=== PATIENT | male | born 1930 | race Caucasian/White ===

== ENCOUNTER 2017-06-03 23:28 | Inpatient (IN) | payer MEDICARE ==
[~2017-06-03] VITALS: Ht 177.8 cm; Wt 72.2 kg
[~2017-06-03 23:28] MED LIST: AMLO10TA3 PO; ASCO100089 PO; LOSA50TA37 PO; METO25TA6 PO; SIMV80TA4 PO; UBID100C25 PO; WARF2.5T82 PO
[2017-06-03 23:34] VITALS: BP 102/71; PULSE 169; RESP 26; O2SAT 97
--- NOTE | 2017-06-03 23:45 | ED.REPORT ---
HPI-General Illness Date of Service Jun 03, 2017 ED Provider: Dr. 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 He states he feels okay when he does not try to move or sit up, but becomes dizzy with minimal activity or upright posture. He reportedly felt dizzy, lightheaded and weak prior to the incident. His dizziness initially began at 1200 this afternoon but became worse prior to the syncopal episode. Associated symptoms include weakness and diaphoresis. Patient denies any similar previous episodes. He denies any SOB, chest pain, cough, nausea or vomiting. Nursing Notes Stated Complaint: WEAKNESS, DIZZY Chief Complaint: General Complaint Nursing Notes Reviewed: Yes Allergies: Coded Allergies: No Known Allergies (Verified , 04/20/04) Scheduled Amlodipine (Amlodipine) 10 Mg Tablet 5 MG PO PRN Ascorbic Acid (Vitamin C) 1,000 Mg Tab.chew 1,000 MG PO DAILY Losartan Potassium (Losartan Potassium) 50 Mg Tablet 50 MG PO HS Metoprolol Tartrate (Metoprolol Tartrate) 25 Mg Tablet 25 MG PO BID Simvastatin (Simvastatin) 80 Mg Tablet 40 MG PO HS Ubidecarenone (Co Q-10) 100 Mg Capsule 100 MG PO DAILY Warfarin Sodium (Warfarin Sodium) 2.5 Mg Tablet 2.5 MG PO MON,MON,MON Warfarin Sodium (Warfarin Sodium) 2.5 Mg Tablet 1.25 MG PO ,,MON,SUN General Time Seen by MD: 23:45 Chief Complaint Other (Syncope) Hx Obtained From: Patient Arrived By: Ambulance Sudden in Onset?: No Onset Occurred: 9 - 12 hours ago Symptom Duration: Since onset Associated with: Reports: Diaphoresis, Denies: Chest pain, Cough, Nausea, Shortness of breath, Vomiting Pertinent Negative: Pt denies other symptoms Recent Healthcare: No recent hospitalization, Recent doctor visit Past Medical History Past Medical History 1. Chronic cardiomyopathy 2. Chronic atrial fibrillation on anticoagulation therapy 3. 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 CA Past Surgical History Cardiac stent Smoking History Never Smoker Social History Other Social History: Local resident Ambulatory Status Independent Review of Systems Full Review of Systems Respiratory: Denies: Non-productive cough, Shortness of breath Cardiovascular: Denies: Chest pain GI: Denies: Nausea, Vomiting Skin: Reports Diaphoresis Neurologic: Reports: Dizziness, Lightheaded, Syncope, Weakness Complete sys rev & neg: except as marked. Physical Exam Vital Signs Vital Signs Date Time Temp Pulse Resp B/P Pulse Ox O2 Delivery O2 Flow Rate FiO2 06/03/17 23:34 169 26 102/71 97 Room Air Initial VS: Reviewed Skin: Warm, Dry, No cyanosis Neurologic: Alert, Oriented, Nonfocal Psychiatric: Mood/affect normal, Behavior normal, Normal thought content General/Constitutional: Awake, Alert Appearance / Presentation: Positive: Frail, Pale Head / Eyes: Atraumatic, Normocephalic, PERRL Neck: Atraumatic, Supple, No JVD Respiratory / Chest: Atraumatic, Breath sounds NL, Breath sounds = bilat, No respiratory distress Cardiovascular: No gallop, No murmurs, No rubs Heart Rate / Rhythm: Positive: Irreg irregular rhythm, Tachycardia Abdomen: Atraumatic, Soft, Non-tender Upper Extremities Upper Extremity / MS: Atraumatic, Neurologic intact, Vascular intact, No edema Lower Extremity / Pelvis / MS: Atraumatic, Neurologic intact, Vascular intact, No edema Interpretation & Diagnostics Lab Results Interpretation Result Diagram: 06/04/17 0345 06/03/17 2355 Test 06/03/17 23:55 Neutrophils (%) (Auto) 64.9% (40-74) Lymphocytes (%) (Auto) 21.0% (14-46) Monocytes (%) (Auto) 11.0% (4-12) Eosinophils (%) (Auto) 0.6% (0-5) Basophils (%) (Auto) 0.2% (0-3) Activated Partial Thromboplast Time 50.2sec (22.8-33.0) D-Dimer 12.98mg/L FEU (<0.50) Sodium Level 137mEq/L (134-144) Potassium Level 3.5mEq/L (3.5-5.2) Chloride Level 97mEq/L (97-108) Carbon Dioxide Level 18mmol/L (18-29) Blood Urea Nitrogen 14mg/dL (8-27) Creatinine 0.79mg/dL (0.76-1.27) Estimat Glomerular Filtration Rate 99mL/min (>59) Glucose Level 159mg/dL (60-99) Calcium Level 8.3mg/dL (8.5-10.1) Magnesium Level 1.9mg/dL (1.6-2.6) Total Bilirubin 0.6mg/dL (0.0-1.2) Aspartate Amino Transf (AST/SGOT) 92U/L (0-50) Alanine Aminotransferase (ALT/SGPT) 8U/L (0-44) Alkaline Phosphatase 2080U/L (25-160) Troponin T 0.031ug/L (0.0-0.011) Pro-B-Type Natriuretic Peptide 3148pg/mL (0-486) Total Protein 5.5g/dL (6.4-8.4) Albumin 2.7g/dL (3.4-5.0) ECG Interpretation ECG Interpretation: Atrial fibrillation Rate 169 bpm Time: 00:32 Interpreted by: ED physician X-Ray Chest Interpretation Chest Xray Interpretation: No acute abnormalities Interpretation / Wet Read by: Wet read ED physician Re-Eval/Medical Decision Med Decision/Clinical Course 87-year-old with prostate cancer metastatic to bone, presents in acute onset atrial fibrillation with rapid ventricular response, after two syncopal episodes. He has multiple other complicating issues. He is grossly anemic. Blood type and screen sent and may require transfusion if he declines any further. He is also thrombocytopenic, but his white cell line counts were normal. D-dimer was markedly elevated but a CT of his chest does not reveal pulmonary embolus. There are sizable pleural effusions bilaterally. 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 Additional primary cancer suspected with liver metastases. Admitted now for ongoing rate control, and evaluation of his multiple other issues. Likely to require transfused blood. Additional scanning to evaluate for source of primary cancer once stabilized. He is transported now on cardiac condition. Time of Eval: 00:54 Patient Status: Condition improved Re-Evaluation/Progress Note: Patient is re-evaluated. He is informed of his results and diagnosis. The patient understands and agrees with the intended treatment plan to admit to the hospital. Consultation : Referral / Consult Name: Gaurav Lanier MD Consulted With: Hospitalist Call Returned at: 00:49 Remote Advisor: Will see patient, Agrees with eval, Agrees with plan, Accepts admit Counseled Regarding: Diagnosis, Lab results, Need for admission Discharge & Departure Primary Impression: Atrial fibrillation with RVR Additional Impressions: Syncope Syncope type: unspecified Qualified Code: R55 - Syncope and collapse Anemia Anemia type: unspecified type Qualified Code: D64.9 - Anemia, unspecified Thrombocytopenia Liver metastases Prostate cancer Malignant neoplasm of unknown origin Disposition: ADMITTED TO HOSPITAL Discharge Condition All VS Reviewed: Yes Condition: Improved Referrals: NOPCP (PCP) [facility] Scribe Attestation Portions of this note were transcribed by Cuca Lambert. Dr. Oscar Gomez personally performed the history, physical exam and medical decision-making; I reviewed and confirmed the accuracy of the information in the transcribed note. Noel Moore MD Jun 03, 2017 23:45 CUCA LAMBERT Jun 03, 2017 23:53 Condition: Stable Referrals: NOPCP (PCP) [facility] Scribe Attestation Portions of this note were transcribed by Cuca Lambert. Dr. Oscar Gomez personally performed the history, physical exam and medical decision-making; I reviewed and confirmed the accuracy of the information in the transcribed note. Noel Moore MD Jun 03, 2017 23:45 CUCA LAMBERT Jun 03, 2017 23:53
[2017-06-03] MEDS ORDERED: 0.9% Sodium Chloride 1,000 ML IV ONE (23:51)
[2017-06-04] VITALS (13 sets, daily range): BP systolic 92–139; BP diastolic 47–84; PULSE 77–132; RESP 16–20; O2SAT 95–97
[2017-06-04 00:03] LABS: BASOPHILS % (AUTO) 0.2 % (0-3)
[2017-06-04 00:06] LABS: EOSINOPHILS % (AUTO) 0.6 % (0-5); Mean Corpuscular Hemoglobin 26.9 pg (27.0-35.0); Mean Corpuscular Volume 84.4 fL (81-100); NEUTROPHILS % (AUTO) 64.9 % (40-74)
[2017-06-04] MEDS: Diltiazem 5 mg/mL 5 mL Inj IVPUSH PRN ×2 (00:10→01:14)
[2017-06-04] MEDS: Diltiazem HCl 125 MG in 0.9% Sodium Chloride 100 ML, Pharmacy To Mix 1 EA IV SCH ×2 (00:19→01:10)
[2017-06-04 00:22] LABS: Platelet Count 136 bil/L (150-400)
[2017-06-04 00:27] LABS: INR 3.11 ratio
[2017-06-04 00:34] LABS: TROPONIN T 0.031 ug/L (0.0-0.011)
[2017-06-04 00:39] LABS: D-Dimer 12.98 mg/L FEU (<0.50)
[2017-06-04 00:48] LABS: Magnesium 1.9 mg/dL (1.6-2.6)
[2017-06-04] MEDS ORDERED: Alum-Mag Hydrox-Simeth 30 mL Suspension PO PRN (00:55)
[2017-06-04] MEDS ORDERED: Polyethylene Glycol (PEG) 17 Gm Powder PO PRN (00:55)
[2017-06-04] MEDS ORDERED: Ondansetron 2 mg/mL 2 mL Inj IVPUSH PRN (00:55)
--- NOTE | 2017-06-04 02:32 | PCM.HPMED ---
Subjective Date of Service Jun 04, 2017 Primary Provider: Admitting Physician: Primary Care Physician: Edgard Attending Physician: Admit Status: From the Emergency Department, Full Admit, [facility] Telemetry Chief Complaint: Dizziness History of Present Illness: Albaro Toledo is an 87 year old male with a history of chronic cardiomyopathy , chronic atrial fibrillation on anticoagulation therapy, and metastatic Prostate cancer, with bone metastases, and previous [place] s/p stent present to [facility] emergency department via EMS with dizziness that began at 1200 this afternoon. Associated symptoms include generalized weakness (significant change from baseline causing trouble walking and doing activities daily) and diaphoresis. He denies any chest pain or dyspnea or palpitations. His symptoms became worse as the day progressed and reported to have passed out briefly while walking at home. Patient denies any similar previous episodes. Symptoms seems to be related to the last chemotherapy regimen he had 6 weeks ago. He developed poor appetite and weakness and the chemotherapy (docetaxel) was stopped. He reported having a fever last week but denies any urinary symptoms or coughing. He denies any sick contact He is compliant with all his medications. Case discussed with Dr Moore, tachycardia with a fib with rapid ventricular response and placed on Cardizem drip. Plan to admit Review of Systems: Pertinent positives as noted in HPI. All other systems were reviewed and are negative Allergies Coded Allergies: No Known Allergies (Verified , 04/20/04) Home Medications From [facility], not yet confirmed Albaro Toledo [id number] 1930 05/30/2017 11:30 AM Page: 11/10 amlodipine 10 mg tablet take 0.5 tablet by oral route every day for one week and then 1 tablet daily atorvastatin 20 mg tablet take 1 tablet by oral route every day Coq10 Sg 100 100-100 Mg-Unit Capsul 1 tablet by mouth daily losartan 100 mg tablet take 1 tablet by oral route every night (replaces losartan 50mg twice daily) metoprolol tartrate 25 mg tablet take 1 tablet by oral route 2 times every day Vitamin C 1,000 mg tablet take 1 by oral route every day warfarin 2.5 mg tablet take 1 tablet by oral route every evening or take as directed by your Anticoagulation Clinic [facility] Paroxysmal Chronic Atrial fibrillation on anticoagulations Metastatic castrate resistant prostate cancer, with bone metastases. history of sinus bradycardia Coronary artery disease s/p PTCA Hypertension Pericardial effusion Hyperlipidemia . Surgical History Cardiac cath 2002 PTCA with LAD stent Family History Mother of unknown cancer 78 Brother has coronary artery disease Social History Hx Alcohol Use: Yes Hx Substance Use: No Hx Tobacco Use: Yes Smoking Status: Former Smoker Living Arrangement: with Family Exam Vital Signs Vital Sign - Last Date Time Temp Pulse Resp B/P Pulse Ox O2 Delivery O2 Flow Rate FiO2 06/03/17 23:34 169 26 102/71 97 Room Air Intake and Output 06/03/17 06/03/17 06/04/17 Cumulative From/Thru 15:00 23:00 07:00 06/03/17 23:34 - 06/04/17 00:02 Intake Total 1000 ml 1000 ml Balance 1000 ml 1000 ml Intake IV Total 1000 ml 1000 ml Exam General: Alert, Oriented X3, Cooperative, No acute Distress but looks weak Eyes: PERRLA, Scleral Anicteric Mouth: Mouth Normal, Mucous Membranes dry Neck: Supple, no Thyromegaly, trachea central. Chest & Lungs: Clear to auscultation & percussion, No adventitious breath sounds, no crackles, no wheeze Cardiovascular: Normal S1, Normal S2, No Murmurs/Rubs/Gallops, Regular Rate/ Rhythm, irregularly irregular rhythm (No JVD, no peripheral edema) Pulses: Radial (present and equal), Dorsalis Pedi (present and equal) Abdomen: Soft, Non-tender, Non-distended, Normoactive bowel tones. Musculoskeletal: Unremarkable. Normal range of motion, no swollen or erythematous joints Extremities: No edema, no cyanosis, no clubbing. Skin: No rashes. Warm and dry, no erythematous areas Neurological: Grossly neurologically intact, has generalized weakness, Normal Speech, Sensation Intact Lymphatic: Lymph nodes Cervical and Axillary not palpable. Lab and Diagnostics Labs Laboratory Tests Test 06/03/17 23:55 White Blood Count 8.3th/mm3 (3.8-10.1) Red Blood Count 3.01mil/mm3 (4.40-5.80) Hemoglobin 8.1g/dL (13.8-17.2) Hematocrit 25.4% (41.0-50.0) Mean Corpuscular Volume 84.4fL (81-100) Mean Corpuscular Hemoglobin 26.9pg (27.0-35.0) Mean Corpuscular Hemoglobin Concent 31.9% (32.0-37.0) Red Cell Distribution Width 22.1% (12.3-15.4) Platelet Count 136bil/L (150-400) Neutrophils (%) (Auto) 64.9% (40-74) Lymphocytes (%) (Auto) 21.0% (14-46) Monocytes (%) (Auto) 11.0% (4-12) Eosinophils (%) (Auto) 0.6% (0-5) Basophils (%) (Auto) 0.2% (0-3) Prothrombin Time 34.1sec (8.1-12.5) Prothromb Time International Ratio 3.11ratio Activated Partial Thromboplast Time 50.2sec (22.8-33.0) D-Dimer 12.98mg/L FEU (<0.50) Sodium Level 137mEq/L (134-144) Potassium Level 3.5mEq/L (3.5-5.2) Chloride Level 97mEq/L (97-108) Carbon Dioxide Level 18mmol/L (18-29) Blood Urea Nitrogen 14mg/dL (8-27) Creatinine 0.79mg/dL (0.76-1.27) Estimat Glomerular Filtration Rate 99mL/min (>59) Glucose Level 159mg/dL (60-99) Lactic Acid Level 3.1mmol/L (0.4-2.0) Calcium Level 8.3mg/dL (8.5-10.1) Magnesium Level 1.9mg/dL (1.6-2.6) Total Bilirubin 0.6mg/dL (0.0-1.2) Aspartate Amino Transf (AST/SGOT) 92U/L (0-50) Alanine Aminotransferase (ALT/SGPT) 8U/L (0-44) Alkaline Phosphatase 2080U/L (25-160) Troponin T 0.031ug/L (0.0-0.011) Pro-B-Type Natriuretic Peptide 3148pg/mL (0-486) Total Protein 5.5g/dL (6.4-8.4) Albumin 2.7g/dL (3.4-5.0) Result Diagram: 06/03/17 4390 06/03/17 7074 Assessment & Plan Albaro Toledo is an 87 year old male with a history of chronic cardiomyopathy , chronic atrial fibrillation on anticoagulation therapy, and metastatic Prostate cancer, with bone metastases, and previous [place] s/p stent present to [facility] emergency department via EMS with dizziness 1. Atrial Fibrillation with rapid ventricular response. Present on admission Patient reporting compliance with Metoprolol. Potential etiology includes underlying ischemia or side effect from chemotherapy. No evidence of any infection at this time - monitor on telemetry - continue rate control with Cardizem drip, transition to PO Metoprolol with rate controlled - CT scan to rule out Pulmonary embolism - trending troponin - consider an official consult with Cardiology if tachycardia persists 2 Elevated troponin with Coronary artery disease s/p PTCA. Present on admission Likely demand ischemia from tachycardia. Non ST elevation Myocardial infarction less likely. No signs of fluid overload but rather on the dry side - trending troponin overnight - complete echo tomorrow 3 Lactic acidosis. Present on admission Due to tissue ischemia - trending levels till normal - Fluids with NS @ 100 cc/hr 4 Chronic anticoagulation with Coumadin No evidence of bleeding with INR 3.11 - Pharmacy to dose Coumadin 5 Hypertension - resuming Amlodipine 5 mg daily and Losartan 100 mg daily 6 Hyperlipidemia - presumed stable - continue Atorvastatin 20 mg daily 7 Metastatic castrate resistant prostate cancer, with bone metastases. Patient developed major toxicity from docetaxel. Review of Dr Longo plan for enzalutamide - follow up at the Cancer [facility] - Acetaminophen as needed for mild pain/fever/headache - Bowel regimen as needed - Antiemetic as needed Patient admitted under inpatient status with expected length of stay > 2 midnights for severity of present symptoms, complexities of treatment plan and risk for adverse event . VTE Prophylaxis: Other (already on Coumadin) Resuscitation Status: CPR: Attempt Resuscitation Gaurav Lanier MD Jun 04, 2017 01:00
[2017-06-04] MEDS: 0.9% Sodium Chloride 1,000 ML IV SCH ×3 (03:17→22:51)
[2017-06-04 04:12] LABS: Mean Corpuscular Hemoglobin 26.8 pg (27.0-35.0)
[2017-06-04 04:23] LABS: INR 2.82 ratio
--- NOTE | 2017-06-04 06:26 | NUR ---
NEW ADMIT To the floor around 0200 from ED. Pt on Dilt gtt @ 10ml/hr. Pt is still A-fib in the 90-110's. Pt denies any pain, N/V or dizziness at this time. Admit complete, no other issues noted @ this time.
--- NOTE | 2017-06-04 07:32 | DRSVH ---
PROCEDURE: CT ANGIO CHEST PULMONARY EMBOLISM ([id number]) INDICATIONS: 87-year-old male with prostate carcinoma, atrial fibrillation and elevated d-dimer level s. TECHNIQUE: After the administration of intravenous contrast, 2 mm thick sections acquired from the pulmonary api raymond to the posterior costophrenic angles. 3-dimensional maximum intensity projection (MIP) coronal a nd sagittal reformats were then acquired through the thorax. For radiation dose reduction, the follo wing was used: automated exposure control, adjustment of mA and/or kV according to patient size. COMPARISON: [facility], CT, CT CHEST ABD PELVIS W CON, 12/29/2016, 11:16. [facility], CT, CT CHEST ABD PELVIS W CON, 10/18/2016, 9:38. [facility], CT, CT CHEST ABD PELVIS W CON, 02/22/2016, 10:28. [facility], CT, CT CHEST ABD PELVIS W CON, 06/23/2015, 11 :16. FINDINGS: Preliminary interpretation rendered by [facility]. Image quality: Excellent. Pulmonary arteries: Pulmonary arteries are normal in size, and demonstrate no intraluminal filling d efects to suggest central pulmonary embolism. Lungs and pleura: Moderate bilateral dependent pleural effusions are now present, with bibasilar comp ressive atelectasis. Aerated lungs appear clear. Central and peripheral airways are patent. Mediastinum: Heart size is normal, with moderate pericardial effusion unchanged. No mediastinal or hilar adenopathy by CT size criteria. Several calcified mediastinal lymph nodes are again noted. Tho racic aorta is normal in caliber and enhancement. Esophagus is normal in caliber, without hiatal her juanita. Bones and chest wall: Widespread sclerotic bony metastases are again noted. No pathologic vertebral b anila compression fractures. T8-T10 incomplete congenital vertebral body coalition is present. Thyroid gland is normal in overall size. No axillary or supraclavicular adenopathy. Moderate bilateral gyne comastia is again noted. Abdomen: Hepatic and splenic simple cysts are again noted. There is interval increased degree of bila teral diffuse adrenal gland thickening, without discrete nodules. IMPRESSION: 1. No evidence for central pulmonary embolism. 2. Moderate bilateral dependent mobile pleural effusions are new since December 2016, of uncertain et iology. 3. Moderate chronic circumferential pericardial effusion persists. 4. Multiple hepatic and splenic simple cysts as before. 5. Interval increased degree of bilateral adrenal gland thickening, consistent with hyperplasia. 6. Moderate bilateral gynecomastia as before may be secondary to medication side effects. 7. Widespread sclerotic bony metastases from prostate carcinoma. No significant discrepancy with preliminary [facility] report. Dictated by: Bull Mendes M.D. on 06/04/2017 at 7:20 Approved by: Bull Mendes M.D. on 06/04/2017 at 7:30
--- NOTE | 2017-06-04 07:41 | DRSVH ---
PROCEDURE: X-RAY CHEST ONE VIEW, PORTABLE ([id number]) INDICATIONS: 87-year-old male with prostate carcinoma and weakness. TECHNIQUE: One view of the chest was acquired. COMPARISON: [facility], CR, XR CHEST 2VW, 03/01/2017, 11:23. FINDINGS: Surgical changes and devices: None. Lungs and pleura: There is new retrocardiac airspace opacity. Lungs are otherwise clear. A skinfold p rojects over the lateral right hemithorax, mimicking pneumothorax. No visible pleural effusions. Mediastinum: Mediastinal contours appear normal. Heart size is normal. There is aortic atheroscler osis. Bones and chest wall: Widespread sclerotic bony metastases are again noted. Left shoulder dependent i nterarticular bodies are again noted. Overlying soft tissues appear unremarkable. IMPRESSION: 1. New localized retrocardiac atelectasis, aspiration, or early pneumonia. 2. Widespread sclerotic bony metastases from prostate carcinoma. Dictated by: Bull Mendes M.D. on 06/04/2017 at 7:36 Approved by: Bull Mendes M.D. on 06/04/2017 at 7:38
[2017-06-04] MEDS: Potassium Chloride 20 mEq SR Tablet PO SCH ×2 (09:00→20:02)
--- NOTE | 2017-06-04 13:21 | PCM.PNMED ---
Subjective Date of Service Jun 04, 2017 Subjective Albaro Toledo is an 87 year old male with a history of chronic cardiomyopathy , chronic atrial fibrillation on anticoagulation therapy, and metastatic Prostate cancer, with bone metastases, and previous ND s/p stent present to [facility] emergency department via EMS with dizziness that began at 1200 this afternoon. Associated symptoms include generalized weakness (significant change from baseline causing trouble walking and doing activities daily) and diaphoresis. He denies any chest pain or dyspnea or palpitations. His symptoms became worse as the day progressed and reported to have passed out briefly while walking at home. Patient denies any similar previous episodes. Symptoms seems to be related to the last chemotherapy regimen he had 6 weeks ago. He developed poor appetite and weakness and the chemotherapy (docetaxel) was stopped. He reported having a fever last week but denies any urinary symptoms or coughing. He denies any sick contact No significant overnight events: Patient reports feeling well today. He and his report a decrease in appetite and subsequent decrease in fluid and PO nutritional intake for at least the past 3 months. He denies dizziness, chest pain, MATTA, nausea, vomiting, change in vision , abdominal pain, diarrhea. Exam Vital Signs Vital Sign - Last Date Time Temp Pulse Resp B/P Pulse Ox O2 Delivery O2 Flow Rate FiO2 06/04/17 12:08 104 114/70 96 06/04/17 11:37 36.7 16 06/04/17 02:57 Room Air Intake and Output 06/03/17 06/03/17 06/04/17 Cumulative From/Thru 15:00 23:00 07:00 06/03/17 23:34 - 06/04/17 06:39 Intake Total 1340 ml 1340 ml Output Total 720 ml 720 ml Balance 620 ml 620 ml Intake Oral 0 ml 0 ml IV Total 1340 ml 1340 ml Output Urine Total 720 ml 720 ml Exam General: Alert, Oriented X3, Cooperative, No acute Distress but looks weak Eyes: PERRLA, Scleral Anicteric Mouth: Mouth Normal, Mucous Membranes dry Neck: Supple, no Thyromegaly, trachea central. Chest & Lungs: Clear to auscultation & percussion, No adventitious breath sounds, no crackles, no wheeze Cardiovascular: Normal S1, Normal S2, No Murmurs/Rubs/Gallops, Regular Rate/ Rhythm, irregularly irregular rhythm (No JVD, no peripheral edema) Pulses: Radial (present and equal), Dorsalis Pedi (present and equal) Abdomen: Soft, Non-tender, Non-distended, Normoactive bowel tones. Musculoskeletal: Unremarkable. Normal range of motion, no swollen or erythematous joints Extremities: No edema, no cyanosis, no clubbing. Skin: No rashes. Warm and dry, no erythematous areas Neurological: Grossly neurologically intact, has generalized weakness, Normal Speech, Sensation Intact Lymphatic: Lymph nodes Cervical and Axillary not palpable. IVs and Medications Medications Reviewed: Medications were reviewed in detail Lab and Diagnostics Result Diagram: 06/04/17 9206 06/03/17 7080 Assessment & Plan Albaro Toledo is an 87 year old male with a history of chronic cardiomyopathy , chronic atrial fibrillation on anticoagulation therapy, and metastatic Prostate cancer, with bone metastases, and previous ND s/p stent present to [facility] emergency department via EMS with dizziness Atrial Fibrillation with rapid ventricular response. Present on admission Patient reporting compliance with Metoprolol. Potential etiology includes underlying ischemia or side effect from chemotherapy. No evidence of any infection at this time - monitor on telemetry - Cardizem drip transitioned to PO diltiazem, - Will address transition to PO Metoprolol with rate controlled - CT scan to rule out Pulmonary embolism - consider an official consult with Cardiology if tachycardia persists Elevated troponin with Coronary artery disease s/p PTCA. Present on admission. Resolved. Likely demand ischemia from tachycardia. Non ST elevation Myocardial infarction less likely. No signs of fluid overload but rather on the dry side - Troponin trended down. - complete echo tomorrow Lactic acidosis. Present on admission. Resolved. Due to tissue ischemia - Fluids with NS @ 100 cc/hr Chronic anticoagulation with Coumadin No evidence of bleeding with INR 3.11 - Pharmacy to dose Coumadin Hypertension - resuming Amlodipine 5 mg daily and Losartan 100 mg daily Hyperlipidemia - presumed stable - continue Atorvastatin 20 mg daily Metastatic castrate resistant prostate cancer, with bone metastases. Patient developed major toxicity from docetaxel. Review of Dr Longo plan for enzalutamide - follow up at the Cancer Clinic - Acetaminophen as needed for mild pain/fever/headache - Bowel regimen as needed - Antiemetic as needed Patient admitted under inpatient status with expected length of stay > 2 midnights for severity of present symptoms, complexities of treatment plan and risk for adverse event . Pain Evaluation: Adequate Pain Control VTE Prophylaxis: Other (already on Coumadin) Resuscitation Status: CPR: Attempt Resuscitation Time spent 35 minutes Attending Statement I interviewed and examined the patient on rounds today. Symptomatically improving today but needs continued rate control. I agree with the assessment and plan as stated above. SHANNAN KENDALL DO Jun 04, 2017 13:21 Rasta Stacy MD Jun 04, 2017 17:42
--- NOTE | 2017-06-04 15:31 | NUR ---
Social Work: Note D&A: SECURITY SYSTEM INSTALLER reviewed EMR, which states pt is at [facility] with ANAHY, syncope, and hypotension. pt primary insurance is Medicare with an AARP supplement. Per MD in AM rounds, pt is likely to d/c home with his via POV, with no needs. SECURITY SYSTEM INSTALLER met with pt at bedside and explained SECURITY SYSTEM INSTALLER role. Pt states that he is feeling poorly and declines to participate in initial assessment at this time. P: SECURITY SYSTEM INSTALLER will follow to complete initial assessment when pt is amenable. JEFFERSON Melvin
--- NOTE | 2017-06-04 18:59 | NUR ---
Cardizem/Pain Pt's cardizem drip was discontinued and he was started on 30mg PO cardizem at 1420. By about 1500 his heart rate began trending upwards. By 1745 rate was in the 130's. Blood pressure was stable. was notified. Order for 60mg cardizem x1 now was given. Will continue to monitor. Pt reporting back pain through much of the shift, finding it difficult to get into a comfortable position. Tylenol given with little effectiveness. Repositioning and heat pad seemed to provide the best relief for the patient. Continue to monitor.
[2017-06-04 22:44] LABS: APPEARANCE,URINE CLEAR (CLEAR,HAZY); COLOR,URINE YELLOW (YELLOW); OCCULT BLOOD,URINE NEGATIVE (NEGATIVE); UROBILINOGEN,URINE NORMAL (NORMAL)
[2017-06-05] VITALS (11 sets, daily range): BP systolic 96–140; BP diastolic 50–105; PULSE 56–75; RESP 14–21; O2SAT 92–97
[2017-06-05 03:48] LABS: INR 3.24 ratio
--- NOTE | 2017-06-05 06:05 | NUR ---
TELE/PAIN Pt converted to SR @ 0022. Pt currently SR 60's, Pt complained of back discomfort and declined 'pain' medication. Pt stated he hurts all over and is in a lot of discomfort, but not pain. Pt requested essential oils be rubbed on his back and legs to help him relax. approved the essential oils and it seemed to alleviate some discomfort. Pt reevaluated the term 'pain' medication and decided to take it for his discomfort. Pt took 2 Tylenol with good results.
[2017-06-05] MEDS: Potassium Chloride 20 mEq SR Tablet PO SCH ×2 (10:12→22:25)
--- NOTE | 2017-06-05 10:49 | NUR ---
Palliative Care Palliative Care received verbal order from Dr Magana 06/05/17 to assist with goals of care/symptom management. Patient admitted 06/04/17. Vika Paris () [phone], Rosy Blanca (daughter) [phone], Palliative Care to follow. Rossi Gomez
--- NOTE | 2017-06-05 13:22 | PCM.CONPAL ---
Date of Service Jun 05, 2017 Date of Hospital Admission: Jun 04, 2017 at 01:26 Date of Palliative Consult: Jun 05, 2017 Requesting Provider: SHANNAN KENDALL DO Comment: describes as "discomfort"--not as pain. Reports tolerable. Reason Palliative Care Consult: Pain, Advance Care Planning, Goals of Care Discussion Reason for Consultation Palliative Care received verbal order from Dr Kendall 06/05/17 to assist with goals of care/symptom management. Patient admitted 06/04/17. Vika Toledo () [phone], Rosy Rios (daughter) [phone], Hospital Unit @time of consult: Progressive Care (room 3) Palliative Care Recommendation Summary of palliative recommendations: -Symptom management (Pain/other): Patient complained of very bad pain yesterday for which he was given a medication which he can't remember, review of chart shows that it was Tylenol and tramadol. Today he does not complain of any pain , only states he is uncomfortable from being in bed, affecting his lower back. He is not requesting any pain medication. Keep Tylenol available when necessary for pain. -DPOA/Advanced Directives/POLST: Patient remains full code. CODE STATUS was not formally addressed at today's encounter will revisit at tomorrow's visit. -Family/emotional support: Lives with , has 3 living children in the area including biological and stepchildren. One of his daughters, Rosy Rios, is a respiratory therapist here at [facility]. We have been given permission to discuss his health with the daughter. conveys that they have a lot of support from family and friends in the area. -Spiritual support: Spiritual needs were not evaluated at today's encounter. - Plan to meet tomorrow, 06/06/2017 with patient, , and daughter, at 1 PM in his hospital room. Patient Goals to be discussed tomorrow with family present. Additional Medical Diagnoses with primary management by Hospitalist team include : Problems: End of Life Preferences Was conveyed at multidisciplinary Rounds that " is allergic to the word hospice." End-of-life preferences to be further evaluated at tomorrow's visit. Resuscitation Status Resuscitation Status: CPR: Attempt Resuscitation POLST Updates/Changes Previous POLST?: No . Pain: Mild Pt History History of Present Illness From admission note: Albaro Toledo is an 87 year old male with a history of chronic cardiomyopathy , chronic atrial fibrillation on anticoagulation therapy, and metastatic Prostate cancer, with bone metastases, and previous [place] s/p stent present to [facility] emergency department via EMS with dizziness that began at 1200 this afternoon. Associated symptoms include generalized weakness (significant change from baseline causing trouble walking and doing activities daily) and diaphoresis. He denies any chest pain or dyspnea or palpitations. His symptoms became worse as the day progressed and reported to have passed out briefly while walking at home. Patient denies any similar previous episodes. Symptoms seems to be related to the last chemotherapy regimen he had 6 weeks ago. He developed poor appetite and weakness and the chemotherapy (docetaxel) was stopped. He reported having a fever last week but denies any urinary symptoms or coughing. He denies any sick contact He is compliant with all his medications. Past Medical History Significant PMH Noted: Paroxysmal chronic atrial fibrillation on anticoagulation Metastatic castrate resistant prostate cancer, with bone metastases History of sinus bradycardia Coronary artery disease status post PTCA Hypertension Pericardial effusion Hyperlipidemia Social History Social Support: Lives with and children are present in the region. states plenty of social support at home. Living Situation: Lives with in [facility] Performance Scale PPS Patient Status: Current (at baseline patient is able to take care of himself, he typically walks from one room to another to sit down for long periods of time. They have admission patient was unable to hold himself up by standing or using his walker.) PPS Ambulation: Reduced PPS Self-Care: Occasional assistance necessary PPS Intake: Normal or reduced PPS Conscious Level: Full ADLs ADL Ambulation: Reduced Medications Current Medications: Current Medications Diltiazem HCl 5 mg 5 mg Q15M PRN IVPUSH Last administered on 06/04/17 01:14; Admin Dose 5 MG; Start 06/03/17 at 23:55 Diltiazem HCl/ Sodium Chloride/ Miscellaneous 125 ml @ 5 mls/hr Q24H IV Last administered on 06/04/17 01:10; Admin Dose 10 MLS/HR; Start 06/03/17 at 23:55; Stop 06/04/17 at 13:21; Status DC Al Hydrox/Mg Hydrox/Simethicone 30 ml Q6H PRN PO; Start 06/04/17 at 00:55 Ondansetron HCl 4 to 8 mg Q4H PRN IVPUSH; Start 06/04/17 at 00:55 Senna 17.2 mg BID PRN PO Last administered on 06/05/17 11:14; Admin Dose 17.2 MG; Start 06/04/17 at 00:55 Polyethylene Glycol 17 gm DAILY PRN PO; Start 06/04/17 at 00:55 Acetaminophen 650 mg Q4H PRN PO Last administered on 06/04/17 21:57; Admin Dose 650 MG; Start 06/04/17 at 00:55 Pharmacy Consult 1 ea 1 ea DAILY@17 XX; Start 06/04/17 at 17:00 Sodium Chloride 1,000 ml @ 100 mls/hr Q10H IV Last administered on 06/04/17 22 :51; Admin Dose 100 MLS/HR; Start 06/04/17 at 02:50; Stop 06/05/17 at 07:36; Status DC Potassium Chloride 20 meq BID PO Last administered on 06/05/17 10:12; Admin Dose 20 MEQ; Start 06/04/17 at 08:30 Diltiazem HCl 30 mg BID PO Last administered on 06/04/17 13:52; Admin Dose 30 MG; Start 06/04/17 at 13:20; Stop 06/04/17 at 14:07; Status DC Diltiazem HCl 30 mg Q6 PO; Start 06/04/17 at 20:30; Stop 06/04/17 at 20:30; Status DC Diltiazem HCl 90 mg Q6H PO; Start 06/04/17 at 23:00; Stop 06/04/17 at 23:00; Status DC Diltiazem HCl 90 mg Q6H PO Last administered on 06/05/17 06:25; Admin Dose 90 MG; Start 06/05/17 at 00:01; Stop 06/05/17 at 07:36; Status DC Diltiazem HCl 60 mg Q6H PO Last administered on 06/05/17 12:29; Admin Dose 60 MG; Start 06/05/17 at 12:01 Metoprolol Tartrate 25 mg BID PO Last administered on 06/05/17 10:12; Admin Dose 25 MG; Start 06/05/17 at 08:30 Scheduled Amlodipine (Amlodipine) 10 Mg Tablet 5 MG PO PRN Ascorbic Acid (Vitamin C) 1,000 Mg Tab.chew 1,000 MG PO DAILY Losartan Potassium (Losartan Potassium) 50 Mg Tablet 50 MG PO HS Metoprolol Tartrate (Metoprolol Tartrate) 25 Mg Tablet 25 MG PO BID Simvastatin (Simvastatin) 80 Mg Tablet 40 MG PO HS Ubidecarenone (Co Q-10) 100 Mg Capsule 100 MG PO DAILY Warfarin Sodium (Warfarin Sodium) 2.5 Mg Tablet 2.5 MG PO MON,WED,MON Warfarin Sodium (Warfarin Sodium) 2.5 Mg Tablet 1.25 MG PO ,,SAT,SUN Objective Findings Exam Vital Sign - Last Date Time Temp Pulse Resp B/P Pulse Ox O2 Delivery O2 Flow Rate FiO2 06/05/17 12:06 36.7 70 16 113/59 95 Room Air Intake and Output 06/04/17 06/04/17 06/05/17 Cumulative From/Thru 15:00 23:00 07:00 06/03/17 23:34 - 06/05/17 06:51 Intake Total 1490 ml 1326 ml 4156 ml Output Total 750 ml 300 ml 1770 ml Balance 740 ml 1026 ml 2386 ml Intake Oral 440 ml 150 ml 590 ml IV Total 1050 ml 1176 ml 3566 ml Output Urine Total 750 ml 300 ml 1770 ml Objective General: Laying in bed, no apparent distress. HEENT: Normocephalic, atraumatic, EOMI grossly, edentulous, very hard of hearing Cardiovascular: Distal extremities warm, sinus rhythm by telemetry with occasional PVCs. Pulmonary: Chest excursion equal bilaterally, cough is absent. Extremities: No edema appreciated. Neuro: Neurologically grossly intact, strength is equal bilaterally upper and lower extremities. MSK: Able to move upper extremities on his own volition. Psych: AOx3, affect is appropriate and congruent. Lab/Diagnostics Lab and Imaging results reviewed in detail in EMR. Time spent Total time 30 minutes; >50% face to face with patient and/or family, providing counselling regarding plans and recommendations, and in care coordination with his/her medical teams. Attending Statement Dr. Pollock present and physically available for pt/family interaction, and discussed plan with resident physician. She agrees with documentation outlined above by Dr. Ritchie. Bc Ritchie DO Jun 05, 2017 13:22 Liliane Pollock MD Jun 05, 2017 15:43
--- NOTE | 2017-06-05 13:35 | NUR ---
NUTRITION CONSULT Assess: 87 YO M admitted with afib, syncope, and hypotension. Consult received as pt has poor appetite. Pt has prostate cancer and recently decided to stop chemotherapy. Pt did not want to speak but directed all questions to his . Spoke with pt's regarding poor appetite and weight loss. She states he has lost 30 lbs in 3.5-4 months due to chemotherapy. She reports he has no appetite today but was able to eat some cuban toast, mashed potatoes, and green beans yesterday. states he will like a food but then won't want it for at least a week. Pt does not like supplements such as Ensure or Boost but is open to clear liquid supplements. Palliative consult planned. PMHX: Afib, prostate cancer with bone mets, sinus bradycardia, CAD, HTN, pericardial effusion, HLD. DIET: Heart Healthy. PO intake 0%. LABS: (06/03): Glu 159, Ca 8.3, AST 92, Alk Phos 2080, Alb 2.7 MEDICATIONS: Reviewed. Coumadin, Senna. GI: No BM noted. SKIN: No issues noted. ANTHROPOMETRICS: WT: 73.1 kg, BMI 23.1 kg/m2, Admit wt: 69.0 kg. Reported wt loss 30 lbs X 3 months. Per EMR, previous wt of 86.4 kg (11/18/16) = significant wt loss of 13.3 kg (15% of BW X 6 months). ESTIMATED NEEDS: CANCER Calories: 7110-7815 kcal/day (25-30 kcal/kg BW) Protein: 73-110 g/day (1.0-1.5 g/kg BW) NUTRITION DIAGNOSIS: 1) Inadequate oral intake related to decreased ability to consume sufficient energy as evidenced by poor PO, reported wt loss of 30 lbs X 4 months (confirmed by EMR). INTERVENTION: 1) Will add Ensure clear to pt's meals to encourage adequate nutrition. Pt does not like regular Ensure or other thick supplements. 2) Provided high calorie/protein nutrition therapy. Provided handout and high calorie/protein recipe booklet. 3) Recommend considering an appetite stimulant. 4) Recommend liberalization of diet from heart healthy to general. Heart healthy diet likely will have no benefit on pt with advanced age + cancer. 5) Discussed adding snacks to pt's diet, didn't think he would want anything we had. Encouraged pt's to contact RD if she thinks of a snack he may like. 6) Encouraged pt's to bring foods from home pt would like. MONITOR/EVALUATE: PO intake, diet tolerance, labs, weight, POC, GI/nutrition status. Follow per high nutrition risk guidelines.
--- NOTE | 2017-06-05 14:00 | NUR ---
Scheduled hospital follow up appointment for 06/13/17 at [facility] Res[facility] check in at 945AM for 10AM appointment with Updated SENIOR BIOSTATISTICIAN/GROUP LEADER
--- NOTE | 2017-06-05 14:14 | PCM.PNMED ---
Subjective Date of Service Jun 05, 2017 Subjective Albaro Toledo is an 87 year old male with a history of chronic cardiomyopathy , chronic atrial fibrillation on anticoagulation therapy, and metastatic Prostate cancer, with bone metastases, and previous [place] s/p stent present to [facility] emergency department via EMS with dizziness that began at 1200 this afternoon. Associated symptoms include generalized weakness (significant change from baseline causing trouble walking and doing activities daily) and diaphoresis. He denies any chest pain or dyspnea or palpitations. His symptoms became worse as the day progressed and reported to have passed out briefly while walking at home. Patient denies any similar previous episodes. Symptoms seems to be related to the last chemotherapy regimen he had 6 weeks ago. He developed poor appetite and weakness and the chemotherapy (docetaxel) was stopped. He reported having a fever last week but denies any urinary symptoms or coughing. He denies any sick contact Overnight events: Patient continues to report lower back discomfort and difficult sleeping overnight. Patient reports feeling okay today. He would like to go home. He had a "rough" night due to general frustration with weakness, uncomfortable hospital bed and continued lower back discomfort. He denies dizziness, chest pain, MATTA, nausea, vomiting, change in vision , abdominal pain, diarrhea. Exam Vital Signs Vital Sign - Last Date Time Temp Pulse Resp B/P Pulse Ox O2 Delivery O2 Flow Rate FiO2 06/05/17 12:06 36.7 70 16 113/59 95 Room Air Intake and Output 06/04/17 06/04/17 06/05/17 Cumulative From/Thru 15:00 23:00 07:00 06/03/17 23:34 - 06/05/17 06:51 Intake Total 1490 ml 1326 ml 4156 ml Output Total 750 ml 300 ml 1770 ml Balance 740 ml 1026 ml 2386 ml Intake Oral 440 ml 150 ml 590 ml IV Total 1050 ml 1176 ml 3566 ml Output Urine Total 750 ml 300 ml 1770 ml Exam General: Alert, Oriented X3, Cooperative, No acute Distress but looks weak Eyes: PERRLA, Scleral Anicteric Mouth: Mouth Normal, Mucous Membranes dry Neck: Supple, no Thyromegaly, trachea central. Chest & Lungs: Clear to auscultation & percussion, No adventitious breath sounds, no crackles, no wheeze Cardiovascular: Normal S1, Normal S2, No Murmurs/Rubs/Gallops, Regular Rate/ Rhythm, irregularly irregular rhythm (No JVD, no peripheral edema) Pulses: Radial (present and equal), Dorsalis Pedi (present and equal) Abdomen: Soft, Non-tender, Non-distended, Normoactive bowel tones. Musculoskeletal: Unremarkable. Normal range of motion, no swollen or erythematous joints Extremities: No edema, no cyanosis, no clubbing. Skin: No rashes. Warm and dry, no erythematous areas Neurological: Grossly neurologically intact, has generalized weakness, Normal Speech, Sensation Intact Lymphatic: Lymph nodes Cervical and Axillary not palpable. Lab and Diagnostics Result Diagram: 06/04/17 5285 06/03/17 2883 Assessment & Plan Albaro Toledo is an 87 year old male with a history of chronic cardiomyopathy , chronic atrial fibrillation on anticoagulation therapy, and metastatic Prostate cancer, with bone metastases, and previous [place] s/p stent present to [facility] emergency department via EMS with dizziness. Metastatic castrate resistant prostate cancer, with bone metastases. Patient developed major toxicity from docetaxel. Review of Dr Longo plan for enzalutamide - Scheduled follow up at the Cancer Clinic on Monday06/10/17. - Palliative care consult for goals of care. does not want hospice. Protein calorie malnutrition. Present on admission. Active. - Nutrition consult. Debility, present on admission. Active. - 2nd to progression of metastatic process and chemo-therapy. - Physical therapy to see and offer suggestions. Atrial Fibrillation with rapid ventricular response. Present on admission, Controlled. Potential etiology includes underlying ischemia or side effect from chemotherapy. No evidence of any infection at this time - monitor on telemetry - PO Diltiazem 60 Q6H, Metoprolol 25 Tartrate BID. Elevated troponin with Coronary artery disease s/p PTCA. Present on admission. Resolved. Likely demand ischemia from tachycardia. Non ST elevation Myocardial infarction less likely. No signs of fluid overload but rather on the dry side - Troponin trended down. - Echo as above. Lactic acidosis. Present on admission. Resolved. Due to tissue ischemia Chronic anticoagulation with Coumadin No evidence of bleeding with INR 3.11 - Pharmacy to dose Coumadin Hypertension - resuming Amlodipine 5 mg daily and Losartan 100 mg daily Hyperlipidemia - presumed stable - continue Atorvastatin 20 mg daily - Acetaminophen as needed for mild pain/fever/headache - Bowel regimen as needed - Antiemetic as needed Social: Patient will likely require home health. [facility] residency clinic for primary care. Patient admitted under inpatient status with expected length of stay > 2 midnights for severity of present symptoms, complexities of treatment plan and risk for adverse event . Pain Evaluation: Adequate Pain Control VTE Prophylaxis: Other (already on Coumadin) Resuscitation Status: CPR: Attempt Resuscitation Time spent 35 minutes in patient assessment in care coordination Attending Statement I interviewed and examined the patient on rounds today. The patient is showing signs of advanced debility due to his prostate cancer and intolerance of recent chemotherapy. I believe that palliative consultation is appropriate this time. I agree with the assessment and plan as stated above. copies to: Patricia Dotson MD, COREY P DO Jun 05, 2017 14:14 Rasta Stacy MD Jun 05, 2017 19:12
--- NOTE | 2017-06-05 14:28 | NUR ---
spiritual care: palliative care Visited with pt and his family this afternoon. Pt will consider whether he would like to have Eucharistic visitation from the [employer]. Offered a blessing before leaving the room. Spiritual care is available if needed.
--- NOTE | 2017-06-05 14:50 | NUR ---
Evaluation completed. Please go to "Notes" then click on "Assessments and Notes" (bottom left corner of screen). Then select appropriate discipline tab on top of screen.
--- NOTE | 2017-06-05 18:46 | NUR ---
Tele/Emesis No reports of chest pain/pressure/discomfort. Tele SR 60s-70s with rare PVCs this AM. At approx 1500 patient switched to junctional rhythm with PACs, rate remained 60s-70s. Evening doses of PO metoprolol and cardizem withheld per MD orders. No reports of SOB, SPO2 on RA low to mid 90s. Denies cough. Reports mild nausea this AM, no abdominal pain. Very poor PO intake. Last BM three days ago, PO senna and miralax given, became increasingly nauseated, vomited brown emesis (senna given approx 1.5 hours prior to emesis).
[2017-06-06] VITALS (12 sets, daily range): BP systolic 107–136; BP diastolic 52–82; PULSE 63–84; RESP 14–16; O2SAT 80–97
[2017-06-06 04:10] LABS: INR 3.51 ratio
--- NOTE | 2017-06-06 05:40 | NUR ---
Hypotension / Cardizem / Tele / BM / Bedrest HS dose of Cardizem 30mg withheld r/t Hypotension and given later at around 0316. Nighttime does of Cardizem 90mgs withheld r/t hypotension. No c/o chest pain, Tele SB-SR with frequent PACs per Rope Cleaner, HR upper 50s to 70s. Pt requesting to use BSC vs Bedpan for BM tonight, and Pt did have a small soft BM. Pt is a 2 person max assist to BSC with FFW, Pt very weak and lightheaded and will remain on bedrest for the rest of the night. No N&V noted tonight.
[2017-06-06] MEDS: Diltiazem CD 240 mg ER24 Capsule PO SCH (10:05)
[2017-06-06] MEDS: Potassium Chloride 20 mEq SR Tablet PO SCH ×2 (10:05→19:37)
--- NOTE | 2017-06-06 15:19 | NUR ---
P: Syncope I: Pt states he is a little dizzy when up to C. HR this am 68 with BP 107/53. po Nabeel held and talked with and Nabeel changed. Noon VS HR 83 and BP 121/74. Voiding qs. Taking small meals and fluids ok. Afebrile. Room air sats stable 94%. Peripheral IV patent without redness or swelling at the site. Palliative meeting held. NSR. at bedside and updated on pt's condition and plan of care. E: Stable S: Uses call light appropriately. Frequent rounding.
--- NOTE | 2017-06-06 15:46 | PCM.PNPALL ---
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 He received 4 courses of chemotherapy under the care of Dr. Dotson. In the emergency department he was found to have atrial fibrillation with rapid ventricular rate, he was started on diltiazem drip which decreased his heart rate, and has been converted to oral antiarrhythmic medications and currently remains stable. -Symptom management (Pain/other): Pain described as controlled. Keep Tylenol available when necessary for pain. -DPOA/Advanced Directives/POLST: FULL CODE -Family/emotional support: Lives with , has 3 living children in the area including biological and stepchildren. One of his daughters, Rosy Rios, is a respiratory therapist here at [facility]. We have been given permission to discuss his health with the daughter. conveys that they have a lot of support from family and friends in the area. -Spiritual support: Spiritual needs were not evaluated at today's encounter. -Discussed with social work to evaluate if patient qualifies for home health, recommend nursing care 3 times a week for vital signs, medication help, nutritional needs, physical therapy 3 times a week, home health aide every other day for bathing and other self-care, social work evaluation at home to evaluate patient's qualifications and needs. -Patient requested a second opinion regarding his bone disease. We believe it would benefit the patient to have a discussion with Dr. Dotson regarding the extent of lauren involvement from his cancer. -Should follow-up as an outpatient with [id number] in [place], reevaluate hearing aid prescription and possible ear canal cleaning. -Avoid narcotic pain medications inpatient secondary to his wishes and possible deleterious effect of dizziness weakness and drowsiness. Acetaminophen has been working well, tramadol was given in the past with good results. Problems: End of Life Preferences Patient and conveyed that they wish to remain full code, "let them break the bones, so what" when discussing CPR. Patient did state that if after resuscitation he was unable to be completely revived him being alive on machines "just pulled a plug." Goals of Care At this point patient would like to try rehabilitation to get to a level of healthy was previous to this last 2 weeks of decline. If after discharge and a trial of home health he is unable to fully rehabilitate her's condition continues to get worse they will discuss palliative care and potentially hospice at that time. He does not want to be put on any pain medication "do not want painkiller that will come to hot me." Currently his pain is controlled with Tylenol when it is present. He requests a second opinion regarding his evaluations and test results in regards to the metastatic prostate cancer "bone weakness." Resuscitation Status Resuscitation Status: CPR: Attempt Resuscitation POLST Updates/Changes Previous POLST?: No Palliative Subjective Brief History From admission note 06/04/2017 "Albaro Toledo is an 87 year old male with a history of chronic cardiomyopathy, chronic atrial fibrillation on anticoagulation therapy, and metastatic Prostate cancer, with bone metastases, and previous MD s/p stent present to [facility] emergency department via EMS with dizziness that began at 1200 this afternoon. Associated symptoms include generalized weakness (significant change from baseline causing trouble walking and doing activities daily) and diaphoresis. He denies any chest pain or dyspnea or palpitations. His symptoms became worse as the day progressed and reported to have passed out briefly while walking at home. Patient denies any similar previous episodes. Symptoms seems to be related to the last chemotherapy regimen he had 6 weeks ago. He developed poor appetite and weakness and the chemotherapy (docetaxel) was stopped. He reported having a fever last week but denies any urinary symptoms or coughing. He denies any sick contact He is compliant with all his medications. " Since being in the hospital his pain is become under control, atrial fibrillation has been brought under control as no longer on calcium channel alexander drip and is able to take medications by mouth. Patient/Family Concerns Patient and the family are concerned for his weakness and dizziness, his ability to rehabilitate safely at home. Subjective Patient states he is doing a lot better today than he was yesterday, he is only receiving Tylenol for pain. He endorses some dizziness particularly when sitting up. Palliative Performance Scale PPS Patient Status: Current (at baseline patient is able to take care of himself, he typically walks from one room to another to sit down for long periods of time. They have admission patient was unable to hold himself up by standing or using his walker.) PPS Ambulation: Reduced PPS Self-Care: Occasional assistance necessary PPS Intake: Normal or reduced PPS Conscious Level: Full ADLs ADL Ambulation: Reduced ADL Dressing: Occasional assistance necessary ADL Feeding: Full ADL Hygene/bathing: Considerable assistance required ADL Transfers: Considerable assistance required Responsive Patient Symptoms Pain (current): Mild Pain (minimum): None Tiredness/Fatigue: Moderate Nausea: None Depression: None Anxiety: None Drowsiness/Sleepiness: Moderate Anorexia: Mild Shortness of Breath: None Objective Findings Exam Vital Sign - Last Date Time Temp Pulse Resp B/P Pulse Ox O2 Delivery O2 Flow Rate FiO2 06/06/17 06:00 75 16 122/62 96 Room Air 06/06/17 03:16 36.9 Intake and Output 06/05/17 06/05/17 06/06/17 Cumulative From/Thru 15:00 23:00 07:00 06/03/17 23:34 - 06/06/17 06:46 Intake Total 1221 ml 5377 ml Output Total 200 ml 1970 ml Balance 1021 ml 3407 ml Intake Oral 300 ml 890 ml IV Total 921 ml 4487 ml Output Urine Total 200 ml 1970 ml # Voids 1 1 # Bowel Movements 1 1 Objective General: Laying in bed, no apparent distress. Alert. HEENT: Normocephalic, atraumatic, EOMI grossly, No JVD, Mucous membranes moist. Decreased hearing bilaterally. Cardiovascular: Regular rate and rhythm, no clicks murmurs rubs, peripheral pulses 2/4 equal bilaterally Pulmonary: Clear to auscultation bilaterally, no W/R/R. Abdominal: Soft to palpation, bowel sounds present 4, no hepatosplenomegaly. Negative rebound. Extremities: No edema appreciated. No tenderness, asymmetry. MSK: Able to move extremities on their own volition, strength 5 out of 5 equal bilaterally to upper extremities. 3/5 LE hip and knee flexion. Psych: AOx3, Affect appropriate and congruent. Lab/Diagnostics Lab and Imaging results reviewed in detail in EMR. Patient/Family Conference Members Present Family Members Present Daughter and Discussion/Goals of Care Discussion FAMILY UNDERSTANDING OF DISEASE: The patient is able to demonstrate they know the anticipated course of the metastatic prostate cancer but he states that his bigger concern is the damage that has been done by the chemotherapy; he is adamant that he does not intend to have any more therapies. He and family are aware of the increased risks from recent cardiac events including pre-existing a -fib atrial fibrillation as well as the recommended therapies and there are no risks and side effects. DISEASE PROGRESSION/EVIDENCE OF DECLINE: Hospital admission was for uncontrolled atrial fibrillation which over the previous two weeks caused his progressive decline in vitality and increased weakness. In past 24 hours believe to be seeing improvement, as demonstrated by being able to fully flex hips and knees while supine. SYMPTOM BURDEN: Weakness was most debilitating but also states that loss of appetite and ability to taste has caused him some distress. Additionally distressed by dizziness with movement. GOALS: Want to be comfortable and re-habilitate "be built back up" to where he was before the weakness started 2 wks ago. HOPES/WORRIES: Hopes to be independent and go about daily routine including self care. Worries he will not regain his strength. FAMILY WISHES/VALUES: The patient is willing to be told truth about his illness, even if unpleasant? Yes. Does family want to know prognosis when it can be predicted, to better guide treatment decisions? Yes. What is quality of life for the patient: to be able to interact with their loved ones and friends, to travel, not to be bedbound, to be independent in taking care of themselves. Would patient choose quality of life over quantity of life? Quality of life. Would comfort care be more important than being awake and alert? Undetermined at this time. If patient is no longer alert and aware because of their illness, would you choose comfort for them? Yes. Patient stated if he was non-responsive to "just pull the plug." Palliative Care counselled: and daughter were present at discussion with patient, patient states he is not in any pain today, he is doing much better than yesterday, he did have 15 second episode of both of his ears burning and is unable to tell us exactly what he believes caused it, he was having symptoms of this prior to his hospitalization. When asked ultimately what his goals are he says he wants to go home and hope that his dizziness goes away. He is not ready to be placed on comfort care at this time and would like to address symptoms as they become present. He acknowledges that if anything drastic were to happen he would like to come to the hospital and be given full treatment. Discussing treatment of his metastatic prostate cancer he demonstrates frustration with chemotherapy stating he had zero symptoms before undergoing chemotherapy. The only problem he had was elevated PSA. He cites walking without a cane and being able to go about his daily life with his prior to undergoing the rounds of chemotherapy. In addition with his frustration he states he would like to have a second doctor take a fresh look at his images and reports. He stated "I am not going back there" in regards to the cancer center, "I've regretted [chemotherapy] ever since." His and him state that there are needs that he is unable to have fulfilled at home, stating, if he were to fall, which he denies doing so far, his would not be able to help him up. It would be nice to have help with exercises , therapy, and bathing as this is most difficult for the patient. His questions his and her ability to do so safely. When discussing discharge plan, if therapy was part of that plan they would need to have a professional come to their home and do this, again citing patients weakness and 's inability to help if he were to fall. If after several weeks to a month that is found he is not getting any better being "built back up" they would then like to discuss palliative and hospice care at that time. In discussing patient's comfort, patient says he does not want to be put on any painkillers as he believes that melissay would come to "haunt me" and he believes his hearing has gotten worse and his prescription for hearing aids is no longer adequate. Palliative care team with family and patient discussed the differences between palliative care, hospice, and home health. had misconceptions regarding what hospice care was and did and was open to hearing more about it, and had many questions and ultimately seemed open to discussing hospice care. Brochures and information packets were provided to patient and his regarding palliative care. Time spent Total time 30 minutes; >50% face to face with patient and/or family, providing counselling regarding plans and recommendations, and in care coordination with his/her medical teams. I also spent an additional 30 minutes counseling for advanced care planning with the patient/the patients family/the surrogate decision maker. Attending Statement The patient was seen and examined together with Dr. Ritchie on 06/06/17 and I have added additional/supplemental information to the note above. copies to: Patricia Dotson MD, Sharmon M. [facility] Jun 06, 2017 10:02 Bc Ritchie DO Jun 06, 2017 14:43
--- NOTE | 2017-06-06 15:51 | NUR ---
Social Work Note: Initial Assessment Data& Assessment: EMR reviewed. Pt discussed in multidisciplinary rounds today, per MD pt is not medically ready for discharge at this time. Albaro Toledo is a 87 year old male admitted on 06/04/2017 for RQAF, cyncope and hypotension. Pt has Medicare and AARP supplemental insurance coverage. Pt does not have a PCP listed at this time, order has been placed for pt to be set up at the [facility]. Per MD orders, SW met with pt at bedside to discuss home health preferences. Pt explained his had just left and he would prefer SW speak with her about home health. SW did provide pt with home health list and discharge planning checklist to review. SW spoke with pt via t/c to discharge discharge planning, SW role explained. Pt lives in [place] with his spouse in a one level home and is independent with ADL's at baseline. Pt uses a FWW and cane at baseline. Pt does not have SNF or HH hx. Pt does not have LTC insurance or VA benefits. Pt does not have DPOA/AD paperwork completed, SW to provide pt with a copy to bring home with him. Per palliative school childcare attendant, they met with pt and pt today at bedside to discuss goals of care. Per palliative care, pt would would like to stop chemo and go home with home health services in order to try and regain his strength and quality of life. Per MD order, VERENICE discussed home health preferences with pt , she does not have a preference and agreed to refer to whoever can see pt the soonest. SW left voicemail for [facility] with request to call back with schedules for the week. SW to refer to whichever agency can see pt in his home the soonest and notify pt of which company will be opening with them. Pt denies any other needs. No other discharge needs identified at this time. SW to continue to follow. Plan: Anticipated discharge home with home health RN, PT, [employer]EVELER and SW services when medically ready. SW to refer to whichever agency can see pt in his home the soonest and notify pt of which company will be opening with them. Pt denies any other needs. No other discharge needs identified at this time. SW to continue to follow. JEFFERSON Shelton Addendum: 06/06/17 at 1620 by BERNABE DEL ANGEL Amended: Links added.
--- NOTE | 2017-06-06 16:20 | NUR ---
Home Health Referral : Called and left message for Balbina Churchill at [facility] and asked what their open dates currently look like and asked for call back to [facility] cell phone. Updated EMPLOYEE DEVELOPMENT SPECIALIST
--- NOTE | 2017-06-06 17:32 | PCM.PNMED ---
Subjective Date of Service Jun 06, 2017 Subjective Albaro Toledo is an 87 year old male with a history of chronic cardiomyopathy , chronic atrial fibrillation on anticoagulation therapy, and metastatic Prostate cancer, with bone metastases, and previous OK s/p stent present to [facility] emergency department via EMS with dizziness that began at 1200 this afternoon. Overnight events: Patient slept well overnight with no issues. Patient reports feeling much better today than yesterday. He would like to go home. Palliative care discussed with family the need for home health services and if he requires a higher level of care then at that time will revisit hospice options. Patient expresses hope. He denies dizziness, chest pain, MATTA, nausea, vomiting, change in vision , abdominal pain, diarrhea. Exam Vital Signs Vital Sign - Last Date Time Temp Pulse Resp B/P Pulse Ox O2 Delivery O2 Flow Rate FiO2 06/06/17 06:00 75 16 122/62 96 Room Air 06/06/17 03:16 36.9 Intake and Output 06/05/17 06/05/17 06/06/17 Cumulative From/Thru 15:00 23:00 07:00 06/03/17 23:34 - 06/06/17 06:46 Intake Total 1221 ml 5377 ml Output Total 200 ml 1970 ml Balance 1021 ml 3407 ml Intake Oral 300 ml 890 ml IV Total 921 ml 4487 ml Output Urine Total 200 ml 1970 ml # Voids 1 1 # Bowel Movements 1 1 Exam General: Alert, Oriented X3, Cooperative, No acute Distress but looks weak Eyes: PERRLA, Scleral Anicteric Mouth: Mouth Normal, Mucous Membranes dry Neck: Supple, no Thyromegaly, trachea central. Chest & Lungs: Clear to auscultation & percussion, No adventitious breath sounds, no crackles, no wheeze Cardiovascular: Normal S1, Normal S2, No Murmurs/Rubs/Gallops, Regular Rate/ Rhythm, irregularly irregular rhythm (No JVD, no peripheral edema) Pulses: Radial (present and equal), Dorsalis Pedi (present and equal) Abdomen: Soft, Non-tender, Non-distended, Normoactive bowel tones. Musculoskeletal: Unremarkable. Normal range of motion, no swollen or erythematous joints Extremities: No edema, no cyanosis, no clubbing. Skin: No rashes. Warm and dry, no erythematous areas Neurological: Grossly neurologically intact, has generalized weakness, Normal Speech, Sensation Intact Lymphatic: Lymph nodes Cervical and Axillary not palpable. IVs and Medications Medications Reviewed: Medications were reviewed in detail Lab and Diagnostics Result Diagram: 06/04/17 3185 06/03/17 4006 Assessment & Plan Albaro Toledo is an 87 year old male with a history of chronic cardiomyopathy , chronic atrial fibrillation on anticoagulation therapy, and metastatic Prostate cancer, with bone metastases, and previous [place] s/p stent present to [facility] emergency department via EMS with dizziness. Metastatic castrate resistant prostate cancer, with bone metastases. Patient developed major toxicity from docetaxel. Review of Dr Longo plan for enzalutamide - [facility] on Monday[facility]/10/17. - Palliative care consult - Discussed home health and next step hospice if he requires a higher level of home care. Atrial Fibrillation with rapid ventricular response. Present on admission, Controlled. Potential etiology includes underlying ischemia or side effect from chemotherapy. No evidence of any infection at this time - monitor on telemetry - PO Diltiazem CD 240 today, will switch to 120 mg daily tomorrow. Following orthostatic BP's overnight to make final decision. Holding Metoprolol 25 Tartrate BID due to over blockade of node and junctional rhythms plus hypotension. Protein calorie malnutrition. Present on admission. Active. - Nutrition consult. Debility, present on admission. improving and active. - 2nd to progression of metastatic process and chemo-therapy. - Physical therapy to see and offer suggestions. Resolving issues. Elevated troponin with Coronary artery disease s/p PTCA. Present on admission. Resolved. Likely demand ischemia from tachycardia. Non ST elevation Myocardial infarction less likely. No signs of fluid overload but rather on the dry side - Troponin trended down. - Echo as above. Lactic acidosis. Present on admission. Resolved. Due to tissue ischemia Chronic anticoagulation with Coumadin No evidence of bleeding with INR 3.11 - Pharmacy to dose Coumadin Hypertension - resuming Amlodipine 5 mg daily and Losartan 100 mg daily Hyperlipidemia - presumed stable - continue Atorvastatin 20 mg daily - Acetaminophen as needed for mild pain/fever/headache - Bowel regimen as needed - Antiemetic as needed End of Life Preferences Patient and conveyed that they wish to remain full code, "let them break the bones, so what" when discussing CPR. Patient did state that if after resuscitation he was unable to be completely revived him being alive on machines "just pulled a plug." Goals of Care At this point patient would like to try rehabilitation to get to a level of healthy was previous to this last 2 weeks of decline. If after discharge and a trial of home health he is unable to fully rehabilitate her's condition continues to get worse they will discuss palliative care and potentially hospice at that time. He does not want to be put on any pain medication "do not want painkiller that will come to hot me." Currently his pain is controlled with Tylenol when it is present. He requests a second opinion regarding his evaluations and test results in regards to the metastatic prostate cancer "bone weakness." Social: Patient will likely require home health tomorrow 06/07/17. [facility] for primary care. Patient admitted under inpatient status with expected length of stay > 2 midnights for severity of present symptoms, complexities of treatment plan and risk for adverse event. . Pain Evaluation: Adequate Pain Control VTE Prophylaxis: Other (already on Coumadin) Resuscitation Status: CPR: Attempt Resuscitation Time spent 45 minutes spent in patient assessment in care coordination including reviewed dated with consultants. Attending Statement I interviewed and examined the patient on rounds today. Seems stronger today and likely for discharge on 06/07/17. I agree with the assessment and plan as stated above. SHANNAN KENDALL DO Jun 06, 2017 08:08 Rasta Stacy MD Jun 07, 2017 07:10
[2017-06-07] VITALS (7 sets, daily range): BP systolic 105–139; BP diastolic 61–82; PULSE 59–91; RESP 16–18; O2SAT 95–98
--- NOTE | 2017-06-07 06:08 | NUR ---
Comfort/Pain/Dizziness Patient reporting difficulty getting comfortable in bed overnight. Frequent assistance with position changes. PRN tylenol given at HS for back and neck pain with good result. Patient reporting neck stiffness with some position changes later in the night; heating pad and additional tylenol offered but patient stated he did not need them. Up to commode with two person assist once overnight; patient experienced some dizziness when sitting up and required heavy assistance to stand.
[2017-06-07] MEDS: Diltiazem CD 240 mg ER24 Capsule PO SCH (09:09)
[2017-06-07] MEDS: Potassium Chloride 20 mEq SR Tablet PO SCH (09:09)
[2017-06-07 10:41] LABS: INR 3.19 ratio
[2017-06-07] MEDS ORDERED: 0.9% Sodium Chloride 250 ML IV PRN (10:45)
--- NOTE | 2017-06-07 12:42 | NUR ---
Social Work-readiness for discharge: Data:EMR Reviewed. Pt is on day 3 of hospitalization for ANAHY per H&P. Pt is likely medically stable later today or tomorrow. SW spoke with both HH companies and they are both able to see pt on Monday. SW followed up with pt and at bedside, SW role explained. Pt and agreeable to HH, SW informed them both companies can start pt on Monday. Pt and have no agency preference. SW referred to the rotating calendar and made referral to [facility] for RN and HHA. [facility] to complete F2F. SW will continue to follow. Assessment:Pt who would benefit from HH. Plan:Pt to discharge home when medically stable via POV. Referral made to [facility] RN and HHA. [facility] to complete F2F. SW will continue to follow. JEFFERSON Zelaya
--- NOTE | 2017-06-07 12:51 | PCM.PALLBR ---
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 He has been converted to oral antiarrhythmic medications and currently is requesting discharge. -Symptom management (Pain/other): Pain described as controlled. Keep Tylenol available when necessary for pain. --Discussed with patient and family the results of his bone scans which showed worsening and extensive bony mets, this being reiterated in a more recent chest CT. Explained that what he has been calling "arthritic" right hip pain is most likely, metastatic bone pain. We discussed his continued adamant decision to forego further treatment for his prostate cancer. -DPOA/Advanced Directives/POLST: FULL CODE -Family/emotional support: Lives with , has 3 living children in the area including biological and stepchildren. One of his daughters, Rosy Rios, is a respiratory therapist here at [facility]. We have been given permission to discuss his health with the daughter. conveys that they have a lot of support from family and friends in the area. -Spiritual support: Spiritual needs were not evaluated at today's encounter. -Discussed with social work to evaluate if patient qualifies for home health, recommend nursing care 3 times a week for vital signs, medication help, nutritional needs, home health aide every other day for bathing and other self- care, social work evaluation at home to evaluate patient's qualifications and needs. -Patient now understands his bone disease. HE and family understand this will mean increasing support needed and that patient will likely be bedbound. -Avoid narcotic pain medications inpatient secondary to his wishes and possible deleterious effect of dizziness weakness and drowsiness. Acetaminophen has been working well, tramadol was given in the past with good results. --recent GI bleed makes NSAIDS a poor choice Problems: End of Life Preferences Patient and conveyed that they continue wish to remain full code for now, but the patient sees the increased futility. He wants to wait to discuss with his family before changing his mind about this. Patient did state that if after resuscitation he was unable to be completely revived him being alive on machines "just pull the plug. Goals of Care At this point patient would like to try rehabilitation to get to a level of healthy was previous to this last 2 weeks of decline. If after discharge and a trial of home health he is unable to fully rehabilitate her's condition continues to get worse they will discuss palliative care and potentially hospice at that time. He does not want to be put on any pain medication "do not want painkiller that will come to hot me." Currently his pain is controlled with Tylenol when it is present. He requests a second opinion regarding his evaluations and test results in regards to the metastatic prostate cancer "bone weakness. Resuscitation Status Resuscitation Status: CPR: Attempt Resuscitation POLST Updates/Changes Previous POLST?: No Antibiotics: Use ABX if can Prolong Life . Advanced Care Planning Address: Code status change Pain: Moderate (worse at times to moderate level in right hip) Symptom management: Pain Total time 40 minutes; >50% face to face with patient and/or family, providing counselling regarding plans and recommendations, and in care coordination with his/her medical teams. I also spent an additional 30 minutes counseling for advanced care planning with the patient/the patients family/the surrogate decision maker. copies to: Patricia Dotson MD Palliative Brief Note Date of Service Jun 07, 2017 . D/w Dr. Dotson this morning. Shared information about treatment plan, that patient had improvement both with rate control and with stopping his statin, which may well have been causing muscle pain and weakness. He understands that the patient feels he has had an unacceptable degree of toxicity with chemotherapy/ Taxotere. They have an appt this coming Monday to discuss enzalutamide. hospitalization is Patient continues to feel weak with minimal appetite. His son-in-law is with him through breakfast, then his and daughter joined us to discuss his increased risk of fractures with physical therapy. Family now agrees to home with home nursing and FRACTIONATION SUPERVISOR but no PT. Marlen Contreras Jun 07, 2017 12:51
--- NOTE | 2017-06-07 13:27 | NUR ---
Blood Tx One unit PRB infusing - started at 1315. The pt is A&Ox3 with VSS
[2017-06-07] MEDS ORDERED: DILT240C85 PO (16:15)
--- NOTE | 2017-06-07 16:17 | PCM.DIMED ---
Discharge Instructions Date of Service Jun 07, 2017 Dates of Hospitalization Jun 04, 2017 at 01:26 Discharge Diagnosis Discharge Diagnosis Metastatic castrate resistant prostate cancer, with bone metastases. Atrial Fibrillation with rapid ventricular response. Present on admission, Controlled. Protein calorie malnutrition. Present on admission. Active. Debility, present on admission. improving and active. Acute normocytic Anemia, present on admission. Stable. Resolving issues. Elevated troponin with Coronary artery disease s/p PTCA. Present on admission. Resolved. Lactic acidosis. Present on admission. Resolved. Chronic anticoagulation with Coumadin Hypertension Hyperlipidemia Medication Instructions Additional med instructions Stop your Amlodipine, losartan, metoprolol and simvastatin. Start 240 mg Diltiazem CD Daily. Diet Discharge Diet: No restrictions Call your provider Call your provider for: Bleeding, Chest pain Patient Instructions Patient Instructions Try rehabilitation to get to a level of healthy was previous to this last 2 weeks of decline. If after discharge and a trial of home health he is unable to fully rehabilitate her's condition continues to get worse they will discuss palliative care and potentially hospice at that time. Scheduled appointment Monday06/09/[address] Dotson. - He understands that the patient feels he has had an unacceptable degree of toxicity with chemotherapy/ Taxotere. They have an appt this coming Monday to discuss enzalutamide. Follow-up plan Home with home health, Home RN services, and Home Bath aid. Palliative care outpatient and social work assistance. Follow-up Provider: Patricia Dotson MD Follow-up with PCP in: 1 week (Scheduled appointment Monday06/09/2017) Provider: [facility] Follow-up in: 2 weeks (Follow up in 2-3 weeks. ) SHANNAN KEDNALL DO Jun 07, 2017 16:13
--- NOTE | 2017-06-07 16:56 | NUR ---
Social Work: Discharge Data: Pt is on day 3 of hospitalization. EMR reviewed, D/C orders are in. completed F2F, DRYING SUPERVISOR gave it to Anna . No further d/c planning needs at this time. DRYING SUPERVISOR will continue to follow if needs arise. Assessment: Pt from home with his , in need of HH. Plan: Pt will d/c home today via POV with [facility] for RN, CONCRETE SWIMMING POOL INSTALLER, and DRYING SUPERVISOR. No further d/c planning needs at this time. DRYING SUPERVISOR will continue to follow if needs arise. JEFFERSON Terrazas
--- NOTE | 2017-06-07 17:17 | NUR ---
Discharge The pt left the unit at 1715 with all his belongings and his packet of discharge paperwork. The pt is being transported home via private vehicle with his . The pt and his family verbalized understanding of all discharge teaching including all new scripts and follow up appointment info. The pt left the unit A&Ox3 with VSS.
--- NOTE | 2017-06-09 16:01 | PCM.DC.MED ---
Discharge Summary Date of Service Jun 09, 2017 Dates of Hospitalization Date of Hospital Admission Jun 04, 2017 at 01:26 Date of Discharge: Jun 07, 2017 Providers: Admitting Physician: Gaurav Lanier MD Primary Care Physician: Edgard Attending Physician: Rasta Stacy MD Diagnosis at Time of Discharge Diagnosis at Time of Discharge Metastatic castrate resistant prostate cancer, with bone metastases. Atrial Fibrillation with rapid ventricular response. Present on admission, Controlled. Protein calorie malnutrition. Present on admission. Active. Debility, present on admission. improving and active. Acute normocytic Anemia, present on admission. Stable. Resolving issues. Elevated troponin with Coronary artery disease s/p PTCA. Present on admission. Resolved. Lactic acidosis. Present on admission. Resolved. Chronic anticoagulation with Coumadin Hypertension Hyperlipidemia Brief History Albaro Toledo is an 87 year old male with a history of chronic cardiomyopathy , chronic atrial fibrillation on anticoagulation therapy, and metastatic Prostate cancer, with bone metastases and no desire to continue chemo therapy treatment, and previous VA s/p stent present to [facility] emergency department via EMS with dizziness and near syncope. Associated symptoms include generalized weakness (significant change from baseline causing trouble walking and doing activities daily) and diaphoresis. He denies any chest pain or dyspnea or palpitations. His symptoms became worse as the day progressed and reported to have passed out briefly while walking at home. Patient denies any similar previous episodes. Symptoms seems to be related to the last chemotherapy regimen he had 6 weeks ago. He developed poor appetite and weakness and the chemotherapy (docetaxel) was stopped. He reported having a fever last week but denies any urinary symptoms or coughing. He denies any sick contact Patient was treated with IV fluids and withheld his antihypertensives. We encouraged increased activity and PO nutritional intake. Patient reports feeling much better and would like to go home. Palliative care discussed with family the need for home health services and if he requires a higher level of care then at that time will revisit hospice options. Patient expresses hope. He denies dizziness, chest pain, MATTA, nausea, vomiting, change in vision , abdominal pain, diarrhea. Patient was discharged in stable condition with recommendations to follow up and establish a primary care physician at [facility] residency clinics, as well as his scheduled appointment with his oncologist Dr. Dotson. Hospital Course Albaro Toledo is an 87 year old male with a history of chronic cardiomyopathy , chronic atrial fibrillation on anticoagulation therapy, and metastatic Prostate cancer, with bone metastases, and previous VA s/p stent present to [facility] emergency department via EMS with dizziness. Metastatic castrate resistant prostate cancer, with bone metastases. Patient developed major toxicity from docetaxel. Review of Dr Longo plan for enzalutamide - Scheduled follow up at the [facility] on Monday06/10/17. - Palliative care consult - Discussed home health and next step hospice if he requires a higher level of home care. Atrial Fibrillation with rapid ventricular response. Present on admission, Controlled. Potential etiology includes underlying ischemia or side effect from chemotherapy. No evidence of any infection at this time - monitor on telemetry - PO Diltiazem CD 240 today, will switch to 120 mg daily tomorrow. Following orthostatic BP's overnight to make final decision. Holding Metoprolol 25 Tartrate BID due to over blockade of node and junctional rhythms plus hypotension. Protein calorie malnutrition. Present on admission. Active. - Nutrition consult. Debility, present on admission. improving and active. - 2nd to progression of metastatic process and chemo-therapy. - Physical therapy to see and offer suggestions. Resolving issues. Elevated troponin with Coronary artery disease s/p PTCA. Present on admission. Resolved. Likely demand ischemia from tachycardia. Non ST elevation Myocardial infarction less likely. No signs of fluid overload but rather on the dry side - Troponin trended down. - Echo as above. Lactic acidosis. Present on admission. Resolved. Due to tissue ischemia Chronic anticoagulation with Coumadin No evidence of bleeding with INR 3.11 - Pharmacy to dose Coumadin Hypertension - resuming Amlodipine 5 mg daily and Losartan 100 mg daily Hyperlipidemia - presumed stable - continue Atorvastatin 20 mg daily - Acetaminophen as needed for mild pain/fever/headache - Bowel regimen as needed - Antiemetic as needed End of Life Preferences Patient and conveyed that they wish to remain full code, "let them break the bones, so what" when discussing CPR. Patient did state that if after resuscitation he was unable to be completely revived him being alive on machines "just pulled a plug." Goals of Care At this point patient would like to try rehabilitation to get to a level of healthy was previous to this last 2 weeks of decline. If after discharge and a trial of home health he is unable to fully rehabilitate her's condition continues to get worse they will discuss palliative care and potentially hospice at that time. He does not want to be put on any pain medication "do not want painkiller that will come to hot me." Currently his pain is controlled with Tylenol when it is present. He requests a second opinion regarding his evaluations and test results in regards to the metastatic prostate cancer "bone weakness." Social: Patient will likely require home health tomorrow 06/07/17. [facility] residency clinic for primary care. Patient admitted under inpatient status with expected length of stay > 2 midnights for severity of present symptoms, complexities of treatment plan and risk for adverse event. . Exam Vital Signs (Last) Date Time Temp Pulse Resp B/P Pulse Ox O2 Delivery O2 Flow Rate FiO2 06/07/17 14:09 37.0 62 18 128/67 06/07/17 13:20 96 Room Air Exam General: Alert, Oriented X3, Cooperative, No acute Distress but looks weak Eyes: PERRLA, Scleral Anicteric Mouth: Mouth Normal, Mucous Membranes dry Neck: Supple, no Thyromegaly, trachea central. Chest & Lungs: Clear to auscultation & percussion, No adventitious breath sounds, no crackles, no wheeze Cardiovascular: Normal S1, Normal S2, No Murmurs/Rubs/Gallops, Regular Rate/ Rhythm, irregularly irregular rhythm (No JVD, no peripheral edema) Pulses: Radial (present and equal), Dorsalis Pedi (present and equal) Abdomen: Soft, Non-tender, Non-distended, Normoactive bowel tones. Musculoskeletal: Unremarkable. Normal range of motion, no swollen or erythematous joints Extremities: No edema, no cyanosis, no clubbing. Skin: No rashes. Warm and dry, no erythematous areas Neurological: Grossly neurologically intact, has generalized weakness, Normal Speech, Sensation Intact Lymphatic: Lymph nodes Cervical and Axillary not palpable. Test 06/03/17 23:55 06/04/17 03:45 06/04/17 11:30 06/04/17 14:50 Neutrophils (%) (Auto) 64.9% (40-74) Lymphocytes (%) (Auto) 21.0% (14-46) Monocytes (%) (Auto) 11.0% (4-12) Eosinophils (%) (Auto) 0.6% (0-5) Basophils (%) (Auto) 0.2% (0-3) Activated Partial Thromboplast Time 50.2sec (22.8-33.0) D-Dimer 12.98mg/L FEU (<0.50) Sodium Level 137mEq/L (134-144) Potassium Level 3.5mEq/L (3.5-5.2) Chloride Level 97mEq/L (97-108) Carbon Dioxide Level 18mmol/L (18-29) Blood Urea Nitrogen 14mg/dL (8-27) Creatinine 0.79mg/dL (0.76-1.27) Estimat Glomerular Filtration Rate 99mL/min (>59) Glucose Level 159mg/dL (60-99) Calcium Level 8.3mg/dL (8.5-10.1) Magnesium Level 1.9mg/dL (1.6-2.6) Total Bilirubin 0.6mg/dL (0.0-1.2) Aspartate Amino Transf (AST/SGOT) 92U/L (0-50) Alanine Aminotransferase (ALT/SGPT) 8U/L (0-44) Alkaline Phosphatase 2080U/L (25-160) Pro-B-Type Natriuretic Peptide 3148pg/mL (0-486) Total Protein 5.5g/dL (6.4-8.4) Albumin 2.7g/dL (3.4-5.0) White Blood Count 7.1th/mm3 (3.8-10.1) Red Blood Count 2.80mil/mm3 (4.40-5.80) Mean Corpuscular Volume 85.0fL (81-100) Mean Corpuscular Hemoglobin 26.8pg (27.0-35.0) Mean Corpuscular Hemoglobin Concent 31.5% (32.0-37.0) Red Cell Distribution Width 22.2% (12.3-15.4) Platelet Count 110bil/L (150-400) Lactic Acid Level 1.8mmol/L (0.4-2.0) Troponin T 0.012ug/L (0.0-0.011) Test 06/04/17 22:32 06/07/17 10:16 Urine Color Yellow (YELLOW) Urine Appearance Clear (CLEAR,HAZY) Urine pH 5.0 (5.0-8.0) Urine Specific [place] 1.020 (1.003-1.035) Urine Protein Tracemg/dL (NEG,TRACE) Urine Glucose (UA) Negativemg/dL (NEGATIVE) Urine Ketones Negativemg/dL (NEGATIVE) Urine Occult Blood Negative (NEGATIVE) Urine Nitrite Negative (NEGATIVE) Urine Bilirubin Negative (NEGATIVE) Urine Urobilinogen Normalmg/dL (NORMAL) Urine Leukocyte Esterase Negative (NEGATIVE) Urine RBC 0-2/hpf (0-2) Urine WBC 0-5/hpf (0-5) Urine Epithelial Cells Occasional/hpf (NONE-MOD) Urine Crystals None seen (NONE SEEN) Urine Bacteria Few/hpf (NONE-FEW) Urine Hyaline Casts None/lpf (NONE) Urine Granular Casts Occasional (NONE SEEN) Urine Waxy Casts None seen (NONE SEEN) Urine Red Blood Cell Casts None seen (NONE SEEN) Urine White Blood Cell Casts None seen (NONE SEEN) Urine Mucus Present (None Seen) Urine Trichomonas None seen (NONE SEEN) Urine Yeast None (NONE SEEN) Urinalysis Comment None Urine Culture Reflexed Not indicated Hemoglobin 7.5g/dL (13.8-17.2) Hematocrit 24.0% (41.0-50.0) Prothrombin Time 35.0sec (8.1-12.5) Prothromb Time International Ratio 3.19ratio Discharge Medications Discharge Medications Ascorbic Acid (Vitamin C) 1,000 Mg Tab.chew 1,000 MG PO DAILY (Reported) Diltiazem ER (Cardizem CD) 240 Mg Cap.er.24h 240 MG PO DAILY Prescribed by: SHANNAN KENDALL DO Ubidecarenone (Co Q-10) 100 Mg Capsule 100 MG PO DAILY (Reported) Warfarin Sodium (Warfarin Sodium) 2.5 Mg Tablet 2.5 MG PO MON,WED,FRI (Reported ) Warfarin Sodium (Warfarin Sodium) 2.5 Mg Tablet 1.25 MG PO ,,MON,MON ( Reported) Additional med instructions Stop your Amlodipine, losartan, metoprolol and simvastatin. Start 240 mg Diltiazem CD Daily. Followup Plan Follow-up plan Home with home health, Home RN services, and Home Bath aid. Palliative care outpatient and social work assistance. Discharge Diet: No restrictions Patient Instructions Try rehabilitation to get to a level of healthy was previous to this last 2 weeks of decline. If after discharge and a trial of home health he is unable to fully rehabilitate her's condition continues to get worse they will discuss palliative care and potentially hospice at that time. Scheduled appointment Monday06/09/[address] Dotson. - He understands that the patient feels he has had an unacceptable degree of toxicity with chemotherapy/ Taxotere. They have an appt this coming Monday to discuss enzalutamide. Follow-up Provider: Patricia Dotson MD Follow-up with PCP in: 1 week (Scheduled appointment Monday06/09/2017) Provider: [facility] Follow-up in: 2 weeks (Follow up in 2-3 weeks. ) Time spent > 35 mins. copies to: Patricia Dotson MD; [facility] SHANNAN KENDALL DO Jun 09, 2017 16:01
--- NOTE | 2017-06-11 14:37 | DRSVH ---
[facility] [address] [place] [address] Echocardiogram Report Name: NIRAJ CLARK Study Date: 06/11/2017 Height: 70 in Hospital Exam Location: [facility] Weight: 159 lb Gender: Male BSA: 1.9 m2 : 1930 Age: 87 yrs BP: 128/67 mm Hg Reason For Study: Dyspnea Ordering Physician: HOSPITALIST [facility] Performed By: Chel Shore Referring Physician: Anthony Sahni Interpretation Summary The left ventricle is normal in size. The ejection fraction is estimated to be 55-60%. The right ventricle is normal size. The right ventricular systolic function is normal. There is mild mitral regurgitation. Compared to the prior echo study, there has been an increase in the severity of mitral regurgitation. There is a moderate to large pericardial effusion noted (Patient has chonically moderate to large pericardial effusion seen in 10/2014 echo as well. In this study, there appears to be mild worsening anterior to right ventricle. Based on right ventricle contractility pattern, there is some evidence of increased intrapericardial pressure, however, do not see classical tamponade pattern. IVC is not dilated. doppler profile across the david valve do not support tamponade.. BP: 128/67 mmHg. The IVC is of normal diameter and collapses greater than 50% with a sniff. This suggests a low right atrial pressure of 3 mm Hg. There are moderate-sized bilateral pleural effusions noted (New). Procedure: There has been no significant change since the previous study. The study quality was technically adequate. Comparison is made with the echocardiogram of 10/20/2014. The patient was in normal sinus rhythm during the exam. Left Ventricle: The left ventricle is normal in size. There is mild concentric left ventricular hypertrophy. There is no thrombus. The ejection fraction is estimated to be 55-60%. There has been no significant change since the previous study. There is a mild dyssynchronous contraction pattern, consistent with a conduction abnormality. Assessment of diastolic parameters indicates a relaxation abnormality of the left ventricle, consistent with normal filling pressures. Right Ventricle: The right ventricle is normal size. The right ventricular systolic function is normal. Atria: The left atrial size is normal. The left atrium has mildly decreased in size since the prior echo exam. The right atrium is mildly dilated. The interatrial septum is intact with no evidence for an atrial septal defect. Mitral Valve: The mitral valve leaflets appear borderline thickened, but open well. There is mild mitral annular calcification. The mitral valve chordae are thickened and/or calcified. There is mild mitral regurgitation. Compared to the prior echo study, there has been an increase in the severity of mitral regurgitation. Aortic Valve: The aortic valve is trileaflet. The aortic valve opens well. There is no aortic valve stenosis. No aortic regurgitation is present. Tricuspid Valve: The tricuspid valve is normal in structure and function. There is trace tricuspid regurgitation. The right ventricular systolic pressure is estimated at 30 mmHg assuming a right atrial pressure of 3 mm Hg. Pulmonic Valve: The pulmonic valve is not well seen, but is grossly normal. There is trace pulmonic regurgitation. Great Vessels: The aortic root is normal size. The ascending aorta could not be visualized. The IVC is of normal diameter and collapses greater than 50% with a sniff. This suggests a low right atrial pressure of 3 mm Hg. Pericardium/ Pleura There is a moderate to large pericardial effusion noted. There are moderate-sized bilateral pleural effusions noted. MMode/2D Measurements & Calculations LVIDd: 5.7 cm RA long axis LVOT diam LVIDs: 4.4 cm LA A2 area: 18.4 cm : 2.3 cm FS: 21.3 % LA A4 area: 18.4 cm RA area IVSd: 1.0 cm LA length (vol): 4.8 cm LVPWd: 1.1 cm LA vol: 59.6 ml : 16.7 cm RA vol: 46.4 ml LA vol index: 31.5 ml/m2RA : 24.5 mm2 LV fischer. diameter/BSA LV sys. diameter/BSA TAPSE: 2.3 cm (cm/m^2): 3.0 (cm/m^2): 2.3 Doppler Measurements & Calculations Ao V2 max MV E max erasto MV E/A: 0.66 TR max erasto: 258.0 cm/sec : 110.8 cm/sec : 49.8 cm/sec TR max P.6 mmHg Ao max PG MV A max erasto : 4.9 mmHg : 75.2 cm/sec Ao mean PG LVOT Max Erasto : 94.0 cm/sec IGNACIO(I,D): 3.4 cm sev ratio MV dec time Ao V2 mean LV V1 max PG IGNACIO indexed to BSA : 0.22 sec : 82.9 cm/sec (cm^2/m^2): 1.8 Ao V2 VTI: 24.1 cmLV V1 VTI : 19.1 cm IGNACIO(V,D): 3.7 cm2 Reading Physician:MATTY
== END 2017-06-07 17:22 | disposition home health service (06) | DRG 309 ==
LOC: SED 23:28 → PCC 06-04 01:26
PROVIDERS: ADMIT Hospitalist; ATTEND Internal Medicine
PROC: 30233N1 Transfusion of Nonautologous Red Blood Cells into Peripheral Vein, Percutaneous Approach (ICD-10-PCS; principal; 2017-06-07)
DX: I48.91 Unspecified atrial fibrillation (principal); C78.7 Secondary malignant neoplasm of liver and intrahepatic bile duct; C79.51 Secondary malignant neoplasm of bone; I24.8 Other forms of acute ischemic heart disease; E87.2 Acidosis; E46 Unspecified protein-calorie malnutrition; Z79.01 Long term (current) use of anticoagulants; D64.9 Anemia, unspecified; C61 Malignant neoplasm of prostate; Z68.22 Body mass index [BMI] 22.0-22.9, adult; R53.81 Other malaise; T45.1X5A Adverse effect of antineoplastic and immunosuppressive drugs, initial encounter; I25.2 Old myocardial infarction; Z95.5 Presence of coronary angioplasty implant and graft; Z92.21 Personal history of antineoplastic chemotherapy; Z87.891 Personal history of nicotine dependence; I10 Essential (primary) hypertension; E78.5 Hyperlipidemia, unspecified; Z51.5 Encounter for palliative care

== ENCOUNTER 2017-06-10 09:29 | Inpatient (IN) | payer MEDICARE ==
[2017-06-10] VITALS (8 sets, daily range): BP systolic 119–131; BP diastolic 61–76; PULSE 75–82; RESP 18–24; O2SAT 97–100
[~2017-06-10] VITALS: Ht 180.3 cm; Wt 69.2 kg
[~2017-06-10 09:29] MED LIST changes: -AMLO10TA3 PO; +DILT240C85 PO; -LOSA50TA37 PO; -METO25TA6 PO; -SIMV80TA4 PO
--- NOTE | 2017-06-10 10:02 | ED.REPORT ---
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 The patient was recently admitted to [facility] from June 04 - June 08 after presenting to the ED with symptoms of dizziness, near-syncope, generalized weakness, and diaphoresis. He was diagnosed with major toxicity from docetaxel and his oncologist Dr. Dotson planned to start him to enzalutamide. The patient decided that he did not want further chemotherapy treatment after being discharged. Additional diagnoses included a-fib w/ RvR, protein calorie malnutrition, lactic acidosis due to tissue ischemia. He states the day after being discharged he has been experiencing shortness of breath which he describes as needing to take deep breaths to remain conscious. He has also been experiencing orthopnea and paroxysmal nocturnal dyspnea. He He states these symptoms cause him dizziness and generalized weakness. Pt denies CP, change in chronic cough. He experienced similar symptoms prior to his admission. He has no history of PE. CTA chest 06/04/17 interpreted as below: 1. No evidence for central pulmonary embolism. 2. Moderate bilateral dependent mobile pleural effusions are new since December 2016, of uncertain etiology. 3. Moderate chronic circumferential pericardial effusion persists. 4. Multiple hepatic and splenic simple cysts as before. 5. Interval increased degree of bilateral adrenal gland thickening, consistent with hyperplasia. 6. Moderate bilateral gynecomastia as before may be secondary to medication side effects. 7. Widespread sclerotic bony metastases from prostate carcinoma. Nursing Notes Stated Complaint: DIFFICULTY BREATHING Chief Complaint: Respiratory Distress Nursing Notes Reviewed: Yes Allergies: Coded Allergies: No Known Allergies (Verified , 04/20/04) Scheduled Diltiazem ER (Cardizem CD) 240 Mg Cap.er.24h 240 MG PO DAILY Ubidecarenone (Co Q-10) 100 Mg Capsule 100 MG PO DAILY Warfarin Sodium (Warfarin Sodium) 2.5 Mg Tablet 2.5 MG PO MON,WED,MON Warfarin Sodium (Warfarin Sodium) 2.5 Mg Tablet 1.25 MG PO ,,MON,MON Miscellaneous Medications Ascorbic Acid/Ascorbate Sodium (Vitamin C 500 mg Wafer) 500 Mg Wafer 1,000 MG PO General Time Seen by MD: 09:45 Chief Complaint Shortness of breath Hx Obtained From: Patient Arrived By: Walk-in Sudden in Onset?: No Onset Occurred: Yesterday Symptom Duration: Since onset Severity: Current: No pain currently Severity: Maximum: No pain Recent Healthcare: Recent doctor visit, Recent hospitalization, Recent testing , Previous diagnosis, Prior workup Similar Sx Previous: Yes Past Medical History Past Medical History Notes: Oncologist: Mauri Past Medical History Paroxysmal Atrial fibrillation on anticoagulations Metastatic castrate resistant prostate cancer, with bone metastases. history of sinus bradycardia Coronary artery disease s/p PTCA Hypertension Pericardial effusion Hyperlipidemia Protein calorie malnutrition Past Surgical History Cardiac stent Smoking History Former Smoker Social History Other Social History: Local resident Ambulatory Status Independent Review of Systems Constitutional: Reports: Weakness - generalized, Denies: Fever Respiratory: Reports: Parox nocturnal dyspnea, Shortness of breath, Denies: Non-productive cough Cardiovascular: Reports: Orthopnea, Parox nocturnal dyspnea, Denies: Chest pain Complete sys rev & neg: except as marked. Neurologic: Reports: Dizziness, Lightheaded Physical Exam Initial Vital Signs Vital Signs (First) Date Time Temp Pulse Resp B/P Pulse Ox O2 Delivery O2 Flow Rate FiO2 06/10/17 09:44 36.3 81 24 128/62 97 06/10/17 10:32 Room Air Initial VS: Reviewed, Vital signs normal Head / Eyes: Atraumatic, Normocephalic, PERRL ENT: Mucous membranes moist, Conjunctiva normal, No scleral icterus Abdomen / GI: Soft, Non-tender Extremities: Vascular intact, Neuro intact, No swelling Skin: Warm, Dry, No cyanosis Neurologic: Alert, Oriented, Nonfocal Psychiatric: Mood/affect normal, Behavior normal, Normal thought content General/Constitutional: Awake, Alert, No acute distress, Cooperative, Not toxic appearing Neck: Atraumatic, Supple, No meningismus, Full range of motion Respiratory / Chest: Breath sounds NL, Breath sounds = bilat, No respiratory distress, No rales, No rhonchi, No wheezing, No retractions, No stridor Cardiovascular: Heart rate NL, Regular rhythm, Heart sounds NL, No murmurs Interpretation & Diagnostics Lab Results Interpretation Result Diagram: 06/10/17 1000 06/10/17 1000 Test 06/10/17 10:00 White Blood Count 6.2th/mm3 (3.8-10.1) Red Blood Count 3.90mil/mm3 (4.40-5.80) Hemoglobin 10.4g/dL (13.8-17.2) Hematocrit 32.2% (41.0-50.0) Mean Corpuscular Volume 82.6fL (81-100) Mean Corpuscular Hemoglobin 26.7pg (27.0-35.0) Mean Corpuscular Hemoglobin Concent 32.3% (32.0-37.0) Red Cell Distribution Width 21.0% (12.3-15.4) Platelet Count 108bil/L (150-400) Neutrophils (%) (Auto) 62.9% (40-74) Lymphocytes (%) (Auto) 25.8% (14-46) Monocytes (%) (Auto) 6.8% (4-12) Eosinophils (%) (Auto) 0.8% (0-5) Basophils (%) (Auto) 0.3% (0-3) Prothrombin Time 43.2sec (8.1-12.5) Prothromb Time International Ratio 3.93ratio Sodium Level 132mEq/L (134-144) Potassium Level 3.7mEq/L (3.5-5.2) Chloride Level 96mEq/L (97-108) Carbon Dioxide Level 19mmol/L (18-29) Blood Urea Nitrogen 10mg/dL (8-27) Creatinine 0.71mg/dL (0.76-1.27) Estimat Glomerular Filtration Rate 112mL/min (>59) Glucose Level 88mg/dL (60-99) Lactic Acid Level 1.6mmol/L (0.4-2.0) Calcium Level 8.0mg/dL (8.5-10.1) Total Bilirubin 0.5mg/dL (0.0-1.2) Aspartate Amino Transf (AST/SGOT) 25U/L (0-50) Alanine Aminotransferase (ALT/SGPT) 8U/L (0-44) Alkaline Phosphatase 2004U/L (25-160) Troponin T 0.010ug/L (0.0-0.011) Pro-B-Type Natriuretic Peptide 2347pg/mL (0-486) Total Protein 5.5g/dL (6.4-8.4) Albumin 2.4g/dL (3.4-5.0) Procalcitonin 0.19ng/mL (0.00-0.08) Hold Jimenes Top Tube Received (Received) ECG Interpretation ECG Interpretation: Sinus rhythm rate 79 Inverted T waves V1-V6 Q waves V1 and V2 T wave inversions appear to be unchanged from prior Time: 10:16 Interpreted by: ED physician X-Ray Chest Interpretation Chest Xray Interpretation: IMPRESSION: Left mid and lower lung pneumonia, possible slight pulmonary edema, possible slight medial right lung base pneumonia also. Extensive osteoblastic metastatic disease again noted. Dictated by: Bethel Trinh M.D. on 06/10/2017 at 10:35 Approved by: Bethel Trinh M.D. on 06/10/2017 at 10:37 View: Portable, 1 view Interpretation / Wet Read by: Interpret - Radiologist Re-Eval/Medical Decision Med Decision/Clinical Course 87-year-old male history of prostate cancer with bony metastases with recent hospitalization for dizziness, near syncope presenting with progressive dyspnea. X-rays suggest left side pneumonia. His white blood cell count is normal. He does have an elevated BNP. His oxygen is within normal limits. Patient will be admitted for healthcare associated pneumonia. There is likely a CHF component. Patient did have bilateral pleural effusions on previous admission which are likely contributing. Of note, patient has decided for no further chemotherapy and is unaware that his diagnosis is therefore terminal. However he does request full code. Patient will be admitted to hospital. Broad spectrum antibiotics given. Source of Hx: Old records Re-Evaluation/Progress : Time of Eval: 11:30 Re-Evaluation/Progress Note: Pt rechecked. Discussed imaging and lab results. Discussed admission vs discharge. He would like to be admitted. Code status discussed. He would like to remain FULL CODE. Consultation : Referral / Consult Name: Liza Donis MD Consulted With: Hospitalist Call Returned at: 11:56 Retort Loader: Will see patient, Agrees with eval, Agrees with plan, Accepts admit Counseled Regarding: Diagnosis, Lab results, Need for admission Discharge & Departure Impression: Primary Impression: Hospital-acquired pneumonia Additional Impressions: Shortness of breath Prostate cancer metastatic to bone Supratherapeutic INR Disposition: ADMITTED TO HOSPITAL Discharge Condition All VS Reviewed: Yes Condition: Stable Referrals: NOPCP (PCP) Patricia Dotson MD Scribe Attestation Portions of this note were transcribed by Noel Gaines. I, Dr. Garcia personally performed the history, physical exam and medical decision-making; I reviewed and confirmed the accuracy of the information in the transcribed note. copies to: Patricia Dotson MD, Ben M MD Jun 10, 2017 10:02 NOEL GAINES Jun 10, 2017 10:07
[2017-06-10] MEDS ORDERED: ASCO500W7 PO (10:34)
[2017-06-10 10:39] LABS: INR 3.93 ratio; TROPONIN T 0.01 ug/L (0.0-0.011)
--- NOTE | 2017-06-10 10:39 | DRSVH ---
PROCEDURE: X-RAY CHEST ONE VIEW, PORTABLE ([id number]) INDICATIONS: Shortness of breath TECHNIQUE: One view of the chest was acquired. COMPARISON: [facility], [place], [place] BONE SCAN WHOLE BODY, 12/29/2016, 12:58. [facility], CR, XR CHEST 1VW (PORTABLE), 06/03/2017, 23:47. [facility], CR, XR CHEST 2VW, 02/05, 11:23. FINDINGS: Surgical changes and devices: None. Lungs and pleura: No pleural effusions or pneumothorax. Lungs are abnormal with what appears to be a mild pulmonary edema pattern and also left mid and lower lung pneumonia. There may be a slight deg ree of pneumonia the right lung base. Mediastinum: Mediastinal contours appear normal. Heart size is normal. Bones and chest wall: Previously present extensive suspicious bony lesions indicate presence of exten sive metastatic disease, osteoblastic. Overlying soft tissues appear unremarkable. IMPRESSION: Left mid and lower lung pneumonia, possible slight pulmonary edema, possible slight media l right lung base pneumonia also. Extensive osteoblastic metastatic disease again noted. Dictated by: Bethel Trinh M.D. on 06/10/2017 at 10:35 Approved by: Bethel Trinh M.D. on 06/10/2017 at 10:37
[2017-06-10 10:56] LABS: Mean Corpuscular Hemoglobin 26.7 pg (27.0-35.0); Mean Corpuscular Volume 82.6 fL (81-100)
[2017-06-10 10:57] LABS: BASOPHILS % (AUTO) 0.3 % (0-3); EOSINOPHILS % (AUTO) 0.8 % (0-5); MONOCYTES % (AUTO) 6.8 % (4-12); NEUTROPHILS % (AUTO) 62.9 % (40-74); Platelet Count 108 bil/L (150-400)
[2017-06-10] MEDS ORDERED: levoFLOXacin Inj 750 MG in IV Premix 1 EACH IV ONE (11:35)
[2017-06-10] MEDS ORDERED: Piperacillin-Tazo 3.375 Gm Inj 3.375 GM in Dextrose 5% Minibag Plus 50 ML IV ONE (11:35)
[2017-06-10] MEDS ORDERED: Vancomycin Dose per Pharmacist XX ONE (11:35)
[2017-06-10] MEDS ORDERED: Diltiazem CD 240 mg ER24 Capsule PO ONE (11:40)
[2017-06-10] MEDS ORDERED: Vancomycin Inj 1,500 MG in 0.9% Sodium Chloride 500 ML IV ONE (11:50)
[2017-06-10] MEDS ORDERED: Ondansetron 2 mg/mL 2 mL Inj IVPUSH PRN ×2 (12:00→12:30)
[2017-06-10] MEDS ORDERED: Alum-Mag Hydrox-Simeth 30 mL Suspension PO PRN ×2 (12:00→12:30)
--- NOTE | 2017-06-10 13:30 | PCM.HPMED ---
Subjective Date of Service Jun 10, 2017 Primary Provider: Admitting Physician: Liza Donis MD Primary Care Physician: Nopmarjan Attending Physician: Liza Donis MD Admit Status: From the Emergency Department, Full Admit, Admit to [facility], Remote Telemetry Chief Complaint: Persistent dizziness and dyspnea History of Present Illness: This is an 87-year-old male who has a history of metastatic prostate carcinoma to bones. 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 Patient notes these symptoms have been ongoing for the past 2 months. He soon after developing the symptoms have requested that he come off of his chemotherapy and this was done. However he notes no improvement in the symptoms. His dizziness is more of a lightheadedness. He notes that it is not necessarily positional. It can happen when he sitting. He did have a CT of chest on June 04 which was interpreted as no evidence for central pulmonary emboli, moderate bilateral dependent mobile pleural effusions which were new since December 2016 of uncertain etiology. He also has moderate chronic circumferential pericardial effusion. He also was seen widespread sclerotic bony metastases from prostate carcinoma. He was also admitted here from June 04 to June 07 with similar symptoms but was found to be atrial fibrillation with rapid ventricular response. He denies any chest pain. Denies any fevers chills. Denies cough. Per discharge summary from last visit patient was treated with IV fluids, atrial fibrillation was rate controlled, his antihypertensives were withheld. Patient was encouraged at increasing activity and by mouth nutritional intake and reportedly patient was feeling much better and was sent home. Date of discharge was June 07. Review of Systems: Denies any diarrhea but does admit to chronic constipation. Denies any nausea or vomiting. All other review of systems are reviewed and are negative except for as in history of present illness. Allergies Coded Allergies: No Known Allergies (Verified , 04/20/04) Home Medications Scheduled Diltiazem ER (Cardizem CD) 240 Mg Cap.er.24h 240 MG PO DAILY Ubidecarenone (Co Q-10) 100 Mg Capsule 100 MG PO DAILY Warfarin Sodium (Warfarin Sodium) 2.5 Mg Tablet 2.5 MG PO MON,WED,MON Warfarin Sodium (Warfarin Sodium) 2.5 Mg Tablet 1.25 MG PO ,,MON,MON Miscellaneous Medications Ascorbic Acid/Ascorbate Sodium (Vitamin C 500 mg Wafer) 500 Mg Wafer 1,000 MG PO PMH Past Medical History Past Medical History Notes: Oncologist: Mauri Past Medical History Paroxysmal Atrial fibrillation on anticoagulations Metastatic castrate resistant prostate cancer, with bone metastases. history of sinus bradycardia Coronary artery disease s/p PTCA Hypertension Pericardial effusion Hyperlipidemia Protein calorie malnutrition Past Surgical History Family History Family History Mother of unknown cancer 78 Brother has coronary artery disease Social History Hx Alcohol Use: Yes Hx Substance Use: No Hx Tobacco Use: Yes Smoking Status: Former Smoker Living Arrangement: with Family Exam Vital Signs Vital Sign - Last Date Time Temp Pulse Resp B/P Pulse Ox O2 Delivery O2 Flow Rate FiO2 06/10/17 12:43 36.3 78 18 125/67 100 Room Air Exam Constitutional: Elderly male in no acute distress Head: Normocephalic atraumatic Chest: Decreased breath sounds at his bases some crackles at his left base Cor: Regular rate and rhythm S1-S2 without murmur Abdomen: Soft nontender bowel sounds present Extremities: Trace left ankle edema however patient notes that his chronic otherwise no pedal edema noted Skin: No rashes Psych: Mood and affect are appropriate Neuro: Alert and oriented 3, motor strength is intact bilaterally Lab and Diagnostics Labs Laboratory Tests 72 Hours Test 06/10/17 10:00 White Blood Count 6.2th/mm3 (3.8-10.1) Red Blood Count 3.90mil/mm3 (4.40-5.80) Hemoglobin 10.4g/dL (13.8-17.2) Hematocrit 32.2% (41.0-50.0) Mean Corpuscular Volume 82.6fL (81-100) Mean Corpuscular Hemoglobin 26.7pg (27.0-35.0) Mean Corpuscular Hemoglobin Concent 32.3% (32.0-37.0) Red Cell Distribution Width 21.0% (12.3-15.4) Platelet Count 108bil/L (150-400) Neutrophils (%) (Auto) 62.9% (40-74) Lymphocytes (%) (Auto) 25.8% (14-46) Monocytes (%) (Auto) 6.8% (4-12) Eosinophils (%) (Auto) 0.8% (0-5) Basophils (%) (Auto) 0.3% (0-3) Prothrombin Time 43.2sec (8.1-12.5) Prothromb Time International Ratio 3.93ratio Sodium Level 132mEq/L (134-144) Potassium Level 3.7mEq/L (3.5-5.2) Chloride Level 96mEq/L (97-108) Carbon Dioxide Level 19mmol/L (18-29) Blood Urea Nitrogen 10mg/dL (8-27) Creatinine 0.71mg/dL (0.76-1.27) Estimat Glomerular Filtration Rate 112mL/min (>59) Glucose Level 88mg/dL (60-99) Calcium Level 8.0mg/dL (8.5-10.1) Total Bilirubin 0.5mg/dL (0.0-1.2) Aspartate Amino Transf (AST/SGOT) 25U/L (0-50) Alanine Aminotransferase (ALT/SGPT) 8U/L (0-44) Alkaline Phosphatase 2004U/L (25-160) Troponin T 0.010ug/L (0.0-0.011) Pro-B-Type Natriuretic Peptide 2347pg/mL (0-486) Total Protein 5.5g/dL (6.4-8.4) Albumin 2.4g/dL (3.4-5.0) Procalcitonin 0.19ng/mL (0.00-0.08) Hold Jimenes Top Tube Received (Received) Result Diagram: 06/10/17 1000 06/10/17 1000 X-Rays, CTs and MRIs PROCEDURE: X-RAY CHEST ONE VIEW, PORTABLE ([id number]) INDICATIONS: Shortness of breath TECHNIQUE: One view of the chest was acquired. COMPARISON: [facility], [place], [place] BONE SCAN WHOLE BODY, 12/29/2016, 12: 58. [facility], CR, XR CHEST 1VW (PORTABLE), 06/03/2017, 23:47. [facility], CR, XR CHEST 2VW, 03/01/2017, 11:23. FINDINGS: Surgical changes and devices: None. Lungs and pleura: No pleural effusions or pneumothorax. Lungs are abnormal with what appears to be a mild pulmonary edema pattern and also left mid and lower lung pneumonia. There may be a slight degree of pneumonia the right lung base. Mediastinum: Mediastinal contours appear normal. Heart size is normal. Bones and chest wall: Previously present extensive suspicious bony lesions indicate presence of extensive metastatic disease, osteoblastic. Overlying soft tissues appear unremarkable. IMPRESSION: Left mid and lower lung pneumonia, possible slight pulmonary edema, possible slight medial right lung base pneumonia also. Extensive osteoblastic metastatic disease again noted. Dictated by: Bethel Trinh M.D. on 06/10/2017 at 10:35 Approved by: Bethel Trinh M.D. on 06/10/2017 at 10:37 12-lead ECG According to ER MD and EKG image is not available to me at the time of this dictation: Sinus rhythm rate of 79 and her T waves V1 to V6 Q waves V1 and V2 T- wave inversions. Unchanged from prior. Assessment & Plan #Persistent dizziness/lightheadedness 2 months, present on admission -Worse since recent discharge and unclear etiology he currently is rate controlled upon admission here -By history is not positional. -We will proceed with MRI of brain with and without contrast. Last check was in December. -Also check echocardiogram -May also be related to his dyspnea symptomatology -Check venous blood gas #Dyspnea, subacute, present on admission -Appears to be pneumonic infiltrate in the left lower lobe which will further elucidate with CT scan of chest without contrast -Check venous blood gas #History of atrial fibrillation, chronic, present on admission -Continue his Coumadin therapy to be managed by pharmacy -Placed on telemetry -Check echocardiogram #Possible healthcare associated pneumonia, acute, present on admission -Check CT of chest as noted above -Check sputum PCR and sputum studies -Blood cultures obtained in the ER -Continue with IV vancomycin and IV Zosyn. -Check nasal MRSA screen -Pro calcitonin is elevated but white count is normal and patient is afebrile we will monitor clinically 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, chronic, present on admission -Patient does not want any more chemotherapy at this point in time due to significant side effects -Alkaline phosphatase has been fairly stable but elevated #DVT prophylaxis -Patient is on therapeutic Coumadin and will continue #CODE STATUS -Did discuss with patient and family and is full code Pain Evaluation: Adequate Pain Control VTE Prophylaxis: Theraputic Anticoag with Warfarin, SCDs Resuscitation Status: CPR: Attempt Resuscitation Time spent 60 minutes Liza Donsi MD Jun 10, 2017 13:30
[2017-06-10] MEDS: Vancomycin Dose per Pharmacist XX SCH (13:45)
--- NOTE | 2017-06-10 14:14 | NUR ---
Admit: Patient arrived to [facility] via wheelchair @ approx 1400. Turn and pivoted to bed w/1PA. Denies pain and shortness of breath. Complaint of severe dizziness and weakness. Alert & oriented. Oriented to room and call light system. Bed in low and locked position, bed rails up x2, [place] alarm in place, non-skid socks on for safety. SR 80 per telecom assistant.
[2017-06-10] MEDS ORDERED: 0.9% Sodium Chloride 250 ML ONE ×2 (14:19→23:57)
--- NOTE | 2017-06-10 15:03 | DRSVH ---
PROCEDURE: MRI BRAIN WITH AND WITHOUT CONTRAST ([id number]) INDICATIONS: dizziness x 2 months TECHNIQUE: Noncontrast axial T1 spin echo, axial T2 fast spin echo, sagittal and axial FLAIR, coronal T2 fast sp in echo, axial gradient echo, axial diffusion and ADC through the brain. After the administration of contrast, axial and coronal 3D VIBE or T1 spin echo with fat saturation through the brain. COMPARISON: [facility], MR, MR BRAIN W&WO CON, 12/29/2016, 12:09. [facility] , [place], [place] BONE SCAN WHOLE BODY, 12/29/2016, 12:58. FINDINGS: Image quality: Excellent. CSF Spaces: Basal cisterns are patent. No extra-axial fluid collections. Ventricles are normal in size and shape. Brain: No midline shift. No intracranial bleeds or masses. No abnormal intracranial enhancement. The brainstem appears normal. Diffusion-weighted images demonstrate no acute ischemic insults. No c hronic ischemic insults. Normal intravascular flow voids are present. Note is made of stable appeari ng susceptibility artifact at the brainstem/cerebellar junction at the low posterior cranial fossa on the left, best seen centered on series 8 and 9 images 13. A mass or evidence of vascular malformati on in this area is not seen on postcontrast imaging. This has not changed from initial MR from . Skull and face: Calvarial marrow is normal in signal but at the skull base the clivus and medial Pet дмитрий bones, left greater than right, show heterogeneous elevated contrast enhancement potentially repr esenting metastatic disease without identifiable mass effect in those areas (for example, see series 12 image 21. Orbits appear normal. Sinuses: Sinuses and mastoids appear clear except for relatively prominent bilateral mastoid air maia l fluid signal, right greater than left, and somewhat worsened on the left when compared to the 12/23 MRI. IMPRESSION: 1. Mastoid air cell opacification is quite prominent in this patient, right greater than left, and h as mildly worsened from 12/29/16 on the left. It is possible that mastoiditis may relate to the clini kristie history of dizziness over several months. 2. Mild microvascular atherosclerotic change in the deep white matter of each hemisphere. No brain parenchymal mass or area of stroke or hemorrhage is found. 3. There is a small area of susceptibility artifact at the posterior cranial fossa at the junction o f the medullary portion of the brainstem and the cerebellum. The contrast enhanced portion of the st udy does not show a vascular malformation at this site. A small thrombosed chronic venous angioma mi ght explain that appearance. This is positioned near the origin of the seventh and eighth cranial ne rves on the left, but has not changed from December of this year and reportedly the dizziness symptom atology has been present for 2 months (from information provided to the MR technologist). 4. The patient carries a history of prostate carcinoma, and there is no visualized evidence of metas tatic disease to the brain parenchyma or meningeal surfaces. However, there is marrow contrast enhan cement seen at the clivus and at the medial Kesha ridges bilaterally, left greater than right, and n [facility] bone scan from December of this year has documented extensive osseous metastatic dise ase including potentially extending cephalad into the skull base. Dictated by: Bethel Trinh M.D. on 06/10/2017 at 14:45 Approved by: Bethel Trinh M.D. on 06/10/2017 at 15:02
--- NOTE | 2017-06-10 15:44 | ABG ---
DateTimeAnalyzed 15:35:00 -_ pH ____7.442 - pCO2 ___32.4__ -mmHg pO2 ___25.7__ -mmHg HCO3- ___21.8__ -mmol/L ABE ___-1.4__ -mmol/L tHb ____9.1__ -g/dL O2Hb ___40.0__ -% COHb ____2.0__ -% MetHb ____0.6__ -% sO2 ___41.1__ -% FIO2 ___28.0__ -% Drawn By __[facility] - Date/Time Notified____ 15:43:00 -_ Liter_Flow ____2.0__ -L/min Oxygen Device 1 nasal cannula - Notified By lw - Notified Whom ___Dr. Kubisty - B 755 -mmHg tO2 ____5.2__ -Vol% Elías test N/A -
--- NOTE | 2017-06-10 17:23 | PCM.CONPHA ---
Subjective Date of Service: Jun 10, 2017 Vancomycin dosing Reason for Pharmacy Consult: Vancomycin Dosing Assessment/Plan Assessment/Plan Patient is an 87 y.o. male receiving vancomycin for pneumonia. Concurrent abx include: levofloxacin and zosyn. WBC count is 6.2 and the patient is afebrile. Patient is 68 kg, 71inches tall with a SCr of 0.71 mg/dL-- estimated CrCl of 70 mL/min. Based on patient parameters vancomycin will be dosed at 750mg q12h with a target trough of 15-20 mcg/mL. Trough will be drawn prior to the 5th dose on 06/12 @ 1145. Pharmacy will follow daily and adjust as appropriate. Thank you for the consult in the care of this patient. RWJuan Joy PharmD Jun 10, 2017 17:22
[2017-06-10] MEDS: Piperacillin-Tazo 3.375 Gm Inj 3.375 GM in Dextrose 5% Minibag Plus 50 ML IV SCH (17:25)
--- NOTE | 2017-06-10 17:25 | PCM.CONPHA ---
Subjective Date of Service: Jun 10, 2017 Warfarin dosing Reason for Pharmacy Consult: Anticoagulation Management Assessment/Plan Assessment/Plan Indication: Afib Home Dose: 2.5 MO,WE,FR / 1.25MG AOD Anticoagulation Trends: INR 3.93 INR change Warf Dose HOLD GOAL INR: 2-3 Summary: INR is supratherapeutic. Warfarin dose will be held today and pharmacy will reevaluate tomorrow with AM labs. Pharmacy will continue to follow daily. Thank you for consulting pharmacy in the care of this patient. Juan Ayoub Jun 10, 2017 17:25
--- NOTE | 2017-06-10 18:10 | NUR ---
Off Unit: Patient transported of unit to CT via bed accompanied by detail technician @ approx 1800. technical maintenance technician notified. No apparent distress noted at time of discharge.
--- NOTE | 2017-06-10 18:49 | DRSVH ---
PROCEDURE: CT CHEST WITHOUT CONTRAST ([id number]) INDICATIONS: dyspnea TECHNIQUE: Noncontrast 5 mm thick sections acquired from the pulmonary apices to the posterior costophrenic angl es. 7 mm thick coronal and sagittal MIP reformats were then acquired. For radiation dose reduction, the following was used: automated exposure control, adjustment of mA and/or kV according to patient size. COMPARISON: None. FINDINGS: Image quality: Excellent. Lungs and pleura: No acute air space opacities that would suggest presence of pneumonia or metastati c disease but there is mild increased atelectasis at each lung base. There has been a small interval increase in the left pleural effusion but no definite change in the right pleural effusion from , and no interval development of pneumothorax. Central and peripheral airways are patent and ebenezer l in caliber. Mediastinum: Heart size is at the upper limits of normal. A significant change has occurred at the p ericardium with a new significant pericardial effusion, measuring up to almost 3 cm in maximal AP dim ension (series 2 image 48). No mediastinal adenopathy by size criteria. Thoracic aorta and central pulmonary arteries are normal in size. Esophagus is normal in caliber. No hiatal hernia. 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 No vertebral body co mpression fractures. No axillary or supraclavicular adenopathy by size criteria. Thyroid gland is i s not well-visualized by this noncontrast CT. Abdomen: Visualized upper abdominal solid organs and bowel loops appear normal in the absence of con trast. IMPRESSION: Significant short term interval increase in size of a pericardial effusion now large anastasia suring up to almost 3 cm in maximal AP dimension. Restriction of normal cardiac function may be asso ciated. No definite interval increase in right pleural effusion, small interval increase in left pleural effu felipe. 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 Dictated by: Bethel Trinh M.D. on 06/10/2017 at 18:40 Approved by: Bethel Trinh M.D. on 06/10/2017 at 18:47
[2017-06-10 19:47] LABS: APPEARANCE,URINE CLEAR (CLEAR,HAZY); COLOR,URINE YELLOW (YELLOW); OCCULT BLOOD,URINE NEGATIVE (NEGATIVE); PH,URINE 5.5 (5.0-8.0); UROBILINOGEN,URINE NORMAL (NORMAL)
[2017-06-10] MEDS: Vancomycin Inj 750 MG in 0.9% Sodium Chloride 250 ML IV SCH (23:56)
[2017-06-11] VITALS (8 sets, daily range): BP systolic 112–128; BP diastolic 64–74; PULSE 59–80; RESP 18–20; O2SAT 95–97
[2017-06-11] MEDS: Piperacillin-Tazo 3.375 Gm Inj 3.375 GM in Dextrose 5% Minibag Plus 50 ML IV SCH ×2 (00:04→07:54)
--- NOTE | 2017-06-11 03:45 | NUR ---
NOC activity Observed significant SOB with activity. Auscultation noted left lower lobe decreased in air movement, moist and wet. Saturation of 97% on RA. Denies chest pain, n/v or abd discomfort. Pt's VSS and has been afebrile. Continuing to monitor.
[2017-06-11 06:05] LABS: Mean Corpuscular Volume 83.9 fL (81-100)
[2017-06-11 06:06] LABS: BASOPHILS % (AUTO) 0.4 % (0-3); EOSINOPHILS % (AUTO) 0.8 % (0-5); MONOCYTES % (AUTO) 7.3 % (4-12); Mean Corpuscular Hemoglobin 26.8 pg (27.0-35.0); NEUTROPHILS % (AUTO) 64.7 % (40-74); Platelet Count 91 bil/L (150-400)
[2017-06-11 06:22] LABS: INR 4.92 ratio
--- NOTE | 2017-06-11 08:08 | PCM.PHAPRO ---
Progress Date of Service: Jun 11, 2017 Requesting Provider: Liza Donis MD Warfarin dosing warfarin dosing per AFib Date Jun 11-Jun INR 3.93 4.92 INR change 0.99 Warf Dose HOLD hold Doron Murphy [facility] Jun 11, 2017 08:08
[2017-06-11] MEDS ORDERED: Diltiazem CD 240 mg ER24 Capsule PO SCH (08:30)
[2017-06-11] MEDS: Vancomycin Dose per Pharmacist XX SCH (08:30)
[2017-06-11] MEDS: Vancomycin Inj 750 MG in 0.9% Sodium Chloride 250 ML IV SCH (12:15)
--- NOTE | 2017-06-11 12:36 | NUR ---
Pain: Patient complained of left upper leg pain 6/10 on pain scale. Tylenol administered, K-pad in place. On reassessment, patient states pain has decreased to 5/10. Will continue to follow.
--- NOTE | 2017-06-11 13:51 | PCM.PNMED ---
Subjective Date of Service Jun 11, 2017 Subjective Patient notes no change in current symptoms. is at bedside and does give some history regarding the patient over the past few months at least having some issues with sleeping she will find him having episodes of not breathing and then gasping for air. He does have problems with insomnia also and will sleep for a few minutes and then be awake. There is possibility that he actually wakes himself up with these apneic periods. He has no history of obstructive sleep apnea. denies that he snores when this occurs. Exam Vital Signs Vital Sign - Last Date Time Temp Pulse Resp B/P Pulse Ox O2 Delivery O2 Flow Rate FiO2 06/11/17 13:33 36.3 59 18 112/64 95 Room Air 06/10/17 14:14 2.50 Intake and Output 06/10/17 06/10/17 06/11/17 Cumulative From/Thru 15:00 23:00 07:00 06/10/17 09:44 - 06/11/17 06:20 Intake Total 758 ml 300 ml 1058 ml Output Total 550 ml 550 ml Balance 758 ml -250 ml 508 ml Intake Oral 400 ml 300 ml 700 ml IV Total 358 ml 358 ml Output Urine Total 550 ml 550 ml # Bowel Movements 0 0 Exam Constitutional: Elderly male in no acute distress sitting in bed Head: Normocephalic atraumatic Chest: Decreased breath sounds at his bases Abdomen: Soft nontender bowel sounds present Extremities: No pedal edema Neuro: Alert and oriented 3, motor strength is intact bilaterally Lab and Diagnostics Laboratory Tests 72 Hours Test 06/10/17 10:00 06/10/17 19:23 06/11/17 05:25 White Blood Count 6.2th/mm3 (3.8-10.1) 5.1th/mm3 (3.8-10.1) Red Blood Count 3.90mil/mm3 (4.40-5.80) 3.10mil/mm3 (4.40-5.80) Hemoglobin 10.4g/dL (13.8-17.2) 8.3g/dL (13.8-17.2) Hematocrit 32.2% (41.0-50.0) 26.0% (41.0-50.0) Mean Corpuscular Volume 82.6fL (81-100) 83.9fL (81-100) Mean Corpuscular Hemoglobin 26.7pg (27.0-35.0) 26.8pg (27.0-35.0) Mean Corpuscular Hemoglobin Concent 32.3% (32.0-37.0) 31.9% (32.0-37.0) Red Cell Distribution Width 21.0% (12.3-15.4) 20.9% (12.3-15.4) Platelet Count 108bil/L (150-400) 91bil/L (150-400) Neutrophils (%) (Auto) 62.9% (40-74) 64.7% (40-74) Lymphocytes (%) (Auto) 25.8% (14-46) 22.9% (14-46) Monocytes (%) (Auto) 6.8% (4-12) 7.3% (4-12) Eosinophils (%) (Auto) 0.8% (0-5) 0.8% (0-5) Basophils (%) (Auto) 0.3% (0-3) 0.4% (0-3) Prothrombin Time 43.2sec (8.1-12.5) 54.4sec (8.1-12.5) Prothromb Time International Ratio 3.93ratio 4.92ratio Sodium Level 132mEq/L (134-144) 135mEq/L (134-144) Potassium Level 3.7mEq/L (3.5-5.2) 3.6mEq/L (3.5-5.2) Chloride Level 96mEq/L (97-108) 101mEq/L (97-108) Carbon Dioxide Level 19mmol/L (18-29) 17mmol/L (18-29) Blood Urea Nitrogen 10mg/dL (8-27) 12mg/dL (8-27) Creatinine 0.71mg/dL (0.76-1.27) 0.70mg/dL (0.76-1.27) Estimat Glomerular Filtration Rate 112mL/min (>59) 114mL/min (>59) Glucose Level 88mg/dL (60-99) 76mg/dL (60-99) Lactic Acid Level 1.6mmol/L (0.4-2.0) Calcium Level 8.0mg/dL (8.5-10.1) 7.3mg/dL (8.5-10.1) Total Bilirubin 0.5mg/dL (0.0-1.2) 0.5mg/dL (0.0-1.2) Aspartate Amino Transf (AST/SGOT) 25U/L (0-50) 35U/L (0-50) Alanine Aminotransferase (ALT/SGPT) 8U/L (0-44) 8U/L (0-44) Alkaline Phosphatase 2004U/L (25-160) 1670U/L (25-160) Troponin T 0.010ug/L (0.0-0.011) Pro-B-Type Natriuretic Peptide 2347pg/mL (0-486) Total Protein 5.5g/dL (6.4-8.4) 4.1g/dL (6.4-8.4) Albumin 2.4g/dL (3.4-5.0) 2.2g/dL (3.4-5.0) Procalcitonin 0.19ng/mL (0.00-0.08) Hold Jimenes Top Tube Received (Received) Urine Color Yellow (YELLOW) Urine Appearance Clear (CLEAR,HAZY) Urine pH 5.5 (5.0-8.0) Urine Specific [place] 1.010 (1.003-1.035) Urine Protein Negativemg/dL (NEG,TRACE) Urine Glucose (UA) Negativemg/dL (NEGATIVE) Urine Ketones Negativemg/dL (NEGATIVE) Urine Occult Blood Negative (NEGATIVE) Urine Nitrite Negative (NEGATIVE) Urine Bilirubin Negative (NEGATIVE) Urine Urobilinogen Normalmg/dL (NORMAL) Urine Leukocyte Esterase Negative (NEGATIVE) Urine RBC 0-2/hpf (0-2) Urine WBC 0-5/hpf (0-5) Urine Epithelial Cells Few/hpf (NONE-MOD) Urine Crystals None seen (NONE SEEN) Urine Bacteria Few/hpf (NONE-FEW) Urine Hyaline Casts None/lpf (NONE) Urine Granular Casts None seen (NONE SEEN) Urine Waxy Casts None seen (NONE SEEN) Urine Red Blood Cell Casts None seen (NONE SEEN) Urine White Blood Cell Casts None seen (NONE SEEN) Urine Mucus Present (None Seen) Urine Trichomonas None seen (NONE SEEN) Urine Yeast None (NONE SEEN) Urinalysis Comment None Urine Culture Reflexed Not indicated Band Neutrophils % 4% (1-5) Result Diagram: 06/11/1752406/11/17524 X-Rays, CTs and MRIs PROCEDURE: X-RAY CHEST ONE VIEW, PORTABLE ([id number]) INDICATIONS: Shortness of breath TECHNIQUE: One view of the chest was acquired. COMPARISON: [facility], [place], [place] BONE SCAN WHOLE BODY, 12/29/2016, 12: 58. [facility], [place], XR CHEST 1VW (PORTABLE), 06/03/2017, 23:47. [facility], CR, XR CHEST 2VW, 03/01/2017, 11:23. FINDINGS: Surgical changes and devices: None. Lungs and pleura: No pleural effusions or pneumothorax. Lungs are abnormal with what appears to be a mild pulmonary edema pattern and also left mid and lower lung pneumonia. There may be a slight degree of pneumonia the right lung base. Mediastinum: Mediastinal contours appear normal. Heart size is normal. Bones and chest wall: Previously present extensive suspicious bony lesions indicate presence of extensive metastatic disease, osteoblastic. Overlying soft tissues appear unremarkable. IMPRESSION: Left mid and lower lung pneumonia, possible slight pulmonary edema, possible slight medial right lung base pneumonia also. Extensive osteoblastic metastatic disease again noted. Dictated by: Bethel Trinh M.D. on 06/10/2017 at 10:35 Approved by: Bethel Trinh M.D. on 06/10/2017 at 10:37 PROCEDURE: CT CHEST WITHOUT CONTRAST ([id number]) INDICATIONS: dyspnea TECHNIQUE: Noncontrast 5 mm thick sections acquired from the pulmonary apices to the posterior costophrenic angles. 7 mm thick coronal and sagittal MIP reformats were then acquired. For radiation dose reduction, the following was used: automated exposure control, adjustment of mA and/or kV according to patient size. COMPARISON: None. FINDINGS: Image quality: Excellent. Lungs and pleura: No acute air space opacities that would suggest presence of pneumonia or metastatic disease but there is mild increased atelectasis at each lung base. There has been a small interval increase in the left pleural effusion but no definite change in the right pleural effusion from 06/04/17, and no interval development of pneumothorax. Central and peripheral airways are patent and normal in caliber. Mediastinum: Heart size is at the upper limits of normal. A significant change has occurred at the pericardium with a new significant pericardial effusion, measuring up to almost 3 cm in maximal AP dimension (series 2 image 48). No mediastinal adenopathy by size criteria. Thoracic aorta and central pulmonary arteries are normal in size. Esophagus is normal in caliber. No hiatal hernia. 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 No vertebral body compression fractures. No axillary or supraclavicular adenopathy by size criteria. Thyroid gland is is not well-visualized by this noncontrast CT. Abdomen: Visualized upper abdominal solid organs and bowel loops appear normal in the absence of contrast. IMPRESSION: Significant short term interval increase in size of a pericardial effusion now large measuring up to almost 3 cm in maximal AP dimension. Restriction of normal cardiac function may be associated. No definite interval increase in right pleural effusion, small interval increase in left pleural effusion. 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 Dictated by: Bethel Trinh M.D. on 06/10/2017 at 18:40 Approved by: Bethel Trinh M.D. on 06/10/2017 at 18:47 PROCEDURE: MRI BRAIN WITH AND WITHOUT CONTRAST ([id number]) INDICATIONS: dizziness x 2 months TECHNIQUE: Noncontrast axial T1 spin echo, axial T2 fast spin echo, sagittal and axial FLAIR, coronal T2 fast spin echo, axial gradient echo, axial diffusion and ADC through the brain. After the administration of contrast, axial and coronal 3D VIBE or T1 spin echo with fat saturation through the brain. COMPARISON: [facility], , MR BRAIN W&WO CON, 12/29/2016, 12:09. [facility], [place], [place] BONE SCAN WHOLE BODY, 12/29/2016, 12:58. FINDINGS: Image quality: Excellent. CSF Spaces: Basal cisterns are patent. No extra-axial fluid collections. Ventricles are normal in size and shape. Brain: No midline shift. No intracranial bleeds or masses. No abnormal intracranial enhancement. The brainstem appears normal. Diffusion-weighted images demonstrate no acute ischemic insults. No chronic ischemic insults. Normal intravascular flow voids are present. Note is made of stable appearing susceptibility artifact at the brainstem/cerebellar junction at the low posterior cranial fossa on the left, best seen centered on series 8 and 9 images 13. A mass or evidence of vascular malformation in this area is not seen on postcontrast imaging. This has not changed from initial MR from . Skull and face: Calvarial marrow is normal in signal but at the skull base the clivus and medial Kesha bones, left greater than right, show heterogeneous elevated contrast enhancement potentially representing metastatic disease without identifiable mass effect in those areas (for example, see series 12 image 21. Orbits appear normal. Sinuses: Sinuses and mastoids appear clear except for relatively prominent bilateral mastoid air cell fluid signal, right greater than left, and somewhat worsened on the left when compared to the 12/23 MRI. IMPRESSION: 1. Mastoid air cell opacification is quite prominent in this patient, right greater than left, and has mildly worsened from 12/29/16 on the left. It is possible that mastoiditis may relate to the clinical history of dizziness over several months. 2. Mild microvascular atherosclerotic change in the deep white matter of each hemisphere. No brain parenchymal mass or area of stroke or hemorrhage is found. 3. There is a small area of susceptibility artifact at the posterior cranial fossa at the junction of the medullary portion of the brainstem and the cerebellum. The contrast enhanced portion of the study does not show a vascular malformation at this site. 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 This is positioned near the origin of the seventh and eighth cranial nerves on the left, but has not changed from December of this year and reportedly the dizziness symptomatology has been present for 2 months (from information provided to the MR technologist). 4. The patient carries a history of prostate carcinoma, and there is no visualized evidence of metastatic disease to the brain parenchyma or meningeal surfaces. However, there is marrow contrast enhancement seen at the clivus and at the medial Kesha ridges bilaterally, left greater than right, and nuclear medicine bone scan from December of this year has documented extensive osseous metastatic disease including potentially extending cephalad into the skull base. Dictated by: Bethel Trinh M.D. on 06/10/2017 at 14:45 Approved by: Bethel Trinh M.D. on 06/10/2017 at 15:02 12-lead ECG According to [facility] and EKG image is not available to me at the time of this dictation: Sinus rhythm rate of 79 and her T waves V1 to V6 Q waves V1 and V2 T- wave inversions. Unchanged from prior. Cardiac Echo Impressions Pending at the time this dictation Assessment & Plan #Persistent dizziness/lightheadedness 2 months, present on admission -Worse since recent discharge and unclear etiology he currently is rate controlled upon admission here -By history is not positional. -We will proceed with MRI of brain with and without contrast which did show no significant abnormalities. Last check was in December. -Also check echocardiogram with results pending -May also be related to his dyspnea symptomatology -Check venous blood gas which showed normal results although leaning towards mild respiratory alkalosis #Dyspnea, subacute, present on admission -Appears to be pneumonic infiltrate in the left lower lobe which will further elucidate with CT scan of chest without contrast -Check venous blood gas which was essentially normal as noted above -CT of chest did show larger pericardial effusion and hence await results of echocardiogram #Possible obstructive sleep apnea, subacute times months, present on admission -We will proceed with checking nocturnal pulse oximetry #History of atrial fibrillation, chronic, present on admission -Continue his Coumadin therapy to be managed by pharmacy -Placed on telemetry -Check echocardiogram #Possible healthcare associated pneumonia, acute, present on admission -Check CT of chest as noted above which did not show any infiltrates pneumonic and hence IV antibiotics were stopped on June 12. 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
--- NOTE | 2017-06-11 15:05 | NUR ---
Telemetry: Notified by [employer] patient has been SR80s, however this afternoon, HR has been dropping to 40s, briefly goes into a Junctional rhythm then back to SR. Asymptomatic. notified. MD order received for Cardizem adjustments. Addendum: 06/11/17 at 1833 by MARY LOU PARKER RN Notified by [employer], patient converted to A-fib rate of 110s @ 1745. Stat EKG obtained, confirmed A fib/flutter. notified. Received order for Metoprolol IV 5mg for HR >110. At this time, HR in 80s. Will continue to follow. Addendum: 06/11/17 at 1930 by MARY LOU PARKER RN Notified by [employer] that patient converted back to SR 70s. EKG obtained to confirm. Reported to [facility] my.
--- NOTE | 2017-06-11 16:06 | NUR ---
Social Work- Initial Assessment Data: See Initial Assessment for additional information. Pt is a 87 year old male admitted for pneumonia per H&P. Pt's insurance is [facility], [place]. Pt discussed in multidisciplinary rounds, Pt has no PCP at this time. Pt is followed by Dr. Stacy at [facility] for Home Health services. Pt has metastatic prostate cancer, metastasis to bone. Pt is a readmit, pt was d/c June 07 with [facility] services RN, ABEBA, JEFFERSON. Anna had not yet seen the pt prior to his readmission. VERENICE met with pt and daughter Gudelia [phone]/ [phone] at bedside regarding d/c plan. Pt resides with his Vika in [place] in a home with no steps inside. Pt uses a walker at baseline but also has a wheelchair. Pt is open with [facility] for RNABEBA, JEFFERSON. Left message for Katja at [facility] regarding pt's admission. SW will obtain resumption of care orders prior to pt's d/c. Pt has no SNF history. No LTC or VA benefits (pt is a though). Pt requested that PV INSTALLER TECH call his Vika. T/T Vika by phone regarding d/c planning. Vika confirmed information provided above. Vika confirms that pt has no DPOA on file. Vika declined an additional d/c planning checklist. Vika agreeable to pt d/c home when medically ready. SW provided phone number on whiteboard in pt's room. Pt, , and family all updated and agreeable to plan. Assessment: Pt for whom services are medically necessary Plan: Pt will require resumption of care orders for Anna PAULINO. Pt likely to d/c home with family to transport via POV, resume [facility] services. Pt and updated and agreeable to plan. VERENICE will continue to follow. JEFFERSON Ferrer Addendum: 06/11/17 at 1615 by MICHELLE HINDS SS Amended: Links added.
--- NOTE | 2017-06-11 18:13 | NUR ---
Tele Update: Afib Patient has been Sinus Rhythm 60-70s with an IVCD, rare PVC pairs, and brief junctional episodes in the 40s. At 17:47 patient converted to Afib/Aflutter in the 90-120s. DONY Jackson aware.
--- NOTE | 2017-06-11 18:33 | NUR ---
Family Concerns: Daughters expressing strong concerns over patient not sleeping well since before admission. Requesting something to help with sleep "even a drip if you can." Discussed issues with administering strong sleep aids compounding existing symptoms of dizziness and possible sleep apnea. Daughter requesting a call to MD to ask for something stronger than Melatonin. MD paged. Explained family concerns to MD. MD states she talked at length to and patient about not giving stronger sleep aids, however did receive order for Ativan prn for sleep.
[2017-06-11] MEDS ORDERED: MeTOProlol 1 mg/mL 5 mL Inj IV PRN (19:40)
[2017-06-12] VITALS (8 sets, daily range): BP systolic 97–143; BP diastolic 55–74; PULSE 68–91; RESP 8–20; O2SAT 97–98
[2017-06-12] MEDS: LORazepam 0.5 mg Tablet PO PRN ×2 (04:35→21:03)
--- NOTE | 2017-06-12 04:40 | NUR ---
NOC Sleep Pt reports of not able to have a sleep. Melatonin administered around 2100. Hourly rounding however pt appears to be asleep. Pt then requested to have something for sleep @0430. Administered PO ativan. Will evaluate effectiveness.
[2017-06-12 06:03] LABS: INR 4.64 ratio
[2017-06-12] MEDS ORDERED: Diltiazem CD 240 mg ER24 Capsule PO SCH (08:30)
[2017-06-12] MEDS: Diltiazem CD 120 mg ER24 Capsule PO SCH (08:45)
--- NOTE | 2017-06-12 08:47 | PCM.PNMED ---
Subjective Date of Service Jun 12, 2017 Subjective Patient notes he was not able to sleep well last night up until about 4 AM when he got Ativan 0.5 mg by mouth 1 and then was able to sleep. However upon review of nursing notes it was documented that patient complained of not sleeping all night up until 4 but when checked by nurse he was sleeping. Results of overnight oximetry are pending at the time of this dictation area Exam Vital Signs Vital Sign - Last Date Time Temp Pulse Resp B/P Pulse Ox O2 Delivery O2 Flow Rate FiO2 06/12/17 04:40 36.5 70 18 135/55 97 Room Air 06/10/17 14:14 2.50 Intake and Output 06/11/17 06/11/17 06/12/17 Cumulative From/Thru 15:00 23:00 07:00 06/10/17 09:44 - 06/12/17 00:30 Intake Total 473 ml 1531 ml Output Total 475 ml 1025 ml Balance -2 ml 506 ml Intake Oral 473 ml 1173 ml IV Total 358 ml Output Urine Total 475 ml 1025 ml # Bowel Movements 0 0 Exam Constitutional: Elderly male who is slightly drowsy but alert when stimulated and answers questions appropriately Head: Normocephalic atraumatic Chest: Decreased breath sounds at his bases Cor: Regular rate and rhythm S1-S2 without murmur Abdomen: Soft nontender bowel sounds present Extremities: No pedal edema Psych: Mood and affect are appropriate Neuro: Alert and oriented 3, motor strength is intact bilaterally Skin: No rashes IVs and Medications Medications Reviewed: Medications were reviewed in detail Lab and Diagnostics Laboratory Tests 72 Hours Test 06/10/17 10:00 06/10/17 19:23 06/11/17 05:25 06/12/17 05:25 White Blood Count 6.2th/mm3 (3.8-10.1) 5.1th/mm3 (3.8-10.1) Red Blood Count 3.90mil/mm3 (4.40-5.80) 3.10mil/mm3 (4.40-5.80) Hemoglobin 10.4g/dL (13.8-17.2) 8.3g/dL (13.8-17.2) 9.0g/dL (13.8-17.2) Hematocrit 32.2% (41.0-50.0) 26.0% (41.0-50.0) 28.0% (41.0-50.0) Mean Corpuscular Volume 82.6fL (81-100) 83.9fL (81-100) Mean Corpuscular Hemoglobin 26.7pg (27.0-35.0) 26.8pg (27.0-35.0) Mean Corpuscular Hemoglobin Concent 32.3% (32.0-37.0) 31.9% (32.0-37.0) Red Cell Distribution Width 21.0% (12.3-15.4) 20.9% (12.3-15.4) Platelet Count 108bil/L (150-400) 91bil/L (150-400) Neutrophils (%) (Auto) 62.9% (40-74) 64.7% (40-74) Lymphocytes (%) (Auto) 25.8% (14-46) 22.9% (14-46) Monocytes (%) (Auto) 6.8% (4-12) 7.3% (4-12) Eosinophils (%) (Auto) 0.8% (0-5) 0.8% (0-5) Basophils (%) (Auto) 0.3% (0-3) 0.4% (0-3) Prothrombin Time 43.2sec (8.1-12.5) 54.4sec (8.1-12.5) 51.2sec (8.1-12.5) Prothromb Time International Ratio 3.93ratio 4.92ratio 4.64ratio Sodium Level 132mEq/L (134-144) 135mEq/L (134-144) 137mEq/L (134-144) Potassium Level 3.7mEq/L (3.5-5.2) 3.6mEq/L (3.5-5.2) 3.5mEq/L (3.5-5.2) Chloride Level 96mEq/L (97-108) 101mEq/L (97-108) 102mEq/L (97-108) Carbon Dioxide Level 19mmol/L (18-29) 17mmol/L (18-29) 17mmol/L (18-29) Blood Urea Nitrogen 10mg/dL (8-27) 12mg/dL (8-27) 12mg/dL (8-27) Creatinine 0.71mg/dL (0.76-1.27) 0.70mg/dL (0.76-1.27) 0.72mg/dL (0.76-1.27) Estimat Glomerular Filtration Rate 112mL/min (>59) 114mL/min (>59) 110mL/min (>59) Glucose Level 88mg/dL (60-99) 76mg/dL (60-99) 106mg/dL (60-99) Lactic Acid Level 1.6mmol/L (0.4-2.0) Calcium Level 8.0mg/dL (8.5-10.1) 7.3mg/dL (8.5-10.1) 7.6mg/dL (8.5-10.1) Total Bilirubin 0.5mg/dL (0.0-1.2) 0.5mg/dL (0.0-1.2) 0.4mg/dL (0.0-1.2) Aspartate Amino Transf (AST/SGOT) 25U/L (0-50) 35U/L (0-50) 64U/L (0-50) Alanine Aminotransferase (ALT/SGPT) 8U/L (0-44) 8U/L (0-44) 8U/L (0-44) Alkaline Phosphatase 2004U/L (25-160) 1670U/L (25-160) 2077U/L (25-160) Troponin T 0.010ug/L (0.0-0.011) Pro-B-Type Natriuretic Peptide 2347pg/mL (0-486) Total Protein 5.5g/dL (6.4-8.4) 4.1g/dL (6.4-8.4) 4.3g/dL (6.4-8.4) Albumin 2.4g/dL (3.4-5.0) 2.2g/dL (3.4-5.0) 2.5g/dL (3.4-5.0) Procalcitonin 0.19ng/mL (0.00-0.08) Hold Jimenes Top Tube Received (Received) Urine Color Yellow (YELLOW) Urine Appearance Clear (CLEAR,HAZY) Urine pH 5.5 (5.0-8.0) Urine Specific Winnie 1.010 (1.003-1.035) Urine Protein Negativemg/dL (NEG,TRACE) Urine Glucose (UA) Negativemg/dL (NEGATIVE) Urine Ketones Negativemg/dL (NEGATIVE) Urine Occult Blood Negative (NEGATIVE) Urine Nitrite Negative (NEGATIVE) Urine Bilirubin Negative (NEGATIVE) Urine Urobilinogen Normalmg/dL (NORMAL) Urine Leukocyte Esterase Negative (NEGATIVE) Urine RBC 0-2/hpf (0-2) Urine WBC 0-5/hpf (0-5) Urine Epithelial Cells Few/hpf (NONE-MOD) Urine Crystals None seen (NONE SEEN) Urine Bacteria Few/hpf (NONE-FEW) Urine Hyaline Casts None/lpf (NONE) Urine Granular Casts None seen (NONE SEEN) Urine Waxy Casts None seen (NONE SEEN) Urine Red Blood Cell Casts None seen (NONE SEEN) Urine White Blood Cell Casts None seen (NONE SEEN) Urine Mucus Present (None Seen) Urine Trichomonas None seen (NONE SEEN) Urine Yeast None (NONE SEEN) Urinalysis Comment None Urine Culture Reflexed Not indicated Band Neutrophils % 4% (1-5) Result Diagram: 06/12/1752406/12/17524 X-Rays, CTs and MRIs PROCEDURE: X-RAY CHEST ONE VIEW, PORTABLE ([id number]) INDICATIONS: Shortness of breath TECHNIQUE: One view of the chest was acquired. COMPARISON: [facility], [place], [place] BONE SCAN WHOLE BODY, 12/29/2016, 12: 58. [facility], CR, XR CHEST 1VW (PORTABLE), 06/03/2017, 23:47. [facility], CR, XR CHEST 2VW, 03/01/2017, 11:23. FINDINGS: Surgical changes and devices: None. Lungs and pleura: No pleural effusions or pneumothorax. Lungs are abnormal with what appears to be a mild pulmonary edema pattern and also left mid and lower lung pneumonia. There may be a slight degree of pneumonia the right lung base. Mediastinum: Mediastinal contours appear normal. Heart size is normal. Bones and chest wall: Previously present extensive suspicious bony lesions indicate presence of extensive metastatic disease, osteoblastic. Overlying soft tissues appear unremarkable. IMPRESSION: Left mid and lower lung pneumonia, possible slight pulmonary edema, possible slight medial right lung base pneumonia also. Extensive osteoblastic metastatic disease again noted. Dictated by: Bethel Trinh M.D. on 06/10/2017 at 10:35 Approved by: Bethel Trinh M.D. on 06/10/2017 at 10:37 PROCEDURE: CT CHEST WITHOUT CONTRAST ([id number]) INDICATIONS: dyspnea TECHNIQUE: Noncontrast 5 mm thick sections acquired from the pulmonary apices to the posterior costophrenic angles. 7 mm thick coronal and sagittal MIP reformats were then acquired. For radiation dose reduction, the following was used: automated exposure control, adjustment of mA and/or kV according to patient size. COMPARISON: None. FINDINGS: Image quality: Excellent. Lungs and pleura: No acute air space opacities that would suggest presence of pneumonia or metastatic disease but there is mild increased atelectasis at each lung base. There has been a small interval increase in the left pleural effusion but no definite change in the right pleural effusion from 06/04/17, and no interval development of pneumothorax. Central and peripheral airways are patent and normal in caliber. Mediastinum: Heart size is at the upper limits of normal. A significant change has occurred at the pericardium with a new significant pericardial effusion, measuring up to almost 3 cm in maximal AP dimension (series 2 image 48). No mediastinal adenopathy by size criteria. Thoracic aorta and central pulmonary arteries are normal in size. Esophagus is normal in caliber. No hiatal hernia. 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 No vertebral body compression fractures. No axillary or supraclavicular adenopathy by size criteria. Thyroid gland is is not well-visualized by this noncontrast CT. Abdomen: Visualized upper abdominal solid organs and bowel loops appear normal in the absence of contrast. IMPRESSION: Significant short term interval increase in size of a pericardial effusion now large measuring up to almost 3 cm in maximal AP dimension. Restriction of normal cardiac function may be associated. No definite interval increase in right pleural effusion, small interval increase in left pleural effusion. 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 Dictated by: Bethel Trinh M.D. on 06/10/2017 at 18:40 Approved by: Bethel Trinh M.D. on 06/10/2017 at 18:47 PROCEDURE: MRI BRAIN WITH AND WITHOUT CONTRAST ([id number]) INDICATIONS: dizziness x 2 months TECHNIQUE: Noncontrast axial T1 spin echo, axial T2 fast spin echo, sagittal and axial FLAIR, coronal T2 fast spin echo, axial gradient echo, axial diffusion and ADC through the brain. After the administration of contrast, axial and coronal 3D VIBE or T1 spin echo with fat saturation through the brain. COMPARISON: [facility], MR, MR BRAIN W&WO CON, 12/29/2016, 12:09. [facility], [place] BONE SCAN WHOLE BODY, 12/29/2016, 12:58. FINDINGS: Image quality: Excellent. CSF Spaces: Basal cisterns are patent. No extra-axial fluid collections. Ventricles are normal in size and shape. Brain: No midline shift. No intracranial bleeds or masses. No abnormal intracranial enhancement. The brainstem appears normal. Diffusion-weighted images demonstrate no acute ischemic insults. No chronic ischemic insults. Normal intravascular flow voids are present. Note is made of stable appearing susceptibility artifact at the brainstem/cerebellar junction at the low posterior cranial fossa on the left, best seen centered on series 8 and 9 images 13. A mass or evidence of vascular malformation in this area is not seen on postcontrast imaging. This has not changed from initial MR from . Skull and face: Calvarial marrow is normal in signal but at the skull base the clivus and medial Kesha bones, left greater than right, show heterogeneous elevated contrast enhancement potentially representing metastatic disease without identifiable mass effect in those areas (for example, see series 12 image 21. Orbits appear normal. Sinuses: Sinuses and mastoids appear clear except for relatively prominent bilateral mastoid air cell fluid signal, right greater than left, and somewhat worsened on the left when compared to the 12/23 MRI. IMPRESSION: 1. Mastoid air cell opacification is quite prominent in this patient, right greater than left, and has mildly worsened from 12/29/16 on the left. It is possible that mastoiditis may relate to the clinical history of dizziness over several months. 2. Mild microvascular atherosclerotic change in the deep white matter of each hemisphere. No brain parenchymal mass or area of stroke or hemorrhage is found. 3. There is a small area of susceptibility artifact at the posterior cranial fossa at the junction of the medullary portion of the brainstem and the cerebellum. The contrast enhanced portion of the study does not show a vascular malformation at this site. 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 This is positioned near the origin of the seventh and eighth cranial nerves on the left, but has not changed from December of this year and reportedly the dizziness symptomatology has been present for 2 months (from information provided to the MR technologist). 4. The patient carries a history of prostate carcinoma, and there is no visualized evidence of metastatic disease to the brain parenchyma or meningeal surfaces. However, there is marrow contrast enhancement seen at the clivus and at the medial Kesha ridges bilaterally, left greater than right, and nuclear medicine bone scan from December of this year has documented extensive osseous metastatic disease including potentially extending cephalad into the skull base. Dictated by: Bethel Trinh M.D. on 06/10/2017 at 14:45 Approved by: Bethel Trinh M.D. on 06/10/2017 at 15:02 12-lead ECG According to LINK ABURTO and EKG image is not available to me at the time of this dictation: Sinus rhythm rate of 79 and her T waves V1 to V6 Q waves V1 and V2 T- wave inversions. Unchanged from prior. Cardiac Echo Impressions Echocardiogram Report Name: NIRAJ CLARK Study Date: 06/11/2017 Height: 70 in Hospital Exam Location: [facility] Weight: 159 lb Gender: Male BSA: 1.9 m2 : 1930 Age: 87 yrs BP: 128/67 mm Hg Reason For Study: Dyspnea Ordering Physician: [facility]IOIST [facility] Performed By: Chel Shore Referring Physician: Anthony Sahni Interpretation Summary The left ventricle is normal in size. The ejection fraction is estimated to be 55-60%. The right ventricle is normal size. The right ventricular systolic function is normal. There is mild mitral regurgitation. Compared to the prior echo study, there has been an increase in the severity of mitral regurgitation. There is a moderate to large pericardial effusion noted (Patient has chonically moderate to large pericardial effusion seen in 10/2014 echo as well. In this study, there appears to be mild worsening anterior to right ventricle. Based on right ventricle contractility pattern, there is some evidence of increased intrapericardial pressure, however, do not see classical tamponade pattern. IVC is not dilated. doppler profile across the david valve do not support tamponade.. BP: 128/67 mmHg. The IVC is of normal diameter and collapses greater than 50% with a sniff. This suggests a low right atrial pressure of 3 mm Hg. There are moderate-sized bilateral pleural effusions noted (New). Assessment & Plan #Persistent dizziness/lightheadedness 2 months, present on admission -Worse since recent discharge and unclear etiology he currently is rate controlled upon admission here -By history is not positional. -We will proceed with MRI of brain with and without contrast which did show no significant abnormalities. Last check was in December. -Also check echocardiogram with results , see echocardiogram report above. Does have slightly increasing pericardial effusion. -May also be related to his dyspnea symptomatology -Check venous blood gas which showed normal results although leaning towards mild respiratory alkalosis -Phone call put in to cardiology regarding consult on June 12. #Dyspnea, subacute, present on admission -Appears to be pneumonic infiltrate in the left lower lobe which will further elucidate with CT scan of chest without contrast -Check venous blood gas which was essentially normal as noted above -CT of chest did show larger pericardial effusion and hence await results of echocardiogram -Cardiology consult as above #Possible obstructive sleep apnea, subacute times months, present on admission -We will proceed with checking nocturnal pulse oximetry #History of atrial fibrillation, chronic, present on admission -Continue his Coumadin therapy to be managed by pharmacy -Placed on telemetry -Check echocardiogram, see report above -Evening of June 11 patient did have conversion into atrial fibrillation at a rate of 100-110 and currently spontaneously went back into sinus rhythm #Possible healthcare associated pneumonia, acute, present on admission -Check CT of chest as noted above which did not show any infiltrates pneumonic and hence IV antibiotics were stopped on June 12. 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
--- NOTE | 2017-06-12 09:00 | NUR ---
KADEN signed. JEFFERSON Zelaya
--- NOTE | 2017-06-12 11:22 | PCM.PHAPRO ---
Progress Date of Service: Jun 12, 2017 Warfarin dosing Date Jun 11-Jun 12-Jun INR 3.93 4.92 4.64 INR change 0.99 -0.28 Warf Dose HOLD hold HOLD Elba Martinez PharmD Jun 12, 2017 11:22
[2017-06-12] MEDS ORDERED: Vancomycin Serum Trough XX ONE (11:45)
--- NOTE | 2017-06-12 13:44 | NUR ---
Social Work-readiness for discharge: Data:EMR reviewed. Pt is on day 2 of hospitalization for Pneumonia per H&P. Pt is not medically stable anticipate 1-2 more days. MD order received for resume HH orders. VERENICE placed a call to [facility] who confirms they have pt on services and pt is receiving RN,INSPECTOR AND UNLOADER,and [employer] COOK through [facility] .SW will continue to follow. Assessment:Pt who would benefit from resume HH. Plan:Pt to discharge home when medically stable via POV. Pt will need resume HH order at discharge through [facility] for RN,INSPECTOR AND UNLOADER, and [employer]EIGN [employer] SPECIALTY COOK. SW will continue to follow. JEFFERSON Zelaya
--- NOTE | 2017-06-12 15:51 | NUR ---
Telemetry: Notified by [employer], patient converted to A Flutter 100s @ approx 1220. Stat EKG obtained to confirm. notified. On assessment, patient resting with eyes closed. Denies palpitations, SOB. SUPERVISOR MOLD SHOP 98% room air. Family at bedside. Addendum: 06/12/17 at 1816 by MARY LOU PARKER RN Notified by [employer] @ approx 1715 of HR increased to 120-140s. Metoprolol 5mg IV administered per PRN orders. notified. On reassessment @ approx 1810, HR 70s A-fib/flutter per monitor car operator. tomography technologist called back @ approx 181, stating that patient converted back to SR 70s.
[2017-06-12] MEDS: 0.9% Sodium Chloride 1,000 ML IV SCH (17:49)
--- NOTE | 2017-06-12 20:08 | CONS ---
[address] [address] CONSULTATION REPORT PATIENT: NIRAJ CLARK : 1930 MR#: [id number] ADMIT: 06/10/2017 JOB ID: [id number] DATE OF SERVICE: 06/12/2017 HISTORY OF PRESENT ILLNESS: The patient is a very pleasant, 87-year-old gentleman that I have been asked to see to determine if his chronic pericardial effusion is contributing to his symptoms of dizziness and dyspnea. 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 He has been stable from an ischemic heart disease standpoint since that time with no recurrent coronary events. He has a history of intermittent paroxysmal mildly symptomatic atrial fibrillation treated with anticoagulation therapy and previously low-dose metoprolol to currently low-dose diltiazem. Over the past four to five years, he has been dealing with metastatic prostate cancer. He has been on a variety of therapies as outlined by Dr. Dotson and, most recently, he had significant side effects associated with his docetaxel. In reviewing his records, it appears that he has lost close to 20 pounds over the past couple of months and at least 10 pounds just in the last couple of weeks. He states that his appetite is poor and that he has lost his sense of taste as a result of the docetaxel medication. His predominant complaint is generalized weakness in addition to weight loss and fatigue, and he has fairly prominent symptoms of orthostatic lightheadedness such that just sitting on the bed or trying to stand up he feels like all of his blood leaves his head and he will faint if he does not sit down. He is denying any symptoms of anginal chest discomfort. He has had intermittent episodes of atrial fibrillation during the current hospital stay and his previous hospital stay between June 04 and June 09. ADMISSION MEDICATIONS: Included his diltiazem 240 mg daily and warfarin 2.5 mg alternating with 1.25 mg daily in addition to CoQ10, and ascorbic acid. PAST MEDICAL AND FAMILY HISTORY: Reviewed. SOCIAL HISTORY: Notable that the patient lives in [place] in a home with his . His family is close by, but it is unclear to me how he is able to manage at home given his current symptoms. In addition to the cardiac history I detailed above, I left out an important fact that he has had a chronic pericardial effusion which dates back to around 2006 or 2007. As I review his CT scans and echocardiograms, I do not find any evidence to suggest that the severity of the pericardial effusion is greater than it has been. PHYSICAL EXAMINATION: This gentleman appears weak and frail. He does show evidence of moderate pallor and is bald. Jugular veins are flat at 20 degrees suggesting low central venous pressure. Orthostatic blood pressures have not been measured. His lungs are unremarkable currently. Cardiac auscultation is notable for an irregularly irregular rhythm, appears well controlled. Heart tones are somewhat distant. There is no pericardial friction rub. There is a soft aortic systolic ejection murmur, but no other significant abnormalities. Abdomen is soft and nontender with no organomegaly. Distal extremities show no significant edema. Blood work is notable for a hemoglobin in the 8-9 range, platelet count is moderately low at 91,000, white count 5.1 thousand. Chemistries show slightly low potassium as creatinine is 0.72, alkaline phosphatase is markedly elevated related to his metastatic prostate CA with a low protein and albumin level. Chest CT scan shows no obvious increase in both bilateral pleural effusions and moderate-sized pericardial effusion. The patient does have evidence of extensive osteoblastic metastatic bone disease. DISCUSSION: The pericardial effusion is chronic and stable and unrelated to the patient's current symptoms. He has lost considerable weight and appears quite dehydrated to me as well as anemic, and I think that contributes to his sense of fatigue and weakness, and I think he probably has fairly significant orthostatic hypotension. I have spoken with and suggested aggressive volume loading. He is on appropriate medications for his atrial fibrillation which I think is not a significant issue at this point in time, and has been stable from a chronic ischemic heart disease for a long time as well. At this point, I do not have further recommendations regarding this gentleman's care. Do not hesitate to give me a call if you have any other questions or concerns.
--- NOTE | 2017-06-12 20:25 | NUR ---
NOC/Ortho VS Pt unable to complete ortho VS due to anxiety "I'm about to passed out". Lying and sitting VS taken and record. Lying: BP: 133/74 RI: 79 Sitting: BP: 119/69 RI: 82 Pt unable to last standing, thus, standing VS unable to obtain. No severe drop in oxygenation when obtaining Ortho VS. O2 sats sustain high 97-98% saturation. Telemetry noted no significant change. Continuing to monitor. Addendum: 06/13/17 at 0448 by LIV JESSICA RN Ortho VS redo in am lying BP: 142/76 P: 78 sitting BP: 130/77 P: 82 standing BP: 113/74 P: 93 No decreased in o2 saturation and has been staying high 95% on RA. Still complains of lightheadedness when doing the activity especially when standing up. Telemetry noted no acute changes in rhythm.
[2017-06-13] VITALS (10 sets, daily range): BP systolic 113–147; BP diastolic 73–87; PULSE 72–97; RESP 16–18; O2SAT 95–98
[2017-06-13] MEDS: 0.9% Sodium Chloride 1,000 ML IV SCH ×3 (03:50→20:29)
[2017-06-13 06:03] LABS: INR 3.02 ratio
[2017-06-13] MEDS: Diltiazem CD 120 mg ER24 Capsule PO SCH (08:29)
[2017-06-13 09:25] LABS: Unsaturated Iron Binding 93.6 ug/dL
--- NOTE | 2017-06-13 11:07 | PCM.PHAPRO ---
Progress Date of Service: Jun 13, 2017 Warfarin dosing Date Jun 11-Jun 12-Jun 13-Jun INR 3.93 4.92 4.64 3.02 INR change 0.99 -0.28 -1.62 Warf Dose HOLD hold HOLD 1.25MG Elba Martinez PharmD Jun 13, 2017 11:06
[2017-06-13] MEDS ORDERED: 0.9% Sodium Chloride 250 ML ONE (11:47)
--- NOTE | 2017-06-13 13:27 | PCM.PNMED ---
Subjective Date of Service Jun 13, 2017 Subjective Patient does still note some lightheadedness with sitting and some dyspnea. Denies any chest pain. Exam Vital Signs Vital Sign - Last Date Time Temp Pulse Resp B/P Pulse Ox O2 Delivery O2 Flow Rate FiO2 06/13/17 12:35 36.8 72 134/78 06/13/17 08:44 95 Room Air 06/13/17 04:48 17 06/10/17 14:14 2.50 Intake and Output 06/12/17 06/12/17 06/13/17 Cumulative From/Thru 15:00 23:00 07:00 06/10/17 09:44 - 06/13/17 06:02 Intake Total 200 ml 700 ml 1186 ml 3617 ml Output Total 525 ml 200 ml 1750 ml Balance -325 ml 500 ml 1186 ml 1867 ml Intake Oral 200 ml 700 ml 2073 ml IV Total 1186 ml 1544 ml Output Urine Total 525 ml 200 ml 1750 ml # Bowel Movements 0 0 Exam Situational: Elderly male in no acute distress Head: Normocephalic atraumatic Chest: Some decreased breath sounds at his bases Cor: Regular rate and rhythm S1-S2 Abdomen: Soft nontender bowel sounds present Extremities: No pedal edema Psych: We had and affect appropriate Skin: No rashes Neuro: Alert and oriented 3, motor strength is intact bilaterally IVs and Medications Medications Reviewed: Medications were reviewed in detail Lab and Diagnostics Laboratory Tests 72 Hours Test 06/10/17 19:23 06/11/17 05:25 06/12/17 05:25 06/13/17 05:20 Urine Color Yellow (YELLOW) Urine Appearance Clear (CLEAR,HAZY) Urine pH 5.5 (5.0-8.0) Urine Specific [place] 1.010 (1.003-1.035) Urine Protein Negativemg/dL (NEG,TRACE) Urine Glucose (UA) Negativemg/dL (NEGATIVE) Urine Ketones Negativemg/dL (NEGATIVE) Urine Occult Blood Negative (NEGATIVE) Urine Nitrite Negative (NEGATIVE) Urine Bilirubin Negative (NEGATIVE) Urine Urobilinogen Normalmg/dL (NORMAL) Urine Leukocyte Esterase Negative (NEGATIVE) Urine RBC 0-2/hpf (0-2) Urine WBC 0-5/hpf (0-5) Urine Epithelial Cells Few/hpf (NONE-MOD) Urine Crystals None seen (NONE SEEN) Urine Bacteria Few/hpf (NONE-FEW) Urine Hyaline Casts None/lpf (NONE) Urine Granular Casts None seen (NONE SEEN) Urine Waxy Casts None seen (NONE SEEN) Urine Red Blood Cell Casts None seen (NONE SEEN) Urine White Blood Cell Casts None seen (NONE SEEN) Urine Mucus Present (None Seen) Urine Trichomonas None seen (NONE SEEN) Urine Yeast None (NONE SEEN) Urinalysis Comment None Urine Culture Reflexed Not indicated White Blood Count 5.1th/mm3 (3.8-10.1) Red Blood Count 3.10mil/mm3 (4.40-5.80) Hemoglobin 8.3g/dL (13.8-17.2) 9.0g/dL (13.8-17.2) Hematocrit 26.0% (41.0-50.0) 28.0% (41.0-50.0) Mean Corpuscular Volume 83.9fL (81-100) Mean Corpuscular Hemoglobin 26.8pg (27.0-35.0) Mean Corpuscular Hemoglobin Concent 31.9% (32.0-37.0) Red Cell Distribution Width 20.9% (12.3-15.4) Platelet Count 91bil/L (150-400) Neutrophils (%) (Auto) 64.7% (40-74) Lymphocytes (%) (Auto) 22.9% (14-46) Monocytes (%) (Auto) 7.3% (4-12) Eosinophils (%) (Auto) 0.8% (0-5) Basophils (%) (Auto) 0.4% (0-3) Band Neutrophils % 4% (1-5) Prothrombin Time 54.4sec (8.1-12.5) 51.2sec (8.1-12.5) 33.0sec (8.1-12.5) Prothromb Time International Ratio 4.92ratio 4.64ratio 3.02ratio Sodium Level 135mEq/L (134-144) 137mEq/L (134-144) 137mEq/L (134-144) Potassium Level 3.6mEq/L (3.5-5.2) 3.5mEq/L (3.5-5.2) 4.0mEq/L (3.5-5.2) Chloride Level 101mEq/L (97-108) 102mEq/L (97-108) 104mEq/L (97-108) Carbon Dioxide Level 17mmol/L (18-29) 17mmol/L (18-29) 21mmol/L (18-29) Blood Urea Nitrogen 12mg/dL (8-27) 12mg/dL (8-27) 13mg/dL (8-27) Creatinine 0.70mg/dL (0.76-1.27) 0.72mg/dL (0.76-1.27) 0.76mg/dL (0.76-1.27) Estimat Glomerular Filtration Rate 114mL/min (>59) 110mL/min (>59) 103mL/min (>59) Glucose Level 76mg/dL (60-99) 106mg/dL (60-99) 83mg/dL (60-99) Calcium Level 7.3mg/dL (8.5-10.1) 7.6mg/dL (8.5-10.1) 7.7mg/dL (8.5-10.1) Total Bilirubin 0.5mg/dL (0.0-1.2) 0.4mg/dL (0.0-1.2) 0.3mg/dL (0.0-1.2) Aspartate Amino Transf (AST/SGOT) 35U/L (0-50) 64U/L (0-50) 77U/L (0-50) Alanine Aminotransferase (ALT/SGPT) 8U/L (0-44) 8U/L (0-44) 8U/L (0-44) Alkaline Phosphatase 1670U/L (25-160) 2077U/L (25-160) 2256U/L (25-160) Total Protein 4.1g/dL (6.4-8.4) 4.3g/dL (6.4-8.4) 4.3g/dL (6.4-8.4) Albumin 2.2g/dL (3.4-5.0) 2.5g/dL (3.4-5.0) 2.5g/dL (3.4-5.0) Iron Level 42ug/dL (35-150) Total Iron Binding Capacity 136ug/dL (250-450) Percent Iron Saturation 31%sat (15-50) Unsaturated Iron Binding 93.6ug/dL Result Diagram: 06/12/1752406/13/17 05 X-Rays, CTs and MRIs PROCEDURE: X-RAY CHEST ONE VIEW, PORTABLE ([id number]) INDICATIONS: Shortness of breath TECHNIQUE: One view of the chest was acquired. COMPARISON: [facility], NM, NM BONE SCAN WHOLE BODY, 12/29/2016, 12: 58. [facility], CR, XR CHEST 1VW (PORTABLE), 06/03/2017, 23:47. [facility], CR, XR CHEST 2VW, 03/01/2017, 11:23. FINDINGS: Surgical changes and devices: None. Lungs and pleura: No pleural effusions or pneumothorax. Lungs are abnormal with what appears to be a mild pulmonary edema pattern and also left mid and lower lung pneumonia. There may be a slight degree of pneumonia the right lung base. Mediastinum: Mediastinal contours appear normal. Heart size is normal. Bones and chest wall: Previously present extensive suspicious bony lesions indicate presence of extensive metastatic disease, osteoblastic. Overlying soft tissues appear unremarkable. IMPRESSION: Left mid and lower lung pneumonia, possible slight pulmonary edema, possible slight medial right lung base pneumonia also. Extensive osteoblastic metastatic disease again noted. Dictated by: Bethel Trinh M.D. on 06/10/2017 at 10:35 Approved by: Bethel Trinh M.D. on 06/10/2017 at 10:37 PROCEDURE: CT CHEST WITHOUT CONTRAST ([id number]) INDICATIONS: dyspnea TECHNIQUE: Noncontrast 5 mm thick sections acquired from the pulmonary apices to the posterior costophrenic angles. 7 mm thick coronal and sagittal MIP reformats were then acquired. For radiation dose reduction, the following was used: automated exposure control, adjustment of mA and/or kV according to patient size. COMPARISON: None. FINDINGS: Image quality: Excellent. Lungs and pleura: No acute air space opacities that would suggest presence of pneumonia or metastatic disease but there is mild increased atelectasis at each lung base. There has been a small interval increase in the left pleural effusion but no definite change in the right pleural effusion from 06/04/17, and no interval development of pneumothorax. Central and peripheral airways are patent and normal in caliber. Mediastinum: Heart size is at the upper limits of normal. A significant change has occurred at the pericardium with a new significant pericardial effusion, measuring up to almost 3 cm in maximal AP dimension (series 2 image 48). No mediastinal adenopathy by size criteria. Thoracic aorta and central pulmonary arteries are normal in size. Esophagus is normal in caliber. No hiatal hernia. 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 No vertebral body compression fractures. No axillary or supraclavicular adenopathy by size criteria. Thyroid gland is is not well-visualized by this noncontrast CT. Abdomen: Visualized upper abdominal solid organs and bowel loops appear normal in the absence of contrast. IMPRESSION: Significant short term interval increase in size of a pericardial effusion now large measuring up to almost 3 cm in maximal AP dimension. Restriction of normal cardiac function may be associated. No definite interval increase in right pleural effusion, small interval increase in left pleural effusion. 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 Dictated by: Bethel Trinh M.D. on 06/10/2017 at 18:40 Approved by: Bethel Trinh M.D. on 06/10/2017 at 18:47 PROCEDURE: MRI BRAIN WITH AND WITHOUT CONTRAST ([id number]) INDICATIONS: dizziness x 2 months TECHNIQUE: Noncontrast axial T1 spin echo, axial T2 fast spin echo, sagittal and axial FLAIR, coronal T2 fast spin echo, axial gradient echo, axial diffusion and ADC through the brain. After the administration of contrast, axial and coronal 3D VIBE or T1 spin echo with fat saturation through the brain. COMPARISON: [facility], MR, MR BRAIN W&WO CON, 12/29/2016, 12:09. [facility], NM, NM BONE SCAN WHOLE BODY, 12/29/2016, 12:58. FINDINGS: Image quality: Excellent. CSF Spaces: Basal cisterns are patent. No extra-axial fluid collections. Ventricles are normal in size and shape. Brain: No midline shift. No intracranial bleeds or masses. No abnormal intracranial enhancement. The brainstem appears normal. Diffusion-weighted images demonstrate no acute ischemic insults. No chronic ischemic insults. Normal intravascular flow voids are present. Note is made of stable appearing susceptibility artifact at the brainstem/cerebellar junction at the low posterior cranial fossa on the left, best seen centered on series 8 and 9 images 13. A mass or evidence of vascular malformation in this area is not seen on postcontrast imaging. This has not changed from initial MR from . Skull and face: Calvarial marrow is normal in signal but at the skull base the clivus and medial Kesha bones, left greater than right, show heterogeneous elevated contrast enhancement potentially representing metastatic disease without identifiable mass effect in those areas (for example, see series 12 image 21. Orbits appear normal. Sinuses: Sinuses and mastoids appear clear except for relatively prominent bilateral mastoid air cell fluid signal, right greater than left, and somewhat worsened on the left when compared to the 12/23 MRI. IMPRESSION: 1. Mastoid air cell opacification is quite prominent in this patient, right greater than left, and has mildly worsened from 12/29/16 on the left. It is possible that mastoiditis may relate to the clinical history of dizziness over several months. 2. Mild microvascular atherosclerotic change in the deep white matter of each hemisphere. No brain parenchymal mass or area of stroke or hemorrhage is found. 3. There is a small area of susceptibility artifact at the posterior cranial fossa at the junction of the medullary portion of the brainstem and the cerebellum. The contrast enhanced portion of the study does not show a vascular malformation at this site. 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 This is positioned near the origin of the seventh and eighth cranial nerves on the left, but has not changed from December of this year and reportedly the dizziness symptomatology has been present for 2 months (from information provided to the MR technologist). 4. The patient carries a history of prostate carcinoma, and there is no visualized evidence of metastatic disease to the brain parenchyma or meningeal surfaces. However, there is marrow contrast enhancement seen at the clivus and at the medial Kesha ridges bilaterally, left greater than right, and nuclear medicine bone scan from December of this year has documented extensive osseous metastatic disease including potentially extending cephalad into the skull base. Dictated by: Bethel Trinh M.D. on 06/10/2017 at 14:45 Approved by: Bethel Trinh M.D. on 06/10/2017 at 15:02 12-lead ECG According to [facility] and EKG image is not available to me at the time of this dictation: Sinus rhythm rate of 79 and her T waves V1 to V6 Q waves V1 and V2 T- wave inversions. Unchanged from prior. Cardiac Echo Impressions Echocardiogram Report Name: NIRAJ CLARK Study Date: 06/11/2017 Height: 70 in Hospital Exam Location: [facility] Weight: 159 lb Gender: Male BSA: 1.9 m2 : 1930 Age: 87 yrs BP: 128/67 mm Hg Reason For Study: Dyspnea Ordering Physician: [facility] Performed By: Chel Shore Referring Physician: Anthony Sahni Interpretation Summary The left ventricle is normal in size. The ejection fraction is estimated to be 55-60%. The right ventricle is normal size. The right ventricular systolic function is normal. There is mild mitral regurgitation. Compared to the prior echo study, there has been an increase in the severity of mitral regurgitation. There is a moderate to large pericardial effusion noted (Patient has chonically moderate to large pericardial effusion seen in 10/2014 echo as well. In this study, there appears to be mild worsening anterior to right ventricle. Based on right ventricle contractility pattern, there is some evidence of increased intrapericardial pressure, however, do not see classical tamponade pattern. IVC is not dilated. doppler profile across the david valve do not support tamponade.. BP: 128/67 mmHg. The IVC is of normal diameter and collapses greater than 50% with a sniff. This suggests a low right atrial pressure of 3 mm Hg. There are moderate-sized bilateral pleural effusions noted (New). Assessment & Plan #Persistent dizziness/lightheadedness 2 months, present on admission -Worse since recent discharge and unclear etiology he currently is rate controlled upon admission here -By history is not positional. -We will proceed with MRI of brain with and without contrast which did show no significant abnormalities. Last check was in December. -Also check echocardiogram with results , see echocardiogram report above. Does have slightly increasing pericardial effusion. -May also be related to his dyspnea symptomatology -Check venous blood gas which showed normal results although leaning towards mild respiratory alkalosis -Appreciate cardiology consultation. The patient was dehydrated and orthostatics done did corroborate that diagnosis. He was started on IV fluids overnight -With IV fluids he did have some anemia and patient has had blood transfusions in the past. And we will proceed with transfusing 1 unit PRBCs #Acute on chronic anemia, present on admission -Patient has been requiring episodic blood transfusions so at this point we will transfuse 1 unit PRBC -Guaiac stools -Check B12 folate iron levels #Dyspnea, subacute, present on admission -Appears to be pneumonic infiltrate in the left lower lobe which will further elucidate with CT scan of chest without contrast -Check venous blood gas which was essentially normal as noted above -CT of chest did show larger pericardial effusion and hence await results of echocardiogram -Cardiology consult as above #Possible obstructive sleep apnea, subacute times months, present on admission -We will proceed with checking nocturnal pulse oximetry #History of atrial fibrillation, chronic, present on admission -Continue his Coumadin therapy to be managed by pharmacy -Placed on telemetry -Check echocardiogram, see report above -Evening of June 11 patient did have conversion into atrial fibrillation at a rate of 100-110 and currently spontaneously went back into sinus rhythm #Possible healthcare associated pneumonia, acute, present on admission -Check CT of chest as noted above which did not show any infiltrates pneumonic and hence IV antibiotics were stopped on June 12. 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
--- NOTE | 2017-06-13 14:09 | NUR ---
NUTRITION ASSESSMENT: Assess: 87 YO Male admitted with persistent dizziness/light headedness and acute on chronic anemia. Pt has prostate cancer and recently decided to stop chemotherapy. RD visited with pt and last admit regarding poor appetite and wt loss. She stated pt had lost 30 lbs in 3.5-4 months due to chemotherapy. Pt does not like supplements such as Ensure or Boost. PMHX: Afib, prostate cancer with bone mets, sinus bradycardia, CAD, HTN, pericardial effusion, HLD. DIET: Heart Healthy. PO 15-85% of meals with po avg of 60% x 2 days. LABS: Reviewed. Alb 2.5 MEDICATIONS: Reviewed. GI: No BM noted. ANTHROPOMETRICS: WT: 67.1 kg. Admit wt: 68.1 kg. Last admit wt: 69.0 kg. Reported wt loss 30 lbs X 3 months. Per EMR, previous wt of 86.4 kg (11/18/16) = significant wt loss of 13.3 kg (15% of BW X 6 months). ESTIMATED NEEDS: CANCER Calories: 8117-2731 kcal/day (30-35 kcal/kg BW) Protein: 80-125 g/day (1.2-1.8 g/kg BW) NUTRITION DIAGNOSIS: 1) Inadequate oral intake related to decreased ability to consume sufficient energy as evidenced by poor PO, reported wt loss of 30 lbs X 4 months on recent admit (confirmed by EMR) and current po intake avg of 45% of meals x 3 days. INTERVENTION: 1) Will add Ensure clear to pt's meals to encourage adequate nutrition. Pt does not like regular Ensure or other thick supplements. 2) High calorie/protein nutrition therapy provided 06/05. 3) Recommend liberalization of diet from heart healthy to general. MONITOR/EVALUATE: PO intake, labs, weight, POC, GI/nutrition status. Follow per high nutrition risk guidelines. Addendum: 06/14/17 at [address] ANTHROPOMETRICS: WT: 67.1 kg. Admit wt: 68.1 kg. Last admit wt: 69.0 kg. Reported wt loss 30 lbs X 3 months. Per EMR, previous wt of 86.4 kg (11/18/16). Pt with severe wt loss of 18.3 kg or 21.2% x 8 months per EMR review. NUTRITION DIAGNOSIS: 2.) Severe malnutrition in context of acute on chronic illness related to decreased appetite as evidenced by wt loss of 21.2% x 8 months and po intake < 50% of needs x 5 days.
--- NOTE | 2017-06-13 15:59 | NUR ---
1unit PRBCs Low H/H, still requiring continuous fluids, symptomatic orthostatic hypotension. 1unit PRBCs admin, tolerated without adverse reaction.
--- NOTE | 2017-06-13 16:00 | NUR ---
Transition of care This RN resumed care of pt at 1530. Pt in bed, family at bedside. Pt c/o back pain. Tylenol not very effective. Will ask for other methods.
[2017-06-13] MEDS: Lidocaine Topical 5% Patch TOPICAL SCH (16:24)
[2017-06-13] MEDS: Polyethylene Glycol (PEG) 17 Gm Powder PO PRN (18:38)
[2017-06-13] MEDS: LORazepam 0.5 mg Tablet PO PRN (20:27)
--- NOTE | 2017-06-13 21:53 | PCM.PNMED ---
Subjective Date of Service Jun 14, 2017 Subjective 87 yo WM admitted on 06/10 due to concern for dizziness and dyspnea. It appears HCAP is ruled out, abx were stopped on 06/12 as his issues are thought to be secondary to b/l pleural effusions and pericardial effusions. Cardiology has seen the pt on 06/12 recommended treating dehydration and anemia. Pt was transfused one unit of PRBC on 06/13 to address the anemia. He had a recent admission at [facility] for afib with RVR and was put on coumadin. Patient's pleural effusions and pericardial effusions are worsening per US echo done on 06/12. Severe MR was noted. He also has mets from prostate cancer as evidenced by Brain MRI on 06/10. Orthostatics were performed and were positive earlier in his hospital stay, improved today after IVF hydration and blood transfusion yesterday. He says he is feeling better. He denies dyspnea. States he wants physical therapy. Exam Vital Signs Vital Sign - Last Date Time Temp Pulse Resp B/P Pulse Ox O2 Delivery O2 Flow Rate FiO2 06/14/17 20:25 36.4 86 20 131/81 98 Room Air 06/10/17 14:14 2.50 Intake and Output 06/13/17 06/13/17 06/14/17 Cumulative From/Thru 15:00 23:00 07:00 06/10/17 09:44 - 06/14/17 06:32 Intake Total 400 ml 1934 ml 1245 ml 7196 ml Output Total 400 ml 700 ml 300 ml 3150 ml Balance 0 ml 1234 ml 945 ml 4046 ml Intake Oral 400 ml 622 ml 100 ml 3195 ml IV Total 991 ml 1145 ml 3680 ml Packed Cells 321 ml 321 ml Output Urine Total 400 ml 700 ml 300 ml 3150 ml # Bowel Movements 0 Vital Sign - Last Date Time Temp Pulse Resp B/P Pulse Ox O2 Delivery O2 Flow Rate FiO2 06/13/17 20:30 37.2 97 18 144/87 98 Room Air 06/10/17 14:14 2.50 Intake and Output 06/12/17 06/12/17 06/13/17 Cumulative From/Thru 15:00 23:00 07:00 06/10/17 09:44 - 06/13/17 06:02 Intake Total 200 ml 700 ml 1186 ml 3617 ml Output Total 525 ml 200 ml 1750 ml Balance -325 ml 500 ml 1186 ml 1867 ml Intake Oral 200 ml 700 ml 2073 ml IV Total 1186 ml 1544 ml Output Urine Total 525 ml 200 ml 1750 ml # Bowel Movements 0 0 Exam Situational: Elderly male in no acute distress Head: Normocephalic atraumatic Chest: Some decreased breath sounds and crackles at his bases Cor: Regular rate and rhythm and no murmurs Abdomen: Soft nontender bowel sounds present Extremities: No pedal edema Psych:affect appropriate, negative for anxiety Skin: No rashes Neuro: Alert and oriented 3 IVs and Medications IV Fluids None Medications Reviewed: Medications were reviewed in detail Lab and Diagnostics Laboratory Tests Test 06/14/17 05:20 White Blood Count 7.2th/mm3 (3.8-10.1) Red Blood Count 3.67mil/mm3 (4.40-5.80) Hemoglobin 9.9g/dL (13.8-17.2) Hematocrit 30.5% (41.0-50.0) Mean Corpuscular Volume 83.1fL (81-100) Mean Corpuscular Hemoglobin 27.0pg (27.0-35.0) Mean Corpuscular Hemoglobin Concent 32.5% (32.0-37.0) Red Cell Distribution Width 19.8% (12.3-15.4) Platelet Count 64bil/L (150-400) Neutrophils (%) (Auto) 72% (40-74) Lymphocytes (%) (Auto) 20% (14-46) Monocytes (%) (Auto) 5% (4-12) Eosinophils (%) (Auto) 0% (0-5) Basophils (%) (Auto) 1% (0-3) Band Neutrophils % 3% (1-5) Nucleated Red Blood Cells 3/100 WBC (0-24) Hematology Comments Prothrombin Time 27.4sec (8.1-12.5) Prothromb Time International Ratio 2.51ratio Sodium Level 137mEq/L (134-144) Potassium Level 3.9mEq/L (3.5-5.2) Chloride Level 103mEq/L (97-108) Carbon Dioxide Level 18mmol/L (18-29) Blood Urea Nitrogen 14mg/dL (8-27) Creatinine 0.69mg/dL (0.76-1.27) Estimat Glomerular Filtration Rate 116mL/min (>59) Glucose Level 81mg/dL (60-99) Calcium Level 7.4mg/dL (8.5-10.1) Total Bilirubin 0.4mg/dL (0.0-1.2) Aspartate Amino Transf (AST/SGOT) 200U/L (0-50) Alanine Aminotransferase (ALT/SGPT) 12U/L (0-44) Alkaline Phosphatase 4247U/L (25-160) Total Protein 4.3g/dL (6.4-8.4) Albumin 2.4g/dL (3.4-5.0) Microbiology 06/10/17 Blood Culture - Preliminary, Resulted No growth at 2 days; culture examined... 06/10/17 MRSA (PCR) - Final, Complete Result Diagram: 06/12/17 0525 06/13/17 0520 X-Rays, CTs and MRIs PROCEDURE: X-RAY CHEST ONE VIEW, PORTABLE ([id number]) INDICATIONS: Shortness of breath TECHNIQUE: One view of the chest was acquired. COMPARISON: [facility], [place], [place] BONE SCAN WHOLE BODY, 12/29/2016, 12: 58. [facility], CR, XR CHEST 1VW (PORTABLE), 06/03/2017, 23:47. [facility], CR, XR CHEST 2VW, 03/01/2017, 11:23. FINDINGS: Surgical changes and devices: None. Lungs and pleura: No pleural effusions or pneumothorax. Lungs are abnormal with what appears to be a mild pulmonary edema pattern and also left mid and lower lung pneumonia. There may be a slight degree of pneumonia the right lung base. Mediastinum: Mediastinal contours appear normal. Heart size is normal. Bones and chest wall: Previously present extensive suspicious bony lesions indicate presence of extensive metastatic disease, osteoblastic. Overlying soft tissues appear unremarkable. IMPRESSION: Left mid and lower lung pneumonia, possible slight pulmonary edema, possible slight medial right lung base pneumonia also. Extensive osteoblastic metastatic disease again noted. Dictated by: Bethel Trinh M.D. on 06/10/2017 at 10:35 Approved by: Bethel Trinh M.D. on 06/10/2017 at 10:37 PROCEDURE: CT CHEST WITHOUT CONTRAST ([id number]) INDICATIONS: dyspnea TECHNIQUE: Noncontrast 5 mm thick sections acquired from the pulmonary apices to the posterior costophrenic angles. 7 mm thick coronal and sagittal MIP reformats were then acquired. For radiation dose reduction, the following was used: automated exposure control, adjustment of mA and/or kV according to patient size. COMPARISON: None. FINDINGS: Image quality: Excellent. Lungs and pleura: No acute air space opacities that would suggest presence of pneumonia or metastatic disease but there is mild increased atelectasis at each lung base. There has been a small interval increase in the left pleural effusion but no definite change in the right pleural effusion from 06/04/17, and no interval development of pneumothorax. Central and peripheral airways are patent and normal in caliber. Mediastinum: Heart size is at the upper limits of normal. A significant change has occurred at the pericardium with a new significant pericardial effusion, measuring up to almost 3 cm in maximal AP dimension (series 2 image 48). No mediastinal adenopathy by size criteria. Thoracic aorta and central pulmonary arteries are normal in size. Esophagus is normal in caliber. No hiatal hernia. 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 No vertebral body compression fractures. No axillary or supraclavicular adenopathy by size criteria. Thyroid gland is is not well-visualized by this noncontrast CT. Abdomen: Visualized upper abdominal solid organs and bowel loops appear normal in the absence of contrast. IMPRESSION: Significant short term interval increase in size of a pericardial effusion now large measuring up to almost 3 cm in maximal AP dimension. Restriction of normal cardiac function may be associated. No definite interval increase in right pleural effusion, small interval increase in left pleural effusion. 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 Dictated by: Btehel Trinh M.D. on 06/10/2017 at 18:40 Approved by: Bethel Trinh M.D. on 06/10/2017 at 18:47 PROCEDURE: MRI BRAIN WITH AND WITHOUT CONTRAST ([id number]) INDICATIONS: dizziness x 2 months TECHNIQUE: Noncontrast axial T1 spin echo, axial T2 fast spin echo, sagittal and axial FLAIR, coronal T2 fast spin echo, axial gradient echo, axial diffusion and ADC through the brain. After the administration of contrast, axial and coronal 3D VIBE or T1 spin echo with fat saturation through the brain. COMPARISON: [facility], MR, MR BRAIN W&WO CON, 12/29/2016, 12:09. [facility], [place], [place] BONE SCAN WHOLE BODY, 12/29/2016, 12:58. FINDINGS: Image quality: Excellent. CSF Spaces: Basal cisterns are patent. No extra-axial fluid collections. Ventricles are normal in size and shape. Brain: No midline shift. No intracranial bleeds or masses. No abnormal intracranial enhancement. The brainstem appears normal. Diffusion-weighted images demonstrate no acute ischemic insults. No chronic ischemic insults. Normal intravascular flow voids are present. Note is made of stable appearing susceptibility artifact at the brainstem/cerebellar junction at the low posterior cranial fossa on the left, best seen centered on series 8 and 9 images 13. A mass or evidence of vascular malformation in this area is not seen on postcontrast imaging. This has not changed from initial MR from . Skull and face: Calvarial marrow is normal in signal but at the skull base the clivus and medial Kesha bones, left greater than right, show heterogeneous elevated contrast enhancement potentially representing metastatic disease without identifiable mass effect in those areas (for example, see series 12 image 21. Orbits appear normal. Sinuses: Sinuses and mastoids appear clear except for relatively prominent bilateral mastoid air cell fluid signal, right greater than left, and somewhat worsened on the left when compared to the 12/23 MRI. IMPRESSION: 1. Mastoid air cell opacification is quite prominent in this patient, right greater than left, and has mildly worsened from 12/29/16 on the left. It is possible that mastoiditis may relate to the clinical history of dizziness over several months. 2. Mild microvascular atherosclerotic change in the deep white matter of each hemisphere. No brain parenchymal mass or area of stroke or hemorrhage is found. 3. There is a small area of susceptibility artifact at the posterior cranial fossa at the junction of the medullary portion of the brainstem and the cerebellum. The contrast enhanced portion of the study does not show a vascular malformation at this site. 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 This is positioned near the origin of the seventh and eighth cranial nerves on the left, but has not changed from December of this year and reportedly the dizziness symptomatology has been present for 2 months (from information provided to the MR technologist). 4. The patient carries a history of prostate carcinoma, and there is no visualized evidence of metastatic disease to the brain parenchyma or meningeal surfaces. However, there is marrow contrast enhancement seen at the clivus and at the medial Kesha ridges bilaterally, left greater than right, and nuclear medicine bone scan from December of this year has documented extensive osseous metastatic disease including potentially extending cephalad into the skull base. Dictated by: Bethel Trinh M.D. on 06/10/2017 at 14:45 Approved by: Bethel Trinh M.D. on 06/10/2017 at 15:02 12-lead ECG According to [facility] and EKG image is not available to me at the time of this dictation: Sinus rhythm rate of 79 and her T waves V1 to V6 Q waves V1 and V2 T- wave inversions. Unchanged from prior. Cardiac Echo Impressions Echocardiogram Report Name: NIRAJ CLARK Study Date: 06/11/2017 Height: 70 in Hospital Exam Location: [facility] Weight: 159 lb Gender: Male BSA: 1.9 m2 : 1930 Age: 87 yrs BP: 128/67 mm Hg Reason For Study: Dyspnea Ordering Physician: HOSPITALIST [facility] Performed By: Chel Shore Referring Physician: Anthony Sahni Interpretation Summary The left ventricle is normal in size. The ejection fraction is estimated to be 55-60%. The right ventricle is normal size. The right ventricular systolic function is normal. There is mild mitral regurgitation. Compared to the prior echo study, there has been an increase in the severity of mitral regurgitation. There is a moderate to large pericardial effusion noted (Patient has chonically moderate to large pericardial effusion seen in 10/2014 echo as well. In this study, there appears to be mild worsening anterior to right ventricle. Based on right ventricle contractility pattern, there is some evidence of increased intrapericardial pressure, however, do not see classical tamponade pattern. IVC is not dilated. doppler profile across the david valve do not support tamponade.. BP: 128/67 mmHg. The IVC is of normal diameter and collapses greater than 50% with a sniff. This suggests a low right atrial pressure of 3 mm Hg. There are moderate-sized bilateral pleural effusions noted (New). Assessment & Plan #Persistent dizziness/lightheadedness 2 months, present on admission -Anemia vs Prostae cAncer MEts vs Orthostatic Hypotension as DDX -Brain MRI on 06/10 shwoed concern for physician assistant psychiatry att eh skull base. -By history is not positional. Worse since recent discharge and unclear etiology he currently is rate controlled upon admission here -Positive orthsotatics, recommended proper hydration and compression stockings, and if voiding quick neck moment -Appreciate cardiology consultation. The patient was dehydrated and orthostatics done did corroborate that diagnosis. He was started on IV fluids overnight -Patient received a unit of blood on 06/13 #Acute on chronic anemia, present on admission -Patient has been requiring episodic blood transfusions so at this point we will transfuse 1 unit PRBC -Guaiac stools: Negative -Check B12 folate iron levels: Within normal -Continue to monitor #Dyspnea, subacute, present on admission - Echo consfirmed worsening b/l pleural effusiosn -- Likely due to severe MR causing HF -Check venous blood gas which was essentially normal as noted above -CT of chest did show larger pericardial effusion and hence await results of echocardiogram -Cardiology consult as above -If his dyspnea gets worse we will request radiology guided thoracentesis to drain pleural effusions -Palliative care is consulted, patient is made DNR/DNI and 06/14, is agreeable to a visit with hospice -PT/OT upon patient's request #Possible obstructive sleep apnea, subacute times months, present on admission -nocturnal pulse oximetry #History of atrial fibrillation, chronic, present on admission -Continue his Coumadin therapy to be managed by pharmacy -Placed on telemetry -Check echocardiogram, see report above -Evening of June 11 patient did have conversion into atrial fibrillation at a rate of 100-110 and currently spontaneously went back into sinus rhythm #Possible healthcare associated pneumonia, acute, present on admission ruled out - CT of chest did not show any infiltrates pneumonic and hence IV antibiotics were stopped on June 12. 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, chronic, present on admission -Patient does not want any more chemotherapy at this point in time due to significant side effects -Alkaline phosphatase has been fairly stable but elevated -Palliative care is consulted, patient is made DNR/DNI and 06/14, is agreeable to a visit with hospice #DVT prophylaxis -Patient is on therapeutic Coumadin and will continue #CODE STATUS -Did discuss with patient and family and is DO NOT RESUSCITATE/DO NOT INTUBATE VTE Prophylaxis: Theraputic Anticoag with Warfarin, SCDs VTE Mechanical Devices: Intermittant Pneumatic CD Resuscitation Status: DNR/DNI:Do Not Resuscitate/Intubate ( is alternate decision-maker) Time spent 25 min Bhavya Ferreira DO Jun 13, 2017 21:53
[2017-06-14] VITALS (8 sets, daily range): BP systolic 111–134; BP diastolic 73–87; PULSE 86–100; RESP 16–20; O2SAT 95–98
[2017-06-14] MEDS: 0.9% Sodium Chloride 1,000 ML IV SCH ×2 (03:36→16:25)
--- NOTE | 2017-06-14 05:26 | NUR ---
Nurse Note NOC shift Pt is alert and oriented x3, HR 90's NSR on telemetry. He is RA, with continuos pulse oximetry at night, SPO2 stable through the night. Pt is able to communicate needs and calls appropriately. He was c/o back ache 8/10, not managed with tylenol, lidocaine, or heating pad. notified new orders for Morphine obtained. Pt reported pain relief after receiving morphine total 2mg.
[2017-06-14 05:37] LABS: Mean Corpuscular Volume 83.1 fL (81-100); Platelet Count 64 bil/L (150-400)
[2017-06-14 05:51] LABS: BASOPHILS % (AUTO) 1 % (0-3); EOSINOPHILS % (AUTO) 0 % (0-5); MONOCYTES % (AUTO) 5 % (4-12); NEUTROPHILS % (AUTO) 72 % (40-74)
[2017-06-14 06:43] LABS: INR 2.51 ratio
--- NOTE | 2017-06-14 08:05 | NUR ---
Palliative Care [id number] Referral received from Dr. Ferreira for goals of care conversation. Pt. was readmitted to [facility] on 06/10/17 after being discharged from [facility] on 06/07/17. Pt. was previously seen by Palliative Care team during his prior admission. Pt. is 87 year old man with history of metastatic prostate CA. Dr. Dotson has followed his care at [facility], and told pt. and family on 06/09/17 that they might consider Hospice/comfort care at this time due to his continued physical declines over the last several months. Pt. remains full-code at this time. Palliative Care to follow pt. at [facility] for goals of care discussion, symptom management and family support. Mervat Alvarado MSW, [facility]
--- NOTE | 2017-06-14 08:31 | PCM.CONPAL ---
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 He had previously received 4 courses of chemotherapy under the care of Dr. Dotson and decided to stop chemotherapy due to side effects. On his 06/04-06/07 admission, he was found to have atrial fibrillation with rapid ventricular rate, he was started on diltiazem drip which decreased his heart rate, converted to oral antiarrhythmic medications and and discharged when he became stable. He was readmitted 06/10 with persistent dizziness and some pain, and has been diagnosed with pneumonia. -Symptom management (Pain/other): 1. recommend ongoing tylenol, toradol for mild pain and prn 1mg IV morphine if pain is moderate to severe. Pt had two doses of morphine in last 12 hours, which were effective for him. This is the first time he has permitted use of opiates for his pain. Pt prefers less use of opiates because he thinks they make his dizziness, weakness and drowsiness worse. He is also somewhat worried that they make his hearing worse. 2. I discussed starting low dose steroid with the family, counselling that, when given once in a.m to treat bone pain and reduce inflammation and dizziness of mastoiditis-- it may be helpful. They have agreed with trying this medication. I will start it tomorrow: dexamethasone 06/15 at 4mg IV daily. -DPOA/Advanced Directives/POLST: Pt was FULL CODE, but after our discussion today 06/14, code changed to DNR/DNI. Family agrees that -Family/emotional support: Lives with , has 3 living children in the area including biological and stepchildren. His stepdaughter, Rosy Rios, is a respiratory therapist here at [facility]. We have been given permission to discuss his health with the daughters. conveys that they have a lot of support from family and friends in the area. Family Contact phone numbers: 1. Vika [phone] 2.Gudelia Monroy dtr [phone] 3. Elba Tony dtr [phone] 4. kristin Boykin, RT at [facility], at [phone]. Spiritual Needs: Family is Protestant, attend [employer] in [place]. Their crab meat processor, Father Alejandro Rivera, has been visiting patient regularly. Family Conference 06/13: 1. Present at patient's bedside were , Vika, dtr Sangita, kristin Gallegos , Sangita's and Dr. Pollock and Mervat CALDERA from Palliative Care. Pt was sleeping heavily and did not participate in this conversation. 2. FAMILY UNDERSTANDING OF DISEASE: improving with ongoing palliative care discussions over past two admissions. 3. DISEASE PROGRESSION/EVIDENCE OF DECLINE: family sees a steady decline in last few months since March and more severe debility in last week, but still tends to attribute this to pt's chemotherapy "making things worse." Vika also attributes husbands weakness between admissions as being due to "not getting enough fluid during the first admission/being sent home too soon." Dr. Pollock gave some education around progressive weakness occurring in late cancer stages and fluid resuscitation helps marginally when pt is not able to keep fluid in veins due to low albumin, (poor appetite). 4. SYMPTOM BURDEN: Weakness was most debilitating last admission, but also states that loss of appetite and ability to taste has caused him some distress. More distressed by dizziness this admission. 5. GOALS: Family originally met with [facility] on 06/06 and pt told us then that he wants to be comfortable, to go back home and re-habilitate "be built back up" to where he was before the weakness started. Now, they acknowledge that he tried this and has also put some final plans/arrangements in place. They feel he is now ready to consider going home with a hospice service to help his family take care of him. Mrs. Toledo accepts our offer to alert CM to set up an hospice information visit, likely for tomorrow. 6. HOPES/WORRIES: On 06/06, he stated he wanted to be independent and go about daily routine including self care. Worries he will not regain his strength. Today, he is not able to speak for himself due to exhaustion ( received small amount of pain medicine several hours before our meeting, but still sleeping heavily). FAMILY WISHES/VALUES: The patient is willing to be told truth about his illness, even if unpleasant? Yes. Does family want to know prognosis when it can be predicted, to better guide treatment decisions? Yes. What is quality of life for the patient: to be able to interact with their loved ones and friends, to travel, not to be bedbound, to be independent in taking care of themselves. Would patient choose quality of life over quantity of life? Quality of life. Would comfort care be more important than being awake and alert? Undetermined at this time. If patient is no longer alert and aware because of their illness, would you choose comfort for them? Yes. In the past, during 06/06 conference, patient stated if he was non-responsive to "just pull the plug." Problems: End of Life Preferences changed to DNR/DNI today 06/14 Goals of Care 06/06 discussion: patient would like to try rehabilitation to get to a level of healthy was previous to this last 2 weeks of decline. If after discharge and a trial of home health, his condition continues to get worse they will discuss palliative care and potentially hospice at that time. 06/14: is ready to speak to hospice about possible services in the home on discharge. Resuscitation Status Resuscitation Status: DNR/DNI:Do Not Resuscitate/Intubate . Advanced Care Planning Address: Code status change, Comfort care Pain: Mild Pt History History of Present Illness This is an 87-year-old male who has a history of metastatic prostate carcinoma to bones. He has a history of AF and past PE for which he is on Coumadin, and coronary artery disease status post PTCA. He presents with chief complaint of dizziness x 2 months. The symptoms started after he stopped chemotherapy. However he notes no improvement in the symptoms. His dizziness is more of a lightheadedness. He notes that it is not necessarily positional. It can happen when he sitting. He had a CT of chest on June 04 which was interpreted as no evidence for central pulmonary emboli, moderate bilateral dependent mobile pleural effusions which were new since December 2016 of uncertain etiology. He also has moderate chronic circumferential pericardial effusion. He also was seen widespread sclerotic bony metastases from prostate carcinoma. He was also admitted here from June 04 to June 07 with similar symptoms but was found to be atrial fibrillation with rapid ventricular response. Associated symptoms include generalized weakness (significant change from baseline causing trouble walking and doing activities daily) and diaphoresis. He has no chest pain, dyspnea, palpitations, fever,chills, or cough. He has had poor appetite and weakness and for this reason his chemotherapy (docetaxel) was stopped. Hospital Course: He was re-admitted 06/10 for further evaluation of dizziness with MRI brain with/without contrast, CT chest, ECHO and evaluate for possible healthcare associated pneumonia, which was later demonstrated by CXR. His Chest CT showed a significant short term interval increase in size of a pericardial effusion now large measuring up to almost 3 cm in maximal AP dimension. Restriction of normal cardiac function may be associated. 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 His CXR on 06/10 showed a left mid and lower lung pneumonia, possible slight pulmonary edema, possible slight medial right lung base pneumonia also. Extensive osteoblastic metastatic disease again noted. 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 on left (may also contribute to dizziness). He also has (previously known) skull metastases. Past Medical History Significant PMH Noted: Oncologist: Mauri Past Medical History Paroxysmal Atrial fibrillation on anticoagulations Metastatic castrate resistant prostate cancer, with bone metastases. history of sinus bradycardia Coronary artery disease s/p PTCA Hypertension Pericardial effusion Hyperlipidemia Protein calorie malnutrition Past Surgical History Family History Mother of unknown cancer 78 Brother has coronary artery disease Social History former smoker, lives with . At baseline patient is able to take care of himself, he typically walks from one room to another to sit down for long periods of time. They have admission patient was unable to hold himself up by standing or using his walker Medications Current Medications: Current Medications Diltiazem HCl 120 mg DAILY PO; Start 06/12/17 at 08:30; Status Cancel Diltiazem HCl 120 mg 120 mg DAILY PO Last administered on 06/13/17 08:29; Admin Dose 120 MG; Start 06/12/17 at 08:30 Sodium Chloride 1,000 ml @ 100 mls/hr Q10H IV Last administered on 06/14/17 03: 36; Admin Dose 100 MLS/HR; Start 06/12/17 at 17:30 Acetaminophen 650 mg Q4H PRN PO Last administered on 06/13/17 13:24; Admin Dose 650 MG; Start 06/13/17 at 09:20 Lidocaine 1 patch DAILY TOPICAL Last administered on 06/13/17 16:24; Admin Dose 1 PATCH; Start 06/13/17 at 16:05 Non-Formulary Medication 1 HS XX Last administered on 06/13/17 21:00; Admin Dose 1; Start 06/13/17 at 21:00 Morphine Sulfate 1-2MG Q4H PRN IVPUSH Last administered on 06/13/17 23:41; Admin Dose 1 MG; Start 06/13/17 at 21:40 Scheduled Diltiazem ER (Cardizem CD) 240 Mg Cap.er.24h 240 MG PO DAILY Ubidecarenone (Co Q-10) 100 Mg Capsule 100 MG PO DAILY Warfarin Sodium (Warfarin Sodium) 2.5 Mg Tablet 2.5 MG PO MON,WED,FRI Warfarin Sodium (Warfarin Sodium) 2.5 Mg Tablet 1.25 MG PO ,,MON,SUN Miscellaneous Medications Ascorbic Acid/Ascorbate Sodium (Vitamin C 500 mg Wafer) 500 Mg Wafer 1,000 MG PO Objective Findings Exam Vital Sign - Last Date Time Temp Pulse Resp B/P Pulse Ox O2 Delivery O2 Flow Rate FiO2 06/14/17 08:09 36.8 93 16 131/79 96 Room Air 134/87 111/73 06/10/17 14:14 2.50 Intake and Output 06/13/17 06/13/17 06/14/17 Cumulative From/Thru 15:00 23:00 07:00 06/10/17 09:44 - 06/14/17 06:32 Intake Total 400 ml 1934 ml 1245 ml 7196 ml Output Total 400 ml 700 ml 300 ml 3150 ml Balance 0 ml 1234 ml 945 ml 4046 ml Intake Oral 400 ml 622 ml 100 ml 3195 ml IV Total 991 ml 1145 ml 3680 ml Packed Cells 321 ml 321 ml Output Urine Total 400 ml 700 ml 300 ml 3150 ml # Bowel Movements 0 Objective General: Sitting on side of bed, no apparent distress. Alert. reports feeling dizzy while seated. HEENT: Normocephalic, atraumatic, EOMI grossly, No JVD, Mucous membranes moist. Decreased hearing bilaterally. Cardiovascular: Regular rate and rhythm, no clicks murmurs rubs, peripheral pulses 2/4 equal bilaterally Pulmonary: Clear to auscultation bilaterally, no W/R/R. Abdominal: Soft to palpation, bowel sounds present 4, no hepatosplenomegaly. Negative rebound. Extremities: No edema appreciated. No tenderness, asymmetry. MSK: Able to move extremities on their own volition, strength 5 out of 5 equal bilaterally to upper extremities. 3/5 LE hip and knee flexion. Psych: AOx3, Affect appropriate and congruent. Lab/Diagnostics Lab and Imaging results reviewed in detail in EMR. Time spent Total time 70 minutes; >50% face to face with patient and/or family, providing counselling regarding plans and recommendations, and in care coordination with his/her medical teams. Additional 30minutes in counseling on end of life care, advanced care planning, comfort care, hospice services. Liliane Pollock MD Jun 14, 2017 08:31 IV Total 991 ml 1145 ml 3680 ml Packed Cells 321 ml 321 ml Output Urine Total 400 ml 700 ml 300 ml 3150 ml # Bowel Movements 0 Objective General: Sitting on side of bed, no apparent distress. Alert. reports feeling dizzy while seated. HEENT: Normocephalic, atraumatic, EOMI grossly, No JVD, Mucous membranes moist. Decreased hearing bilaterally. Cardiovascular: Regular rate and rhythm, no clicks murmurs rubs, peripheral pulses 2/4 equal bilaterally Pulmonary: Clear to auscultation bilaterally, no W/R/R. Abdominal: Soft to palpation, bowel sounds present 4, no hepatosplenomegaly. Negative rebound. Extremities: No edema appreciated. No tenderness, asymmetry. MSK: Able to move extremities on their own volition, strength 5 out of 5 equal bilaterally to upper extremities. 3/5 LE hip and knee flexion. Psych: AOx3, Affect appropriate and congruent. Lab/Diagnostics Lab and Imaging results reviewed in detail in EMR. Time spent Total time [ ] minutes; >50% face to face with patient and/or family, providing counselling regarding plans and recommendations, and in care coordination with his/her medical teams. I also spent an additional [ ] minutes counseling for advanced care planning with the patient/the patients family/the surrogate decision maker. Liliane Pollock MD Jun 14, 2017 08:31 Intake and Output 06/13/17 06/13/17 06/14/17 Cumulative From/Thru 15:00 23:00 07:00 06/10/17 09:44 - 06/14/17 06:32 Intake Total 400 ml 1934 ml 1245 ml 7196 ml Output Total 400 ml 700 ml 300 ml 3150 ml Balance 0 ml 1234 ml 945 ml 4046 ml Intake Oral 400 ml 622 ml 100 ml 3195 ml IV Total 991 ml 1145 ml 3680 ml Packed Cells 321 ml 321 ml Output Urine Total 400 ml 700 ml 300 ml 3150 ml # Bowel Movements 0 Lab/Diagnostics Lab and Imaging results reviewed in detail in EMR. Time spent Total time [ ] minutes; >50% face to face with patient and/or family, providing counselling regarding plans and recommendations, and in care coordination with his/her medical teams. I also spent an additional [ ] minutes counseling for advanced care planning with the patient/the patients family/the surrogate decision maker. Liliane Pollock MD Jun 14, 2017 08:31 Output Urine Total 400 ml 700 ml 300 ml 3150 ml # Bowel Movements 0 Lab/Diagnostics Lab and Imaging results reviewed in detail in EMR. Time spent Total time [ ] minutes; >50% face to face with patient and/or family, providing counselling regarding plans and recommendations, and in care coordination with his/her medical teams. I also spent an additional [ ] minutes counseling for advanced care planning with the patient/the patients family/the surrogate decision maker. Liliane Pollock MD Jun 14, 2017 08:31
[2017-06-14] MEDS: Diltiazem CD 120 mg ER24 Capsule PO SCH (08:52)
[2017-06-14] MEDS: Lidocaine Topical 5% Patch TOPICAL SCH (08:52)
[2017-06-14] MEDS: Polyethylene Glycol (PEG) 17 Gm Powder PO PRN (08:53)
--- NOTE | 2017-06-14 11:33 | PCM.PHAPRO ---
Progress Warfarin dosing WARFARIN DOSING PER PHARMACY [facility] RWP RDM MH MH DFF Date -Jun 11-Jun 12-Jun 13-Jun 14-Jun INR 3.93 4.92 4.64 3.02 2.51 INR change 0.99 -0.28 -1.62 -0.51 Warf Dose HOLD hold HOLD 1.25MG 1.25 A/P -Therapeutic INR following held doses for supratherapeutic level. -Will continue warfarin 1.25mg this evening and monitor trend. Allen Latham,PharmD Allen Latham Jun 14, 2017 11:33
--- NOTE | 2017-06-14 12:45 | NUR ---
Palliative Care Family Care Team Meeting 06/14/1712:05PM D: This telegraphic typewriter installer and Palliative Care provider, Dr. Pollock, met with pt.'s , Vika, and daughter, Gudelia, to review pt.'s current clinical status and discuss goals for care moving forward. Also present was pt.'s step-daughter, Rosy, who works at [employer] [facility] in the Respiratory Therapy Department. Pt. appeared to be sleeping during the visit. Discussion focused on whether family is open to exploring Hospice services as an option for pt. due to his ongoing physical decline related to Stage 4 prostate CA. Pt. has mets to bone and is experiencing increased pain and dyspnea. Pt.'s oncologist, Dr. Dotson, recently shared with family that a transition to Hospice care is appropriate and that further treatment may not be possible. Per Vika, pt. has had a more rapid decline over the last few months, and she sees evidence that he is getting weaker physically. Vika shared she agrees Hospice care is appropriate at this time given pt.'s condition is known to be terminal. Other family agrees that in-home Hospice may be the best support moving forward. Family expressed that pt. wants to be home when he dies, and that he wants to ' naturally.' and daughter both agree that pt. should be made DNR/DNI at this time. This telegraphic typewriter installer shared with family that [facility] Case Management staff will speak with them about local choices for in-home hospice care when pt. discharges from [facility]. Vika expressed she wants to speak with pt. later today about having Hospice at home and does not want to have a Hospice informational visit before she talks with pt. Vika and Gudelia both acknowledge that pt.'s illness over the last 12 years (he was first diagnosed with prostate CA in 2004) has been a journey for their family. Vika shared that his more recent declining health feels sudden, but she knows he is closer to dying and she wants to have the right support for him as he approaches end of life. Per family, pt.'s staff design engineer, Alejandro Rivera ([facility] in [place]) is a good support to pt. and family. A: Family expresses sadness that pt. is now closer to end of life, and they share they want pt. to be comfortable during his dying process. Family seems very open to having Hospice care at home and pt.'s wants pt. to take part in the decision to engage home hospice care. She plans to speak with pt. later today when he is awake. P: This telegraphic typewriter installer let Case Management ENGINEERING MANAGER [employer]LECTRONICS, Elba Tejada, know that a Hospice information visit should be arranged after Vika has talked with pt. about having home hospice support when he discharges from [facility]. pt. and family will be choiced for Hospice provider tomorrow. JEFFERSON Kruger, [facility] Palliative Care Services
--- NOTE | 2017-06-14 17:46 | NUR ---
BM, Pain, Activity No recorded or reported BM this admit, stool softeners admin, 2 very loose stools produced this shift. Minimal pain reported this shift, Lidocaine patch in place, tylenol admin x1, family using essential oils, Kpad available but not in use at this moment. Orthostatic hypotension present, Up to chair and BSC with 1-2PA, reported some dizziness but tolerated.
[2017-06-15] VITALS (7 sets, daily range): BP systolic 131–146; BP diastolic 76–81; PULSE 82–95; RESP 20–22; O2SAT 97–99
[2017-06-15] MEDS: 0.9% Sodium Chloride 1,000 ML IV SCH ×2 (02:29→11:51)
--- NOTE | 2017-06-15 04:58 | NUR ---
Nurse Note NOC shift Pt remains alert and oriented denies chest pain. VItal signs remains stable. Pt had an episode of SOB, but O2 sats remained >92%. Pt was put on O2 2L and repositioned. He reported feeling better. He slept well through he night and received Tylenol for back ache with relief. Pt says he really wants to go home soon as he would like to "pass on at home". Hospice onboard with his care.
[2017-06-15] MEDS: Dexamethasone 4 mg/mL Inj IVPUSH SCH ×2 (06:01→07:08)
[2017-06-15 06:33] LABS: INR 2.28 ratio
--- NOTE | 2017-06-15 07:08 | NUR ---
NUTRITION FOLLOW-UP: Assess: 87 YO Male admitted with persistent dizziness / lightheadedness and acute on chronic anemia. Pt with metastatic prostate cancer who recently decided to stop chemotherapy, which oncology considers appropriate. In addition, he demonstrates worsening pleural and pericardial effusions. RD visited with pt and last admit regarding poor appetite and wt loss. She stated pt had lost 30 lbs in 3.5-4 months due to chemotherapy. Pt does not like supplements such as Ensure or Boost. Plan per palliative care team is to discharge home with hospice. PMHX: A-fib, prostate cancer with bone mets, sinus bradycardia, CAD, HTN, pericardial effusion, HLD. DIET: Heart Healthy. PO intake now consistently 25% trays. LABS: Reviewed. CO2 17, Cr 0.63, Ca 7.6, AST 60, Alk Phos 3406, Alb 2.4, B12 1497. MEDICATIONS: Reviewed. Decadron, morphine, coumadin. GI: BM x 2 (06/14). ANTHROPOMETRICS: WT: 71.8 kg, BMI 22.0 kg/m2. Admit wt: 68.1 kg. Last admit wt: 69.0 kg. Reported wt loss 30 lbs X 3 months. Per EMR, previous wt of 86.4 kg (11/18/16) = significant wt loss of 13.3 kg (15% of BW X 6 months). ESTIMATED NEEDS: CANCER Calories: 1041-2258 kcal/day (30-35 kcal/kg BW) Protein: 80-125 g/day (1.2-1.8 g/kg BW) NUTRITION DIAGNOSIS: 1) Severe malnutrition in context of acute on chronic illness related to decreased appetite, as evidenced by wt loss of 21.2% x 8 months and PO intake < 50% of needs x 5 days. INTERVENTION: 1) Will add Ensure clear to pt's meals to encourage adequate nutrition. Pt does not like regular Ensure or other thick supplements. 2) High calorie/protein nutrition therapy provided 06/05. 3) Recommend liberalization of diet from heart healthy to general. MONITOR/EVALUATE: PO intake, labs, weight, POC, GI/nutrition status. Follow per high nutrition risk guidelines.
--- NOTE | 2017-06-15 08:31 | NUR ---
Palliative Care ATTIC FANS MECHANIC Note178:25AM This consumer loan underwriter called pt.'s , Vika, to see if she had spoken with pt. yesterday evening about having hospice care once he returns home. Vika said that pt. has agreed to this and he understands that Hospice care is appropriate at this time. She and other family will come to [facility] later today and are willing to meet with a Hospice agency for an informational visit. This ATTIC FANS MECHANIC let Vika know that CM ATTIC FANS MECHANIC, Elba, will call her soon to review options for local Hospice providers. This consumer loan underwriter let JEFFERSON Recio, know that pt.'s is expecting a call to review Hospice options and to arrange for a Hospice informational visit today. JEFFERSON Kruger, [facility] Palliative Care Services
--- NOTE | 2017-06-15 09:07 | NUR ---
Social Work-continued d/c planning: Data:EMR reviewed. Pt is on day 5 of hospitalization for pneumonia per H&P. Pt is not medically stable. order received for Hospice. VERENICE spoke with Mervat PAULINO from Palliative care who states that she has spoken with Vika this morning and they are agreeable to Hospice information visit. VERENICE placed a call to Vika. SW went over Hospice choice list with and she would like to use [facility]. would like an information visit scheduled for early afternoon. VERENICE placed a call to Mayelin at Hospice. Mayelin to work on timing of information visit and call SW back with time. Once time of information visit is known, SW to update . SW will continue to follow. Assessment:Pt who would benefit from Hospice. Plan:VERENICE has spoken with Hospice and they are working on setting up information visit for pt and family today. Mayelin to work on timing of information visit and call SW back with time. Once time of information visit is known, VERENICE to update . VERENICE will continue to follow. JEFFERSON Zelaya Addendum: 06/15/17 at 0928 by PINO SEGURA SS VERENICE received a call back from Hospice and information visit has been arranged for 1230. VERENICE updated and she is agreeable to plan. JEFFERSON Zelaya
[2017-06-15] MEDS: Diltiazem CD 120 mg ER24 Capsule PO SCH (09:51)
[2017-06-15] MEDS: Lidocaine Topical 5% Patch TOPICAL SCH (09:51)
--- NOTE | 2017-06-15 11:59 | NUR ---
Evaluation completed. Please go to "Notes" then click on "Assessments and Notes" (bottom left corner of screen). Then select appropriate discipline tab on top of screen.
--- NOTE | 2017-06-15 12:31 | PCM.PHAPRO ---
Progress Warfarin dosing Jun 14-Jun 15-Jul 3.02 2.51 2.28 -1.62 -0.51 -0.23 1.25MG 1.25 2 Shaquille Pyle Pharm.D Jun 15, 2017 12:31
--- NOTE | 2017-06-15 15:08 | PCM.PALLBR ---
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 He had previously received 4 courses of chemotherapy under the care of Dr. Dotson and decided to stop chemotherapy due to side effects. On his 06/04-06/07 admission, he was found to have atrial fibrillation with rapid ventricular rate, he was started on diltiazem drip which decreased his heart rate, converted to oral antiarrhythmic medications and and discharged when he became stable. He was readmitted 06/10 with persistent dizziness and some pain, and has been diagnosed with pneumonia. -Symptom management (Pain/other): 1. recommend ongoing tylenol, toradol for mild pain and prn 1mg IV morphine if pain is moderate to severe. Pt had two doses of morphine in last 12 hours, which were effective for him. This is the first time he has permitted use of opiates for his pain. Pt prefers less use of opiates because he thinks they make his dizziness, weakness and drowsiness worse. He is also somewhat worried that they make his hearing worse. 2. I discussed starting low dose steroid with the family, counselling that, when given once in a.m to treat bone pain and reduce inflammation and dizziness of mastoiditis-- it may be helpful. They have agreed with trying this medication. Dexamethasone 4mg IV daily was started today, 06/15. Patient has not noticed any changes with this and we did mention to him that he might not feel it for another day or two. -DPOA/Advanced Directives/POLST: Pt was FULL CODE, but after our discussion on , code changed to DNR/DNI. Family agrees that -Family/emotional support: Lives with , has 3 living children in the area including biological and stepchildren. His stepdaughter, Rosy Rios, is a respiratory therapist here at [facility]. We have been given permission to discuss his health with the daughters. conveys that they have a lot of support from family and friends in the area. Family Contact phone numbers: 1. Vika [phone] 2.Gudelia leviner [phone] 3. Elba Tony dtr [phone] 4. kristin Boykin, RT at [facility], at [phone]. Spiritual Needs: Family is Muslim, attend [employer] in [place]. Their engineer, Father Alejandro Rivera, has been visiting patient regularly. Family Conference 06/13: 1. Present at patient's bedside were , Vika, dtreymundo Quesada, kristin Gallegos , Sangita's and Dr. Pollock and Mervat Alvarado SW from Palliative Care. Pt was sleeping heavily and did not participate in this conversation. 2. FAMILY UNDERSTANDING OF DISEASE: improving with ongoing palliative care discussions over past two admissions. 3. DISEASE PROGRESSION/EVIDENCE OF DECLINE: family sees a steady decline in last few months since March and more severe debility in last week, but still tends to attribute this to pt's chemotherapy "making things worse." Vika also attributes husbands weakness between admissions as being due to "not getting enough fluid during the first admission/being sent home too soon." Dr. Pollock gave some education around progressive weakness occurring in late cancer stages and fluid resuscitation helps marginally when pt is not able to keep fluid in veins due to low albumin, (poor appetite). 4. SYMPTOM BURDEN: Weakness was most debilitating last admission, but also states that loss of appetite and ability to taste has caused him some distress. More distressed by dizziness this admission. 5. GOALS: Family originally met with [facility] on 06/06 and pt told us then that he wants to be comfortable, to go back home and re-habilitate "be built back up" to where he was before the weakness started. Now, they acknowledge that he tried this and has also put some final plans/arrangements in place. They feel he is now ready to consider going home with a hospice service to help his family take care of him. Mrs. Toledo and his family had a Hospice information visit today, 06/15. They have signed consent forms for starting Hospice. Discharge planning will coordinate with [facility] for an open date for patient. 6. HOPES/WORRIES: On 06/06, he stated he wanted to be independent and go about daily routine including self care. Worries he will not regain his strength. 06/14/17, he is not able to speak for himself due to exhaustion ( received small amount of pain medicine several hours before our meeting, but still sleeping heavily). 06/15/17, PT worked with patient and he did have significant dizziness with standing. They plan to see them 1-2 more times. FAMILY WISHES/VALUES: The patient is willing to be told truth about his illness, even if unpleasant? Yes. Does family want to know prognosis when it can be predicted, to better guide treatment decisions? Yes. What is quality of life for the patient: to be able to interact with their loved ones and friends, to travel, not to be bedbound, to be independent in taking care of themselves. Would patient choose quality of life over quantity of life? Quality of life. Would comfort care be more important than being awake and alert? Undetermined at this time. If patient is no longer alert and aware because of their illness, would you choose comfort for them? Yes. In the past, during 06/06 conference, patient stated if he was non-responsive to "just pull the plug." Problems: End of Life Preferences changed to DNR/DNI today 06/14 Goals of Care 06/06 discussion: patient would like to try rehabilitation to get to a level of healthy was previous to this last 2 weeks of decline. If after discharge and a trial of home health, his condition continues to get worse they will discuss palliative care and potentially hospice at that time. 06/14: is ready to speak to hospice about possible services in the home on discharge. 06/15: Family has decided to sign up with hospice. Resuscitation Status Resuscitation Status: DNR/DNI:Do Not Resuscitate/Intubate ( is alternate decision-maker) Total time [ 25] minutes; >50% face to face with patient and/or family, providing counselling regarding plans and recommendations, and in care coordination with his/her medical teams. Attending Statement Dr. Pollock physically present and available for pt exam and interview and assessment of pain, along with resident, Dr. Leach. We discussed pt's management plan and I agree with the documentation above written by Dr. Leach. Palliative Brief Note Date of Service Jun 15, 2017 . Followup visit today with Dr. Pollock and Dr. Leach. Family was finishing with Hospice info visit in a different room. They have signed the consent forms for starting Hospice. Discharge planners will coordinate with [facility] for an open date for patient. We met with the patient and his son-in-law at bedside. Son-in-law's concern was about IV fluids once discharged as patient has required fluids repeatedly through previous hospitalizations and has had poor PO intake. It was explained that towards the end of life less fluids are required and that excess fluids may actually spread into the lungs and soft tissue. The patient was started on dexamethasone 4 mg IV this morning. He doesn't feel any noticeable changes at this time and none is noticed objectively. He discusses feeling weak and unable to move due to the weight of his blankets. We did note that on exam he was able to move his left lower extremity fairly well however did not feel capable of moving his right lower extremity. With passive movement he had discomfort at his right hip. Gaurav Leach DO Jun 15, 2017 14:11 Liliane Pollock MD Jun 15, 2017 15:13
--- NOTE | 2017-06-15 16:37 | NUR ---
Social Work-continued d/c planning: Data:EMR reviewed. Pt is on day 5 of hospitalization for pneumonia per H&P. Pt is not medically stable anticipate several more days. VERENICE updated by Mayelin with Hospice that pt and family have signed consents. Mayelin confirms that the soonest they can open with pt is on Wednesday 06/20 between 2-3pm. Mayelin states she can get DME delivered in the next day or two. Mayelin also informed SW that they can keep pt on the cancellation list and will call SW if anything opens up for pt. SW to follow up with MD in morning rounds to determine if pt can discharge prior to Hospice opening or will need to wait for open date. SW then to update family. SW will continue to follow. Assessment:Pt who would benefit from Hospice. Plan:Pt to discharge home on Hospice services. Hospice is not able to open with pt until Wednesday 06/20 between 2-3pm. SW to discuss with MD tomorrow to see if pt can discharge prior to Hospice opening or will need to wait for open date. VERENICE then to update family. SW will continue to follow. JEFFERSON Zelaya Addendum: 06/15/17 at 1645 by PINO SEGURA SS VERENICE also updated Anna that pt will likely be discharging home on Hospice services. JEFFERSON Zelaya
--- NOTE | 2017-06-15 16:38 | PCM.PNMED ---
Subjective Date of Service Jun 15, 2017 Subjective Patient's agreed to take him home on hospice, he is experiencing no change in his dizziness, still needing oxygen 1L. Hospice will not open till Mon. Family would like for him to be kept here at the hospital. Physical therapy has seen him and made recommendations for snf care vs hospice setting Exam Vital Signs Vital Sign - Last Date Time Temp Pulse Resp B/P Pulse Ox O2 Delivery O2 Flow Rate FiO2 06/15/17 06:17 95 06/15/17 04:51 36.4 22 138/81 97 Nasal Cannula 1.00 Intake and Output 06/14/17 06/14/17 06/15/17 Cumulative From/Thru 15:00 23:00 07:00 06/10/17 09:44 - 06/15/17 06:00 Intake Total 1889 ml 1328 ml 51942 ml Output Total 500 ml 3650 ml Balance 1389 ml 1328 ml 6763 ml Intake Oral 1144 ml 4339 ml IV Total 745 ml 1328 ml 5753 ml Packed Cells 321 ml Output Urine Total 500 ml 3650 ml # Bowel Movements 2 2 Exam Situational: Elderly male in no acute distress Head: Normocephalic atraumatic Chest: Some decreased breath sounds and crackles at his bases Cor: Regular rate and rhythm and no murmurs Abdomen: Soft nontender bowel sounds present Extremities: No pedal edema Psych:affect appropriate, negative for anxiety Skin: No rashes Neuro: Alert and oriented 3 IVs and Medications IV Fluids None Medications Reviewed: Medications were reviewed in detail Lab and Diagnostics Result Diagram: 06/14/17 0520 06/15/17 0543 X-Rays, CTs and MRIs PROCEDURE: X-RAY CHEST ONE VIEW, PORTABLE ([id number]) INDICATIONS: Shortness of breath TECHNIQUE: One view of the chest was acquired. COMPARISON: [facility], NM, NM BONE SCAN WHOLE BODY, 12/29/2016, 12: 58. [facility], CR, XR CHEST 1VW (PORTABLE), 06/03/2017, 23:47. [facility], CR, XR CHEST 2VW, 03/01/2017, 11:23. FINDINGS: Surgical changes and devices: None. Lungs and pleura: No pleural effusions or pneumothorax. Lungs are abnormal with what appears to be a mild pulmonary edema pattern and also left mid and lower lung pneumonia. There may be a slight degree of pneumonia the right lung base. Mediastinum: Mediastinal contours appear normal. Heart size is normal. Bones and chest wall: Previously present extensive suspicious bony lesions indicate presence of extensive metastatic disease, osteoblastic. Overlying soft tissues appear unremarkable. IMPRESSION: Left mid and lower lung pneumonia, possible slight pulmonary edema, possible slight medial right lung base pneumonia also. Extensive osteoblastic metastatic disease again noted. Dictated by: Bethel Trinh M.D. on 06/10/2017 at 10:35 Approved by: Bethel Trinh M.D. on 06/10/2017 at 10:37 PROCEDURE: CT CHEST WITHOUT CONTRAST ([id number]) INDICATIONS: dyspnea TECHNIQUE: Noncontrast 5 mm thick sections acquired from the pulmonary apices to the posterior costophrenic angles. 7 mm thick coronal and sagittal MIP reformats were then acquired. For radiation dose reduction, the following was used: automated exposure control, adjustment of mA and/or kV according to patient size. COMPARISON: None. FINDINGS: Image quality: Excellent. Lungs and pleura: No acute air space opacities that would suggest presence of pneumonia or metastatic disease but there is mild increased atelectasis at each lung base. There has been a small interval increase in the left pleural effusion but no definite change in the right pleural effusion from 06/04/17, and no interval development of pneumothorax. Central and peripheral airways are patent and normal in caliber. Mediastinum: Heart size is at the upper limits of normal. A significant change has occurred at the pericardium with a new significant pericardial effusion, measuring up to almost 3 cm in maximal AP dimension (series 2 image 48). No mediastinal adenopathy by size criteria. Thoracic aorta and central pulmonary arteries are normal in size. Esophagus is normal in caliber. No hiatal hernia. 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 No vertebral body compression fractures. No axillary or supraclavicular adenopathy by size criteria. Thyroid gland is is not well-visualized by this noncontrast CT. Abdomen: Visualized upper abdominal solid organs and bowel loops appear normal in the absence of contrast. IMPRESSION: Significant short term interval increase in size of a pericardial effusion now large measuring up to almost 3 cm in maximal AP dimension. Restriction of normal cardiac function may be associated. No definite interval increase in right pleural effusion, small interval increase in left pleural effusion. 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 Dictated by: Bethel Trinh M.D. on 06/10/2017 at 18:40 Approved by: Bethel Trinh M.D. on 06/10/2017 at 18:47 PROCEDURE: MRI BRAIN WITH AND WITHOUT CONTRAST ([id number]) INDICATIONS: dizziness x 2 months TECHNIQUE: Noncontrast axial T1 spin echo, axial T2 fast spin echo, sagittal and axial FLAIR, coronal T2 fast spin echo, axial gradient echo, axial diffusion and ADC through the brain. After the administration of contrast, axial and coronal 3D VIBE or T1 spin echo with fat saturation through the brain. COMPARISON: [facility], MR, MR BRAIN W&WO CON, 12/29/2016, 12:09. [facility], NM, NM BONE SCAN WHOLE BODY, 12/29/2016, 12:58. FINDINGS: Image quality: Excellent. CSF Spaces: Basal cisterns are patent. No extra-axial fluid collections. Ventricles are normal in size and shape. Brain: No midline shift. No intracranial bleeds or masses. No abnormal intracranial enhancement. The brainstem appears normal. Diffusion-weighted images demonstrate no acute ischemic insults. No chronic ischemic insults. Normal intravascular flow voids are present. Note is made of stable appearing susceptibility artifact at the brainstem/cerebellar junction at the low posterior cranial fossa on the left, best seen centered on series 8 and 9 images 13. A mass or evidence of vascular malformation in this area is not seen on postcontrast imaging. This has not changed from initial MR from . Skull and face: Calvarial marrow is normal in signal but at the skull base the clivus and medial Kesha bones, left greater than right, show heterogeneous elevated contrast enhancement potentially representing metastatic disease without identifiable mass effect in those areas (for example, see series 12 image 21. Orbits appear normal. Sinuses: Sinuses and mastoids appear clear except for relatively prominent bilateral mastoid air cell fluid signal, right greater than left, and somewhat worsened on the left when compared to the 12/23 MRI. IMPRESSION: 1. Mastoid air cell opacification is quite prominent in this patient, right greater than left, and has mildly worsened from 12/29/16 on the left. It is possible that mastoiditis may relate to the clinical history of dizziness over several months. 2. Mild microvascular atherosclerotic change in the deep white matter of each hemisphere. No brain parenchymal mass or area of stroke or hemorrhage is found. 3. There is a small area of susceptibility artifact at the posterior cranial fossa at the junction of the medullary portion of the brainstem and the cerebellum. The contrast enhanced portion of the study does not show a vascular malformation at this site. 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 This is positioned near the origin of the seventh and eighth cranial nerves on the left, but has not changed from December of this year and reportedly the dizziness symptomatology has been present for 2 months (from information provided to the MR technologist). 4. The patient carries a history of prostate carcinoma, and there is no visualized evidence of metastatic disease to the brain parenchyma or meningeal surfaces. However, there is marrow contrast enhancement seen at the clivus and at the medial Kesha ridges bilaterally, left greater than right, and nuclear medicine bone scan from December of this year has documented extensive osseous metastatic disease including potentially extending cephalad into the skull base. Dictated by: Bethel Trinh M.D. on 06/10/2017 at 14:45 Approved by: Bethel Trinh M.D. on 06/10/2017 at 15:02 12-lead ECG According to [facility]UR[facility] and EKG image is not available to me at the time of this dictation: Sinus rhythm rate of 79 and her T waves V1 to V6 Q waves V1 and V2 T- wave inversions. Unchanged from prior. Cardiac Echo Impressions Echocardiogram Report Name: NIRAJ CLARK Study Date: 06/11/2017 Height: 70 in Hospital Exam Location: [facility] Weight: 159 lb Gender: Male BSA: 1.9 m2 : 1930 Age: 87 yrs BP: 128/67 mm Hg Reason For Study: Dyspnea Ordering Physician: HOSPITALIST [facility] Performed By: Chel Shore Referring Physician: Anthony Sahni Interpretation Summary The left ventricle is normal in size. The ejection fraction is estimated to be 55-60%. The right ventricle is normal size. The right ventricular systolic function is normal. There is mild mitral regurgitation. Compared to the prior echo study, there has been an increase in the severity of mitral regurgitation. There is a moderate to large pericardial effusion noted (Patient has chonically moderate to large pericardial effusion seen in 10/2014 echo as well. In this study, there appears to be mild worsening anterior to right ventricle. Based on right ventricle contractility pattern, there is some evidence of increased intrapericardial pressure, however, do not see classical tamponade pattern. IVC is not dilated. doppler profile across the david valve do not support tamponade.. BP: 128/67 mmHg. The IVC is of normal diameter and collapses greater than 50% with a sniff. This suggests a low right atrial pressure of 3 mm Hg. There are moderate-sized bilateral pleural effusions noted (New). Assessment & Plan #Persistent dizziness/lightheadedness 2 months, present on admission stable -Anemia vs Prostae cancer Mets vs Orthostatic Hypotension as DDX -Brain MRI on 06/10 showed concern for mets at the skull base. -By history is not positional. Worse since recent discharge and unclear etiology he currently is rate controlled upon admission here -Positive orthostatics, recommended proper hydration and compression stockings, and if voiding quick neck moment -Appreciate cardiology consultation. The patient was dehydrated and orthostatics done did corroborate that diagnosis. -Patient received a unit of blood on 06/13. H&H remained stable - Continue PO dexamethasone --Discontinued IV fluids on 06/15 #Acute on chronic anemia, present on admission -Patient has been requiring episodic blood transfusions so at this point we will transfuse 1 unit PRBC -Guaiac stools: Negative -Check B12 folate iron levels: Not low -Continue to monitor #Dyspnea, subacute, present on admission not improving - Echo confirmed worsening b/l pleural effusion --Likely due to severe MR causing HF -Check venous blood gas which was essentially normal as noted above -CT of chest did show larger pericardial effusion and hence await results of echocardiogram -Cardiology consult as above -CXR is ordered on 06/15, shows: pulm edema and diffuse bone mets. No pleural effusions were noted. If his dyspnea gets worse we will request radiology guided thoracentesis to drain pleural effusions -Palliative care is consulted, patient is made DNR/DNI and 06/14, is agreeable to a visit with hospice -PT/OT upon patient's request: "If pt transitions to hospice, recommend assistance for transfers in and out of bed and use of urinal and BSC only at this time as pt has been unable to safely demonstrate ambulation. He requires up to min A for all transfers at this time. If pt does not transition to hospice, recommend discharge to SNF for further strengthening and functional mobility training as he is not at his baseline and would not be able to mobilize within his home based on symptoms. PT to see pt 1-2 times as plan of care continues to be determined and if rehab is the plan, will progress as pt tolerates. #Possible obstructive sleep apnea, subacute times months, present on admission -nocturnal pulse oximetry, 1L Oxygen PRN #History of atrial fibrillation, chronic, present on admission -Continue his Coumadin therapy to be managed by pharmacy -Check echocardiogram, see report above -Evening of June 11 patient did have conversion into atrial fibrillation at a rate of 100-110 and currently spontaneously went back into sinus rhythm -- Telemetry was discontinued on 06/15 #Possible healthcare associated pneumonia, acute, present on admission ruled out - CT of chest did not show any infiltrates pneumonic and hence IV antibiotics were stopped on June 12. 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, chronic, present on admission -Patient does not want any more chemotherapy at this point in time due to significant side effects -Alkaline phosphatase has been fairly stable but elevated -Palliative care is consulted, patient is made DNR/DNI and 06/15, and pt agree to start hospice care on 06/19 #DVT prophylaxis -Patient is on therapeutic Coumadin and will continue #CODE STATUS -Did discuss with patient and family and is DO NOT RESUSCITATE/DO NOT INTUBATE Pain Evaluation: Adequate Pain Control VTE Prophylaxis: Theraputic Anticoag with Warfarin, SCDs VTE Mechanical Devices: Intermittant Pneumatic CD Resuscitation Status: DNR/DNI:Do Not Resuscitate/Intubate ( is alternate decision-maker) Time spent 25 min Bhavya Ferreira DO Jun 15, 2017 07:32
--- NOTE | 2017-06-15 18:21 | DRSVH ---
PROCEDURE: X-RAY CHEST, TWO VIEWS ([id number]) INDICATIONS: check pleural effusions, patient dyspneic TECHNIQUE: 2 views of the chest were acquired. COMPARISON: [facility], CR, XR CHEST 1VW (PORTABLE), 06/10/2017, 9:52. [facility], CT, CT CHEST WO CON, 06/10/2017, 18:04. FINDINGS: Surgical changes and devices: None. Lungs and pleura: No definite new pleural effusions or pneumothorax. Lungs are edematous. Mediastinum: Mediastinal contours are normal. Heart size is normal. Bones and chest wall: No new suspicious bony abnormalities and there is extensive heterogeneity of t he osteoblastic marrow space disease previously documented, consistent with underlying prostate carci noma. Soft tissues appear unremarkable. IMPRESSION: Bilateral pulmonary edema pattern, extensive prostate carcinoma metastatic disease causi ng heterogeneous osteoblastic increased radiodensity within the axial and visualized appendicular ske leton. Dictated by: Bethel Trinh M.D. on 06/15/2017 at 18:18 Approved by: Bethel Trinh M.D. on 06/15/2017 at 18:19
--- NOTE | 2017-06-15 19:06 | NUR ---
Pt comfort Pt resting comfortably in bed. Denies pain all shift. Family present at bedside for majority of afternoon. Per discussion with , they did sign hospice contract today. Pt d/c from tele.
--- NOTE | 2017-06-16 02:28 | NUR ---
SLEEPING/COMFORT Family left before HS. Gave pt HS medications, made sure pt was comfortable. Hourly rounding in place, pt has appeared to be sleeping, pt has not used call light. Around 0200, pt can be heard moaning in bed. Entering room, pt c/o discomfort in bed and having not "slept a wink all night." Pt said he did not use call light because he did not want to wake anyone. Encouraged pt to use call light because it won't wake anyone up, and advocate for what he needs. Repositioned pt in bed, gave melatonin. Will reassess at 0300.
[2017-06-16 05:38] VITALS: BP 154/79; PULSE 75; RESP 20; O2SAT 96
[2017-06-16 07:10] LABS: INR 2.79 ratio
[2017-06-16] MEDS: Lidocaine Topical 5% Patch TOPICAL SCH (09:11)
[2017-06-16] MEDS: Diltiazem CD 120 mg ER24 Capsule PO SCH (09:13)
[2017-06-16] MEDS: Dexamethasone 4 mg/mL Inj IVPUSH SCH (09:14)
--- NOTE | 2017-06-16 09:20 | NUR ---
KADEN signed JEFFERSON Terrazas
--- NOTE | 2017-06-16 10:41 | NUR ---
Social Work: Continued d/c planning [facility] now [facility] opening for pt on Tuesday 06/19 between 2-3pm. JEFFERSON Terrazas
--- NOTE | 2017-06-16 10:51 | PCM.PALLBR ---
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 He had previously received 4 courses of chemotherapy under the care of Dr. Dotson and decided to stop chemotherapy due to side effects. On his 06/04-06/07 admission, he was found to have atrial fibrillation with rapid ventricular rate, he was started on diltiazem drip which decreased his heart rate, converted to oral antiarrhythmic medications and and discharged when he became stable. He was readmitted 06/10 with persistent dizziness and some pain, and has been diagnosed with pneumonia. -Symptom management (Pain/other): 1. recommend ongoing tylenol, toradol for mild pain and prn 1mg IV morphine if pain is moderate to severe. Pt had two doses of morphine in last 12 hours, which were effective for him. This is the first time he has permitted use of opiates for his pain. Pt prefers less use of opiates because he thinks they make his dizziness, weakness and drowsiness worse. He is also somewhat worried that they make his hearing worse. 2. on 06/14, Dr. Pollock discussed starting low dose steroid with the family, counselling that, when given once in a.m to treat bone pain and reduce inflammation and dizziness of mastoiditis-- it may be helpful. They have agreed with trying this medication. Dexamethasone 4mg IV daily was started 06/15. Today is day 2. 3. Continue prn melatonin for night restlessness, insomnia. If he continues to be wakeful at night, we might stop steroid. Will monitor this. -DPOA/Advanced Directives/POLST: Pt was FULL CODE on admission, but after our discussion on 06/14, code changed to DNR/DNI. -Family/emotional support: Lives with , has 3 living children in the area including biological and stepchildren. His stepdaughter, Rosy Rios, is a respiratory therapist here at [facility]. We have been given permission to discuss his health with the daughters. conveys that they have a lot of support from family and friends in the area. Family Contact phone numbers: 1. Vika [phone] 2.Gudelia Monroy dtr [phone] 3. Elba Tony dtr [phone] 4. kristin Boykin, RT at [facility], at [phone]. Spiritual Needs: Family is [employer], attend [employer] in [place]. Their printed circuit designer, Father Alejandro Rivera, has been visiting patient regularly. Family Conference 06/13: 1. Present at patient's bedside were , Vika, dtr Sangita, kristin Gallegos , Sangita's and Dr. Pollock and Mervat Alvarado SW from Palliative Care. Pt was sleeping heavily and did not participate in this conversation. 2. FAMILY UNDERSTANDING OF DISEASE: improving with ongoing palliative care discussions over past two admissions. 3. DISEASE PROGRESSION/EVIDENCE OF DECLINE: family sees a steady decline in last few months since March and more severe debility in last week, but still tends to attribute this to pt's chemotherapy "making things worse." Vika also attributes husbands weakness between admissions as being due to "not getting enough fluid during the first admission/being sent home too soon." Dr. Pollock gave some education around progressive weakness occurring in late cancer stages and fluid resuscitation helps marginally when pt is not able to keep fluid in veins due to low albumin, (poor appetite). 4. SYMPTOM BURDEN: Weakness was most debilitating last admission, but also states that loss of appetite and ability to taste has caused him some distress. More distressed by dizziness this admission. 5. GOALS: Family originally met with [facility] on 06/06 and pt told us then that he wants to be comfortable, to go back home and re-habilitate "be built back up" to where he was before the weakness started. Now, they acknowledge that he tried this and has also put some final plans/arrangements in place. They feel he is now ready to consider going home with a hospice service to help his family take care of him. Mrs. Toledo and his family had a Hospice information visit 06/15. They signed consent forms for starting Hospice. Discharge planning will coordinate with [facility] for an open date for patient. 6. HOPES/WORRIES: On 06/06, he stated he wanted to be independent and go about daily routine including self care. Worries he will not regain his strength. 06/14/17, he is not able to speak for himself due to exhaustion ( received small amount of pain medicine several hours before our meeting, but still sleeping heavily). 06/15/17, PT worked with patient and he did have significant dizziness with standing. They plan to see them again. FAMILY WISHES/VALUES: The patient is willing to be told truth about his illness, even if unpleasant? Yes. Does family want to know prognosis when it can be predicted, to better guide treatment decisions? Yes. What is quality of life for the patient: to be able to interact with their loved ones and friends, to travel, not to be bedbound, to be independent in taking care of themselves. Would patient choose quality of life over quantity of life? Quality of life. Would comfort care be more important than being awake and alert? Undetermined at this time. If patient is no longer alert and aware because of their illness, would you choose comfort for them? Yes. In the past, during 06/06 conference, patient stated if he was non-responsive to "just pull the plug." Problems: End of Life Preferences changed to DNR/DNI today 06/14 Goals of Care 06/06 discussion: patient would like to try rehabilitation to get to a level of healthy was previous to this last 2 weeks of decline. If after discharge and a trial of home health, his condition continues to get worse they will discuss palliative care and potentially hospice at that time. 06/14: is ready to speak to hospice about possible services in the home on discharge. 06/15: Family has decided to sign up with hospice. Resuscitation Status Resuscitation Status: DNR/DNI:Do Not Resuscitate/Intubate ( is alternate decision-maker) Total time 25 minutes; >50% face to face with patient and/or family, providing counselling regarding plans and recommendations, and in care coordination with his/her medical teams. Palliative Brief Note Date of Service Jun 16, 2017 . Followup visit today with Dr. Pollock. Pt asleep. No family in room. Family met with Hospice 06/15 and signed consents for service. Hospice can open at their home on 06/20, 2-3pm. The patient was started on dexamethasone 4 mg IV 06/15. Today is the second dose. He still seems to sleep most of the day and night. He tends to intermittently moan while sleeping. It is not clear whether this is a sign of pain. His brow is not furrowed and when awakened, he denies pain. Per nursing reports, he was restless last night and needed a sleeper. General: sleep in bed, one pillow behind head, no apparent distress. HEENT: Normocephalic, atraumatic, eyes closed, No JVD, Mucous membranes dry. Mouth breathing. Cardiovascular: Regular rate and rhythm, Pulmonary: Clear Abdominal: Soft to palpation, bowel sounds present 4, Extremities: No edema appreciated. Liliane Pollock MD Jun 16, 2017 10:51 Liliane Pollock MD Jun 16, 2017 10:51 Liliane Pollock MD Jun 16, 2017 10:51
[2017-06-16 12:25] VITALS: BP 142/67; PULSE 79; RESP 20
--- NOTE | 2017-06-16 17:13 | NUR ---
Social Work: Continued d/c planning Data: Pt is on day 6 of hospitalization. EMR reviewed. Pt discussed in multidisciplinary rounds. BLENDING TANK TENDER HELPER asked MD if pt can d/c before hospice can open, which is on Tuesday 06/19 between 2-3pm. MD states that he is not medically stable for d/c yet and requested BLENDING TANK TENDER HELPER check in on caregiving situation in the home. BLENDING TANK TENDER HELPER met with pt and family at bedside. Pt and family state that they have caregiving covered in the home with pt's spouse and a lot of local family who will help out as needed. BLENDING TANK TENDER HELPER asked if they would like private pay caregiving choices, they declined at this time. BLENDING TANK TENDER HELPER encouraged them to call BLENDING TANK TENDER HELPER if they change their mind, phone number on board. BLENDING TANK TENDER HELPER will continue to follow. Assessment: Pt to open with hospice soon. Plan: Pt will d/c home via POV when medically stable with hospice to open on Tuesday 06/19 between 2-3pm. Pt and family aware of this time. Pt's family arranging in home caregiving with family. BLENDING TANK TENDER HELPER will continue to follow. JEFFERSON Terrazas
--- NOTE | 2017-06-16 18:03 | NUR ---
Comfort: Patient stated that he is having no pain. He was given Zofran x1 for his nausea with good relief. Patient was able to stand with assistance to use his commode chair to have BM . Patient has had several family members in his room off and on throughout the day.
[2017-06-16 20:23] VITALS: BP 152/80; PULSE 73; RESP 20; O2SAT 98
[2017-06-16] MEDS ORDERED: Phytonadione (Adult) 10 mg/1 mL Inj PO ONE (22:30)
--- NOTE | 2017-06-16 22:32 | PCM.PNMED ---
Subjective Date of Service Jun 16, 2017 Subjective Patient is seen and examined.. No new concerns. Hospice will be opening on Monday Exam Vital Signs Vital Sign - Last Date Time Temp Pulse Resp B/P Pulse Ox O2 Delivery O2 Flow Rate FiO2 06/16/17 20:23 36.5 73 20 152/80 98 Nasal Cannula 1.00 Intake and Output 06/15/17 06/15/17 06/16/17 Cumulative From/Thru 15:00 23:00 07:00 06/10/17 09:44 - 06/16/17 06:34 Intake Total 0 ml 2464 ml 500 ml 77890 ml Output Total 200 ml 1100 ml 750 ml 5700 ml Balance -200 ml 1364 ml -250 ml 7677 ml Intake Oral 0 ml 1425 ml 500 ml 6264 ml IV Total 1039 ml 6792 ml Packed Cells 321 ml Output Urine Total 200 ml 650 ml 750 ml 5250 ml Urine/Stool Mix 450 ml 450 ml # Bowel Movements 0 0 2 Lab and Diagnostics Result Diagram: 06/14/17 0520 06/15/17 0543 X-Rays, CTs and MRIs PROCEDURE: X-RAY CHEST ONE VIEW, PORTABLE ([id number]) INDICATIONS: Shortness of breath TECHNIQUE: One view of the chest was acquired. COMPARISON: [facility], ID, NM BONE SCAN WHOLE BODY, 12/29/2016, 12: 58. [facility], CR, XR CHEST 1VW (PORTABLE), 06/03/2017, 23:47. [facility], CR, XR CHEST 2VW, 03/01/2017, 11:23. FINDINGS: Surgical changes and devices: None. Lungs and pleura: No pleural effusions or pneumothorax. Lungs are abnormal with what appears to be a mild pulmonary edema pattern and also left mid and lower lung pneumonia. There may be a slight degree of pneumonia the right lung base. Mediastinum: Mediastinal contours appear normal. Heart size is normal. Bones and chest wall: Previously present extensive suspicious bony lesions indicate presence of extensive metastatic disease, osteoblastic. Overlying soft tissues appear unremarkable. IMPRESSION: Left mid and lower lung pneumonia, possible slight pulmonary edema, possible slight medial right lung base pneumonia also. Extensive osteoblastic metastatic disease again noted. Dictated by: Bethel Trinh M.D. on 06/10/2017 at 10:35 Approved by: Bethel Trinh M.D. on 06/10/2017 at 10:37 PROCEDURE: CT CHEST WITHOUT CONTRAST ([id number]) INDICATIONS: dyspnea TECHNIQUE: Noncontrast 5 mm thick sections acquired from the pulmonary apices to the posterior costophrenic angles. 7 mm thick coronal and sagittal MIP reformats were then acquired. For radiation dose reduction, the following was used: automated exposure control, adjustment of mA and/or kV according to patient size. COMPARISON: None. FINDINGS: Image quality: Excellent. Lungs and pleura: No acute air space opacities that would suggest presence of pneumonia or metastatic disease but there is mild increased atelectasis at each lung base. There has been a small interval increase in the left pleural effusion but no definite change in the right pleural effusion from 06/04/17, and no interval development of pneumothorax. Central and peripheral airways are patent and normal in caliber. Mediastinum: Heart size is at the upper limits of normal. A significant change has occurred at the pericardium with a new significant pericardial effusion, measuring up to almost 3 cm in maximal AP dimension (series 2 image 48). No mediastinal adenopathy by size criteria. Thoracic aorta and central pulmonary arteries are normal in size. Esophagus is normal in caliber. No hiatal hernia. 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 No vertebral body compression fractures. No axillary or supraclavicular adenopathy by size criteria. Thyroid gland is is not well-visualized by this noncontrast CT. Abdomen: Visualized upper abdominal solid organs and bowel loops appear normal in the absence of contrast. IMPRESSION: Significant short term interval increase in size of a pericardial effusion now large measuring up to almost 3 cm in maximal AP dimension. Restriction of normal cardiac function may be associated. No definite interval increase in right pleural effusion, small interval increase in left pleural effusion. 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 Dictated by: Bethel Trinh M.D. on 06/10/2017 at 18:40 Approved by: Bethel Trinh M.D. on 06/10/2017 at 18:47 PROCEDURE: MRI BRAIN WITH AND WITHOUT CONTRAST ([id number]) INDICATIONS: dizziness x 2 months TECHNIQUE: Noncontrast axial T1 spin echo, axial T2 fast spin echo, sagittal and axial FLAIR, coronal T2 fast spin echo, axial gradient echo, axial diffusion and ADC through the brain. After the administration of contrast, axial and coronal 3D VIBE or T1 spin echo with fat saturation through the brain. COMPARISON: [facility], MR, MR BRAIN W&WO CON, 12/29/2016, 12:09. [facility], NM, NM BONE SCAN WHOLE BODY, 12/29/2016, 12:58. FINDINGS: Image quality: Excellent. CSF Spaces: Basal cisterns are patent. No extra-axial fluid collections. Ventricles are normal in size and shape. Brain: No midline shift. No intracranial bleeds or masses. No abnormal intracranial enhancement. The brainstem appears normal. Diffusion-weighted images demonstrate no acute ischemic insults. No chronic ischemic insults. Normal intravascular flow voids are present. Note is made of stable appearing susceptibility artifact at the brainstem/cerebellar junction at the low posterior cranial fossa on the left, best seen centered on series 8 and 9 images 13. A mass or evidence of vascular malformation in this area is not seen on postcontrast imaging. This has not changed from initial MR from . Skull and face: Calvarial marrow is normal in signal but at the skull base the clivus and medial Kesha bones, left greater than right, show heterogeneous elevated contrast enhancement potentially representing metastatic disease without identifiable mass effect in those areas (for example, see series 12 image 21. Orbits appear normal. Sinuses: Sinuses and mastoids appear clear except for relatively prominent bilateral mastoid air cell fluid signal, right greater than left, and somewhat worsened on the left when compared to the 12/23 MRI. IMPRESSION: 1. Mastoid air cell opacification is quite prominent in this patient, right greater than left, and has mildly worsened from 12/29/16 on the left. It is possible that mastoiditis may relate to the clinical history of dizziness over several months. 2. Mild microvascular atherosclerotic change in the deep white matter of each hemisphere. No brain parenchymal mass or area of stroke or hemorrhage is found. 3. There is a small area of susceptibility artifact at the posterior cranial fossa at the junction of the medullary portion of the brainstem and the cerebellum. The contrast enhanced portion of the study does not show a vascular malformation at this site. 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 This is positioned near the origin of the seventh and eighth cranial nerves on the left, but has not changed from December of this year and reportedly the dizziness symptomatology has been present for 2 months (from information provided to the MR technologist). 4. The patient carries a history of prostate carcinoma, and there is no visualized evidence of metastatic disease to the brain parenchyma or meningeal surfaces. However, there is marrow contrast enhancement seen at the clivus and at the medial Kesha ridges bilaterally, left greater than right, and nuclear medicine bone scan from December of this year has documented extensive osseous metastatic disease including potentially extending cephalad into the skull base. Dictated by: Bethel Trinh M.D. on 06/10/2017 at 14:45 Approved by: Bethel Trinh M.D. on 06/10/2017 at 15:02 12-lead ECG According to [facility] and EKG image is not available to me at the time of this dictation: Sinus rhythm rate of 79 and her T waves V1 to V6 Q waves V1 and V2 T- wave inversions. Unchanged from prior. Cardiac Echo Impressions Echocardiogram Report Name: NIRAJ CLARK Study Date: 06/11/2017 Height: 70 in Hospital Exam Location: [facility] Weight: 159 lb Gender: Male BSA: 1.9 m2 : 1930 Age: 87 yrs BP: 128/67 mm Hg Reason For Study: Dyspnea Ordering Physician: HOSPITALIST [facility] Performed By: Chel Shore Referring Physician: Anthony Sahni Interpretation Summary The left ventricle is normal in size. The ejection fraction is estimated to be 55-60%. The right ventricle is normal size. The right ventricular systolic function is normal. There is mild mitral regurgitation. Compared to the prior echo study, there has been an increase in the severity of mitral regurgitation. There is a moderate to large pericardial effusion noted (Patient has chonically moderate to large pericardial effusion seen in 10/2014 echo as well. In this study, there appears to be mild worsening anterior to right ventricle. Based on right ventricle contractility pattern, there is some evidence of increased intrapericardial pressure, however, do not see classical tamponade pattern. IVC is not dilated. doppler profile across the david valve do not support tamponade.. BP: 128/67 mmHg. The IVC is of normal diameter and collapses greater than 50% with a sniff. This suggests a low right atrial pressure of 3 mm Hg. There are moderate-sized bilateral pleural effusions noted (New). Assessment & Plan #Dyspnea, subacute, present on admission not improving - Echo confirmed worsening b/l pleural effusion --Likely due to severe MR causing HF -Check venous blood gas which was essentially normal as noted above -CT of chest did show larger pericardial effusion and hence await results of echocardiogram -Cardiology consult as above -CXR is ordered on 06/15, shows: pulm edema and diffuse bone mets. No pleural effusions were noted. If his dyspnea gets worse we will request radiology guided thoracentesis to drain pleural effusions -Palliative care is consulted, patient is made DNR/DNI and 06/14, is agreeable to a visit with hospice -PT/OT upon patient's request: "If pt transitions to hospice, recommend assistance for transfers in and out of bed and use of urinal and BSC only at this time as pt has been unable to safely demonstrate ambulation. He requires up to min A for all transfers at this time. If pt does not transition to hospice, recommend discharge to SNF for further strengthening and functional mobility training as he is not at his baseline and would not be able to mobilize within his home based on symptoms. PT to see pt 1-2 times as plan of care continues to be determined and if rehab is the plan, will progress as pt tolerates. -- Called radiology and interventional radiology for thoracentesis. They agreed to do the procedure however INR is therapeutic. -- Discontinued Coumadin, I have discussed this with both patient and his . They are agreeable with the plan. Will give him by mouth vitamin K. To help reverse the INR. -- Unlikely that radiology would do a thoracentesis over the weekend, we will have to consider doing that procedure on Monday. #Possible obstructive sleep apnea, subacute times months, present on admission -nocturnal pulse oximetry, 1L Oxygen PRN #Persistent dizziness/lightheadedness 2 months, present on admission stable -Anemia vs Prostae cancer Mets vs Orthostatic Hypotension as DDX -Brain MRI on 06/10 showed concern for mets at the skull base. -By history is not positional. Worse since recent discharge and unclear etiology he currently is rate controlled upon admission here -Positive orthostatics, recommended proper hydration and compression stockings, and if voiding quick neck moment -Appreciate cardiology consultation. The patient was dehydrated and orthostatics done did corroborate that diagnosis. -Patient received a unit of blood on 06/13. H&H remained stable - Continue PO dexamethasone --Discontinued IV fluids on 06/15 #Acute on chronic anemia, present on admission -Patient has been requiring episodic blood transfusions so at this point we will transfuse 1 unit PRBC -Guaiac stools: Negative -Check B12 folate iron levels: Not low -Continue to monitor #History of atrial fibrillation, chronic, present on admission -Discontinued Coumadin as above -Consider putting patient on aspirin at the time of discharge -Check echocardiogram, see report above -Evening of June 11 patient did have conversion into atrial fibrillation at a rate of 100-110 and currently spontaneously went back into sinus rhythm -- Telemetry was discontinued on 06/15 #Possible healthcare associated pneumonia, acute, present on admission ruled out - CT of chest did not show any infiltrates pneumonic and hence IV antibiotics were stopped on June 12. 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 Pain Evaluation: Adequate Pain Control VTE Prophylaxis: Theraputic Anticoag with Warfarin, SCDs VTE Mechanical Devices: Intermittant Pneumatic CD Resuscitation Status: DNR/DNI:Do Not Resuscitate/Intubate ( is alternate decision-maker) Time spent 25 minutes Bhavya Ferreira DO Jun 16, 2017 22:32
[2017-06-16] MEDS: LORazepam 0.5 mg Tablet PO PRN (22:42)
--- NOTE | 2017-06-17 04:58 | NUR ---
pain Pt woke up moaning and c/o back pain. 1mg Morphine given with good relief. able to sleep w/o s/s of discomfort. hourly rounding done. bed alarm on for safety.
[2017-06-17 05:17] VITALS: BP 149/81; PULSE 72; RESP 18; O2SAT 98
[2017-06-17 06:56] LABS: INR 2.23 ratio
[2017-06-17] MEDS: Dexamethasone 4 mg/mL Inj IVPUSH SCH (08:55)
[2017-06-17] MEDS: Diltiazem CD 120 mg ER24 Capsule PO SCH (08:56)
[2017-06-17] MEDS: Lidocaine Topical 5% Patch TOPICAL SCH (09:04)
[2017-06-17 10:36] LABS: INR 1.9 ratio
[2017-06-17 12:33] VITALS: BP 136/72; PULSE 80; RESP 20; O2SAT 96
--- NOTE | 2017-06-17 16:58 | NUR ---
Social Work: Readiness for Discharge/Multidisciplinary D: Pt is on day 6 of hospitalization. EMR reviewed. Pt discussed in multidisciplinary rounds. [employer] asked MD if pt can d/c before hospice can open, which is on Tuesday 06/19 between 2-3pm. MD states that he is not medically stable for discharge yet but can discharge on Monday no later than 1300 to open with hospice. Pt and family state that they have caregiving covered in the home with pt's spouse and a lot of local family who will help out as needed. SW asked if they would like private pay caregiving choices, they declined at this time. SW encouraged them to call SW if they change their mind, phone number on board. SW will continue to follow. A: Pt to open with hospice and family caregiver on 06/19 between 2-3pm. Pt will need to discharge to open with hospice no later than 1300 on Monday. P: Pt will discharge home via POV with hospice to open on Tuesday 06/19 between 2-3pm. Pt and family aware of this time. Pt's family arranging in home caregiving with family. VERENICE updated Zacarias from [facility] on pt's status and pt unlikely to resume [facility]. Zacarias agreeable. VERENICE will continue to follow. JEFFERSON Hernadez
[2017-06-17 17:17] VITALS: BP 144/76; PULSE 70; RESP 19; O2SAT 97
[2017-06-17] MEDS: LORazepam 0.5 mg Tablet PO PRN (20:14)
[2017-06-17 20:19] VITALS: BP 156/79; PULSE 69; RESP 20; O2SAT 97
[2017-06-17] MEDS ORDERED: Phytonadione (Adult) 10 mg/1 mL Inj PO ONE (21:15)
--- NOTE | 2017-06-17 21:20 | PCM.PNMED ---
Subjective Date of Service Jun 17, 2017 Subjective Patient is stoic as always. Family in the room. Discussed coumadin reversal for thoracentesis. Hospice will visit patient at home Mon-. No new concerns. Exam Vital Signs Vital Sign - Last Date Time Temp Pulse Resp B/P Pulse Ox O2 Delivery O2 Flow Rate FiO2 06/17/17 12:33 36.5 80 20 136/72 96 Nasal Cannula 1.00 Intake and Output 06/16/17 06/16/17 06/17/17 Cumulative From/Thru 15:00 23:00 07:00 06/10/17 09:44 - 06/17/17 05:58 Intake Total 672 ml 200 ml 21612 ml Output Total 525 ml 650 ml 6875 ml Balance 147 ml -450 ml 7374 ml Intake Oral 672 ml 200 ml 7136 ml IV Total 6792 ml Packed Cells 321 ml Output Urine Total 525 ml 650 ml 6425 ml Urine/Stool Mix 450 ml # Bowel Movements 1 3 Exam Situational: Elderly male in no acute distress Head: Normocephalic atraumatic Chest: Some decreased breath sounds anteriorly and crackles at his bases when auscultated laterally Cor: Regular rate and rhythm and no murmurs Abdomen: Soft nontender bowel sounds present Extremities: No pedal edema Psych:affect appropriate, negative for anxiety Skin: No rashes Neuro: Alert and oriented 3 Lab and Diagnostics Result Diagram: 06/14/17 0520 06/15/17 0543 X-Rays, CTs and MRIs PROCEDURE: X-RAY CHEST ONE VIEW, PORTABLE ([id number]) INDICATIONS: Shortness of breath TECHNIQUE: One view of the chest was acquired. COMPARISON: [facility], [place], [place] BONE SCAN WHOLE BODY, 12/29/2016, 12: 58. [facility], [place], XR CHEST 1VW (PORTABLE), 06/03/2017, 23:47. [facility], CR, XR CHEST 2VW, 03/01/2017, 11:23. FINDINGS: Surgical changes and devices: None. Lungs and pleura: No pleural effusions or pneumothorax. Lungs are abnormal with what appears to be a mild pulmonary edema pattern and also left mid and lower lung pneumonia. There may be a slight degree of pneumonia the right lung base. Mediastinum: Mediastinal contours appear normal. Heart size is normal. Bones and chest wall: Previously present extensive suspicious bony lesions indicate presence of extensive metastatic disease, osteoblastic. Overlying soft tissues appear unremarkable. IMPRESSION: Left mid and lower lung pneumonia, possible slight pulmonary edema, possible slight medial right lung base pneumonia also. Extensive osteoblastic metastatic disease again noted. Dictated by: Bethel Trinh M.D. on 06/10/2017 at 10:35 Approved by: Bethel Trinh M.D. on 06/10/2017 at 10:37 PROCEDURE: CT CHEST WITHOUT CONTRAST ([id number]) INDICATIONS: dyspnea TECHNIQUE: Noncontrast 5 mm thick sections acquired from the pulmonary apices to the posterior costophrenic angles. 7 mm thick coronal and sagittal MIP reformats were then acquired. For radiation dose reduction, the following was used: automated exposure control, adjustment of mA and/or kV according to patient size. COMPARISON: None. FINDINGS: Image quality: Excellent. Lungs and pleura: No acute air space opacities that would suggest presence of pneumonia or metastatic disease but there is mild increased atelectasis at each lung base. There has been a small interval increase in the left pleural effusion but no definite change in the right pleural effusion from 06/04/17, and no interval development of pneumothorax. Central and peripheral airways are patent and normal in caliber. Mediastinum: Heart size is at the upper limits of normal. A significant change has occurred at the pericardium with a new significant pericardial effusion, measuring up to almost 3 cm in maximal AP dimension (series 2 image 48). No mediastinal adenopathy by size criteria. Thoracic aorta and central pulmonary arteries are normal in size. Esophagus is normal in caliber. No hiatal hernia. 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 No vertebral body compression fractures. No axillary or supraclavicular adenopathy by size criteria. Thyroid gland is is not well-visualized by this noncontrast CT. Abdomen: Visualized upper abdominal solid organs and bowel loops appear normal in the absence of contrast. IMPRESSION: Significant short term interval increase in size of a pericardial effusion now large measuring up to almost 3 cm in maximal AP dimension. Restriction of normal cardiac function may be associated. No definite interval increase in right pleural effusion, small interval increase in left pleural effusion. 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 Dictated by: Bethel Trinh M.D. on 06/10/2017 at 18:40 Approved by: Bethel Trinh M.D. on 06/10/2017 at 18:47 PROCEDURE: MRI BRAIN WITH AND WITHOUT CONTRAST ([id number]) INDICATIONS: dizziness x 2 months TECHNIQUE: Noncontrast axial T1 spin echo, axial T2 fast spin echo, sagittal and axial FLAIR, coronal T2 fast spin echo, axial gradient echo, axial diffusion and ADC through the brain. After the administration of contrast, axial and coronal 3D VIBE or T1 spin echo with fat saturation through the brain. COMPARISON: [facility], [place], MR BRAIN W&WO CON, 12/29/2016, 12:09. [facility], [place], [place] BONE SCAN WHOLE BODY, 12/29/2016, 12:58. FINDINGS: Image quality: Excellent. CSF Spaces: Basal cisterns are patent. No extra-axial fluid collections. Ventricles are normal in size and shape. Brain: No midline shift. No intracranial bleeds or masses. No abnormal intracranial enhancement. The brainstem appears normal. Diffusion-weighted images demonstrate no acute ischemic insults. No chronic ischemic insults. Normal intravascular flow voids are present. Note is made of stable appearing susceptibility artifact at the brainstem/cerebellar junction at the low posterior cranial fossa on the left, best seen centered on series 8 and 9 images 13. A mass or evidence of vascular malformation in this area is not seen on postcontrast imaging. This has not changed from initial MR from . Skull and face: Calvarial marrow is normal in signal but at the skull base the clivus and medial Kesha bones, left greater than right, show heterogeneous elevated contrast enhancement potentially representing metastatic disease without identifiable mass effect in those areas (for example, see series 12 image 21. Orbits appear normal. Sinuses: Sinuses and mastoids appear clear except for relatively prominent bilateral mastoid air cell fluid signal, right greater than left, and somewhat worsened on the left when compared to the 12/23 MRI. IMPRESSION: 1. Mastoid air cell opacification is quite prominent in this patient, right greater than left, and has mildly worsened from 12/29/16 on the left. It is possible that mastoiditis may relate to the clinical history of dizziness over several months. 2. Mild microvascular atherosclerotic change in the deep white matter of each hemisphere. No brain parenchymal mass or area of stroke or hemorrhage is found. 3. There is a small area of susceptibility artifact at the posterior cranial fossa at the junction of the medullary portion of the brainstem and the cerebellum. The contrast enhanced portion of the study does not show a vascular malformation at this site. 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 This is positioned near the origin of the seventh and eighth cranial nerves on the left, but has not changed from December of this year and reportedly the dizziness symptomatology has been present for 2 months (from information provided to the MR technologist). 4. The patient carries a history of prostate carcinoma, and there is no visualized evidence of metastatic disease to the brain parenchyma or meningeal surfaces. However, there is marrow contrast enhancement seen at the clivus and at the medial Kesha ridges bilaterally, left greater than right, and nuclear medicine bone scan from December of this year has documented extensive osseous metastatic disease including potentially extending cephalad into the skull base. Dictated by: Bethel Trinh M.D. on 06/10/2017 at 14:45 Approved by: Bethel Trinh M.D. on 06/10/2017 at 15:02 12-lead ECG According to [facility] and EKG image is not available to me at the time of this dictation: Sinus rhythm rate of 79 and her T waves V1 to V6 Q waves V1 and V2 T- wave inversions. Unchanged from prior. Cardiac Echo Impressions Echocardiogram Report Name: NIRAJ CLARK Study Date: 06/11/2017 Height: 70 in Hospital Exam Location: [facility] Weight: 159 lb Gender: Male BSA: 1.9 m2 : 1930 Age: 87 yrs BP: 128/67 mm Hg Reason For Study: Dyspnea Ordering Physician: [facility] Performed By: Chel Shore Referring Physician: Anthony Sahni Interpretation Summary The left ventricle is normal in size. The ejection fraction is estimated to be 55-60%. The right ventricle is normal size. The right ventricular systolic function is normal. There is mild mitral regurgitation. Compared to the prior echo study, there has been an increase in the severity of mitral regurgitation. There is a moderate to large pericardial effusion noted (Patient has chonically moderate to large pericardial effusion seen in 10/2014 echo as well. In this study, there appears to be mild worsening anterior to right ventricle. Based on right ventricle contractility pattern, there is some evidence of increased intrapericardial pressure, however, do not see classical tamponade pattern. IVC is not dilated. doppler profile across the david valve do not support tamponade.. BP: 128/67 mmHg. The IVC is of normal diameter and collapses greater than 50% with a sniff. This suggests a low right atrial pressure of 3 mm Hg. There are moderate-sized bilateral pleural effusions noted (New). Assessment & Plan #Dyspnea, subacute, present on admission not improving - Echo confirmed worsening b/l pleural effusion --Likely due to severe MR causing HF -Check venous blood gas which was essentially normal as noted above -CT of chest did show larger pericardial effusion and hence await results of echocardiogram -Cardiology consult as above -CXR is ordered on 06/15, shows: pulm edema and diffuse bone mets. No pleural effusions were noted. If his dyspnea gets worse we will request radiology guided thoracentesis to drain pleural effusions -Palliative care is consulted, patient is made DNR/DNI and 06/14, is agreeable to a visit with hospice -PT/OT upon patient's request: "If pt transitions to hospice, recommend assistance for transfers in and out of bed and use of urinal and BSC only at this time as pt has been unable to safely demonstrate ambulation. He requires up to min A for all transfers at this time. If pt does not transition to hospice, recommend discharge to SNF for further strengthening and functional mobility training as he is not at his baseline and would not be able to mobilize within his home based on symptoms. PT to see pt 1-2 times as plan of care continues to be determined and if rehab is the plan, will progress as pt tolerates. -- Called radiology and interventional radiology for thoracentesis. They agreed to do the procedure however INR is therapeutic. -- 06/16 Discontinued Coumadin, I have discussed this with both patient and his . They are agreeable with the plan. Gave him by mouth vitamin Kg 5 m. To help reverse the INR. -- Unlikely that radiology would do a thoracentesis over the weekend, we will have to consider doing that procedure on Monday. -- INR 1.90, Second dose of vitamin K PO 5 mg 06/17 night, cont to monitor #Possible obstructive sleep apnea, subacute times months, present on admission -nocturnal pulse oximetry, 1L Oxygen PRN #Persistent dizziness/lightheadedness 2 months, present on admission stable -Anemia vs Prostae cancer Mets vs Orthostatic Hypotension as DDX -Brain MRI on 06/10 showed concern for mets at the skull base. -By history is not positional. Worse since recent discharge and unclear etiology he currently is rate controlled upon admission here -Positive orthostatics, recommended proper hydration and compression stockings, and if voiding quick neck moment -Appreciate cardiology consultation. The patient was dehydrated and orthostatics done did corroborate that diagnosis. -Patient received a unit of blood on 06/13. H&H remained stable - Continue PO dexamethasone --Discontinued IV fluids on 06/15 #Acute on chronic anemia, present on admission -Patient has been requiring episodic blood transfusions so at this point we will transfuse 1 unit PRBC -Guaiac stools: Negative -Check B12 folate iron levels: Not low -Continue to monitor #History of atrial fibrillation, chronic, present on admission -Discontinued Coumadin as above -Consider putting patient on aspirin at the time of discharge -Check echocardiogram, see report above -Evening of June 11 patient did have conversion into atrial fibrillation at a rate of 100-110 and currently spontaneously went back into sinus rhythm -Telemetry was discontinued on 06/15 #Possible healthcare associated pneumonia, acute, present on admission ruled out - CT of chest did not show any infiltrates pneumonic and hence IV antibiotics were stopped on June 12. 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 Plan to discuss thoracentesis after INR is < 1.5 VTE Prophylaxis: Theraputic Anticoag with Warfarin, SCDs VTE Mechanical Devices: Intermittant Pneumatic CD Resuscitation Status: DNR/DNI:Do Not Resuscitate/Intubate ( is alternate decision-maker) Time spent 25 min Bhavya Ferreira DO Jun 17, 2017 16:13
--- NOTE | 2017-06-17 22:10 | NUR ---
Thoracentesis: Patient was scheduled to have a Thoracentesis tomorrow or Monday. His INR is 1.9 now and a dose of Vitamin K+ will be given as ordered tonight to bring patients INR down for the scheduled procedure. Hourly rounding continues and rounding as needed for patients comfort and needs.
[2017-06-18 05:40] VITALS: BP 156/83; PULSE 69; RESP 20; O2SAT 95
--- NOTE | 2017-06-18 06:48 | NUR ---
pain Pt woke up moaning. agreed to take 1mg of Morphine -effective. Slept w/o s/s of discomfort.
[2017-06-18 07:35] LABS: INR 1.27 ratio
--- NOTE | 2017-06-18 09:34 | DRSVH ---
PROCEDURE: X-RAY CHEST ONE VIEW ([id number]) INDICATIONS: 87 year-old male with metastatic prostate carcinoma, dyspnea and pleural effusions. TECHNIQUE: One view of the chest was acquired. COMPARISON: [facility], CR, XR CHEST 2VW, 06/15/2017, 16:59. [facility], CT, CT CHEST WO CON, 06/10/2017, 18:04. [facility], CR, XR CHEST 1VW (PORTABLE), 06/10/2017, 9:52. [facility], CT, CT ANGIO CHEST PE, 06/04/2017, 2:36. [facility], CR, X R CHEST 1VW (PORTABLE), 06/03/2017, 23:47. [facility], CR, XR CHEST 2VW, 03/01/2017, 11:23 . FINDINGS: Surgical changes and devices: None. Lungs and pleura: Small bibasilar subpulmonic pleural effusions are again noted. No pneumothorax. The re is persistent retrocardiac opacity. Mediastinum: Mediastinal contours appear normal. Heart size is normal. Bones and chest wall: Widespread sclerotic bony metastases are again noted. Overlying soft tissues a ppear unremarkable. IMPRESSION: 1. Persistent retrocardiac atelectasis, aspiration, or pneumonia. 2. Persistent bibasilar small subpulmonic pleural effusions. 3. Widespread sclerotic prostate carcinoma metastases again noted. Dictated by: Bull Mendes M.D. on 06/18/2017 at 9:30 Approved by: Bull Mendes M.D. on 06/18/2017 at 9:33
[2017-06-18] MEDS: Diltiazem CD 120 mg ER24 Capsule PO SCH (10:33)
[2017-06-18] MEDS: Dexamethasone 4 mg/mL Inj IVPUSH SCH (10:34)
[2017-06-18] MEDS: Lidocaine Topical 5% Patch TOPICAL SCH (10:36)
[2017-06-18 13:06] VITALS: BP 153/74; PULSE 72; RESP 19; O2SAT 97
--- NOTE | 2017-06-18 14:28 | NUR ---
Social Work: Continued Discharge Planning/Multidisciplinary Rounds D: EMR reviewed. Pt discussed in multidisciplinary rounds. Pt to receive Thoracocentesis tonight or tomorrow. VERENICE updated MD that pt will need to have procedure as early in the morning as possible. Pt is to open with [facility] between 2-3pm 06/19. confirmed that she will request procedure to be done today or first thing in the morning on 06/19 and is aware of pt's hospice opening date. VERENICE received T/C from Letha at [facility] confirming hospice open time. VERENICE explained procedure that will be done tomorrow (procedure necessary for comfort care) and that pt may have delayed opening. VERENICE confirmed that if there is any delay due to procedure, SW will update hospice. Letha stated she would leave a note with Chris and hospice will work with pt's opening time if pt's discharge is delayed due to procedure. A: Pt for whom Hospice is medically necessary. P: SW to check-in with MD in the multidisciplinary rounds regarding Thoracocentesis procedure and ensure procedure is completed and pt will be ready to open with hospice between 2-3pm. Hospice aware of potential delay. VERENICE updated MD on pt's need to have procedure completed early in order to discharge in time for hospice. SW to update hospice if pt's discharge is delayed. VERENICE will continue to follow. JEFFERSON Hernadez
--- NOTE | 2017-06-18 20:35 | PCM.PNMED ---
Subjective Date of Service Jun 18, 2017 Subjective Patient is seen and examined. He is his usual stoic self. INR is 1.7 today. No new concerns Exam Vital Signs Vital Sign - Last Date Time Temp Pulse Resp B/P Pulse Ox O2 Delivery O2 Flow Rate FiO2 06/18/17 13:06 36.3 72 19 153/74 97 Room Air 06/17/17 17:17 1.00 Intake and Output 06/17/17 06/17/17 06/18/17 Cumulative From/Thru 15:00 23:00 07:00 06/10/17 09:44 - 06/18/17 06:54 Intake Total 536 ml 100 ml 09693 ml Output Total 950 ml 1100 ml 8925 ml Balance -414 ml -1000 ml 5960 ml Intake Oral 536 ml 100 ml 7772 ml IV Total 6792 ml Packed Cells 321 ml Output Urine Total 950 ml 1100 ml 8475 ml Urine/Stool Mix 450 ml # Bowel Movements 0 0 3 Exam Situational: Elderly male in no acute distress Head: Normocephalic atraumatic Chest: Some decreased breath sounds anteriorly and crackles at his bases when auscultated laterally Cor: Regular rate and rhythm and no murmurs Abdomen: Soft nontender bowel sounds present Extremities: No pedal edema Psych:affect appropriate, negative for anxiety Skin: No rashes Neuro: Alert and oriented 3 IVs and Medications Medications Reviewed: Medications were reviewed in detail Lab and Diagnostics Result Diagram: 06/18/17 1344 06/15/17 0543 X-Rays, CTs and MRIs PROCEDURE: X-RAY CHEST ONE VIEW, PORTABLE ([id number]) INDICATIONS: Shortness of breath TECHNIQUE: One view of the chest was acquired. COMPARISON: [facility], NM, NM BONE SCAN WHOLE BODY, 12/29/2016, 12: 58. [facility], CR, XR CHEST 1VW (PORTABLE), 06/03/2017, 23:47. [facility], CR, XR CHEST 2VW, 03/01/2017, 11:23. FINDINGS: Surgical changes and devices: None. Lungs and pleura: No pleural effusions or pneumothorax. Lungs are abnormal with what appears to be a mild pulmonary edema pattern and also left mid and lower lung pneumonia. There may be a slight degree of pneumonia the right lung base. Mediastinum: Mediastinal contours appear normal. Heart size is normal. Bones and chest wall: Previously present extensive suspicious bony lesions indicate presence of extensive metastatic disease, osteoblastic. Overlying soft tissues appear unremarkable. IMPRESSION: Left mid and lower lung pneumonia, possible slight pulmonary edema, possible slight medial right lung base pneumonia also. Extensive osteoblastic metastatic disease again noted. Dictated by: Bethel Trinh M.D. on 06/10/2017 at 10:35 Approved by: Bethel Trinh M.D. on 06/10/2017 at 10:37 PROCEDURE: CT CHEST WITHOUT CONTRAST ([id number]) INDICATIONS: dyspnea TECHNIQUE: Noncontrast 5 mm thick sections acquired from the pulmonary apices to the posterior costophrenic angles. 7 mm thick coronal and sagittal MIP reformats were then acquired. For radiation dose reduction, the following was used: automated exposure control, adjustment of mA and/or kV according to patient size. COMPARISON: None. FINDINGS: Image quality: Excellent. Lungs and pleura: No acute air space opacities that would suggest presence of pneumonia or metastatic disease but there is mild increased atelectasis at each lung base. There has been a small interval increase in the left pleural effusion but no definite change in the right pleural effusion from 06/04/17, and no interval development of pneumothorax. Central and peripheral airways are patent and normal in caliber. Mediastinum: Heart size is at the upper limits of normal. A significant change has occurred at the pericardium with a new significant pericardial effusion, measuring up to almost 3 cm in maximal AP dimension (series 2 image 48). No mediastinal adenopathy by size criteria. Thoracic aorta and central pulmonary arteries are normal in size. Esophagus is normal in caliber. No hiatal hernia. 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 No vertebral body compression fractures. No axillary or supraclavicular adenopathy by size criteria. Thyroid gland is is not well-visualized by this noncontrast CT. Abdomen: Visualized upper abdominal solid organs and bowel loops appear normal in the absence of contrast. IMPRESSION: Significant short term interval increase in size of a pericardial effusion now large measuring up to almost 3 cm in maximal AP dimension. Restriction of normal cardiac function may be associated. No definite interval increase in right pleural effusion, small interval increase in left pleural effusion. 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 Dictated by: Bethel Trinh M.D. on 06/10/2017 at 18:40 Approved by: Bethel Trinh M.D. on 06/10/2017 at 18:47 PROCEDURE: MRI BRAIN WITH AND WITHOUT CONTRAST ([id number]) INDICATIONS: dizziness x 2 months TECHNIQUE: Noncontrast axial T1 spin echo, axial T2 fast spin echo, sagittal and axial FLAIR, coronal T2 fast spin echo, axial gradient echo, axial diffusion and ADC through the brain. After the administration of contrast, axial and coronal 3D VIBE or T1 spin echo with fat saturation through the brain. COMPARISON: [facility], MR, MR BRAIN W&WO CON, 12/29/2016, 12:09. [facility], NM, NM BONE SCAN WHOLE BODY, 12/29/2016, 12:58. FINDINGS: Image quality: Excellent. CSF Spaces: Basal cisterns are patent. No extra-axial fluid collections. Ventricles are normal in size and shape. Brain: No midline shift. No intracranial bleeds or masses. No abnormal intracranial enhancement. The brainstem appears normal. Diffusion-weighted images demonstrate no acute ischemic insults. No chronic ischemic insults. Normal intravascular flow voids are present. Note is made of stable appearing susceptibility artifact at the brainstem/cerebellar junction at the low posterior cranial fossa on the left, best seen centered on series 8 and 9 images 13. A mass or evidence of vascular malformation in this area is not seen on postcontrast imaging. This has not changed from initial MR from . Skull and face: Calvarial marrow is normal in signal but at the skull base the clivus and medial Kesha bones, left greater than right, show heterogeneous elevated contrast enhancement potentially representing metastatic disease without identifiable mass effect in those areas (for example, see series 12 image 21. Orbits appear normal. Sinuses: Sinuses and mastoids appear clear except for relatively prominent bilateral mastoid air cell fluid signal, right greater than left, and somewhat worsened on the left when compared to the 12/23 MRI. IMPRESSION: 1. Mastoid air cell opacification is quite prominent in this patient, right greater than left, and has mildly worsened from 12/29/16 on the left. It is possible that mastoiditis may relate to the clinical history of dizziness over several months. 2. Mild microvascular atherosclerotic change in the deep white matter of each hemisphere. No brain parenchymal mass or area of stroke or hemorrhage is found. 3. There is a small area of susceptibility artifact at the posterior cranial fossa at the junction of the medullary portion of the brainstem and the cerebellum. The contrast enhanced portion of the study does not show a vascular malformation at this site. 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 This is positioned near the origin of the seventh and eighth cranial nerves on the left, but has not changed from December of this year and reportedly the dizziness symptomatology has been present for 2 months (from information provided to the MR technologist). 4. The patient carries a history of prostate carcinoma, and there is no visualized evidence of metastatic disease to the brain parenchyma or meningeal surfaces. However, there is marrow contrast enhancement seen at the clivus and at the medial Kesha ridges bilaterally, left greater than right, and nuclear medicine bone scan from December of this year has documented extensive osseous metastatic disease including potentially extending cephalad into the skull base. Dictated by: Bethel Trinh M.D. on 06/10/2017 at 14:45 Approved by: Bethel Trinh M.D. on 06/10/2017 at 15:02 12-lead ECG According to [facility] and EKG image is not available to me at the time of this dictation: Sinus rhythm rate of 79 and her T waves V1 to V6 Q waves V1 and V2 T- wave inversions. Unchanged from prior. Cardiac Echo Impressions Echocardiogram Report Name: NIRAJ CLARK Study Date: 06/11/2017 Height: 70 in Hospital Exam Location: [facility] Weight: 159 lb Gender: Male BSA: 1.9 m2 : 1930 Age: 87 yrs BP: 128/67 mm Hg Reason For Study: Dyspnea Ordering Physician: [facility] Performed By: Chel Shore Referring Physician: Anthony Sahni Interpretation Summary The left ventricle is normal in size. The ejection fraction is estimated to be 55-60%. The right ventricle is normal size. The right ventricular systolic function is normal. There is mild mitral regurgitation. Compared to the prior echo study, there has been an increase in the severity of mitral regurgitation. There is a moderate to large pericardial effusion noted (Patient has chonically moderate to large pericardial effusion seen in 10/2014 echo as well. In this study, there appears to be mild worsening anterior to right ventricle. Based on right ventricle contractility pattern, there is some evidence of increased intrapericardial pressure, however, do not see classical tamponade pattern. IVC is not dilated. doppler profile across the david valve do not support tamponade.. BP: 128/67 mmHg. The IVC is of normal diameter and collapses greater than 50% with a sniff. This suggests a low right atrial pressure of 3 mm Hg. There are moderate-sized bilateral pleural effusions noted (New). Assessment & Plan #Dyspnea, subacute, present on admission not improving - Echo confirmed worsening b/l pleural effusion --Likely due to severe MR causing HF -Check venous blood gas which was essentially normal as noted above -CT of chest did show larger pericardial effusion and hence await results of echocardiogram -Cardiology consult as above -CXR is ordered on 06/15, shows: pulm edema and diffuse bone mets. No pleural effusions were noted. If his dyspnea gets worse we will request radiology guided thoracentesis to drain pleural effusions -Palliative care is consulted, patient is made DNR/DNI and 06/14, is agreeable to a visit with hospice -PT/OT upon patient's request: "If pt transitions to hospice, recommend assistance for transfers in and out of bed and use of urinal and BSC only at this time as pt has been unable to safely demonstrate ambulation. He requires up to min A for all transfers at this time. If pt does not transition to hospice, recommend discharge to SNF for further strengthening and functional mobility training as he is not at his baseline and would not be able to mobilize within his home based on symptoms. PT to see pt 1-2 times as plan of care continues to be determined and if rehab is the plan, will progress as pt tolerates. -- Called radiology and interventional radiology for thoracentesis. They agreed to do the procedure however INR is therapeutic. -- 06/16 Discontinued Coumadin, I have discussed this with both patient and his . They are agreeable with the plan. Gave him by mouth vitamin Kg 5 m. To help reverse the INR. -- Unlikely that radiology would do a thoracentesis over the weekend, we will have to consider doing that procedure on Monday. -- Second dose of vitamin K PO 5 mg 06/17 night,INR 1. 27 06/18 -- Ordered ultrasound-guided thoracentesis, contacted radiology who agreed to do the procedure 06/18 #Possible obstructive sleep apnea, subacute times months, present on admission -nocturnal pulse oximetry, 1L Oxygen PRN #Persistent dizziness/lightheadedness 2 months, present on admission stable -Anemia vs Prostae cancer Mets vs Orthostatic Hypotension as DDX -Brain MRI on 06/10 showed concern for mets at the skull base. -By history is not positional. Worse since recent discharge and unclear etiology he currently is rate controlled upon admission here -Positive orthostatics, recommended proper hydration and compression stockings, and if voiding quick neck moment -Appreciate cardiology consultation. The patient was dehydrated and orthostatics done did corroborate that diagnosis. -Patient received a unit of blood on 06/13. H&H remained stable - Continue PO dexamethasone --Discontinued IV fluids on 06/15 #Acute on chronic anemia, present on admission -Patient has been requiring episodic blood transfusions so at this point we will transfuse 1 unit PRBC -Guaiac stools: Negative -Check B12 folate iron levels: Not low -Continue to monitor #History of atrial fibrillation, chronic, present on admission -Discontinued Coumadin as above -Consider putting patient on aspirin at the time of discharge -Check echocardiogram, see report above -Evening of June 11 patient did have conversion into atrial fibrillation at a rate of 100-110 and currently spontaneously went back into sinus rhythm -Telemetry was discontinued on 06/15 #Possible healthcare associated pneumonia, acute, present on admission ruled out - CT of chest did not show any infiltrates pneumonic and hence IV antibiotics were stopped on June 12. 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 Patient underwent thoracentesis as his INR was 1.7 and 06/18. Discharge home on hospice on 06/19/ VTE Prophylaxis: Theraputic Anticoag with Warfarin, SCDs VTE Mechanical Devices: Intermittant Pneumatic CD Resuscitation Status: DNR/DNI:Do Not Resuscitate/Intubate ( is alternate decision-maker) Time spent 25 minutes Bhavya Ferreira DO Jun 18, 2017 20:35
--- NOTE | 2017-06-18 20:45 | DRSVH ---
PROCEDURE: X-RAY CHEST ONE VIEW, PORTABLE ([id number]) INDICATIONS: 87-year-old male status post right therapeutic thoracentesis. TECHNIQUE: One view of the chest was acquired. COMPARISON: [facility], CR, XR CHEST 1VW, 06/18/2017, 8:51. [facility], CR, XR CHEST 2VW, 06/15/2017, 16:59. [facility], CR, XR CHEST 1VW (PORTABLE), 06/10/2017, 9:52 . FINDINGS: Surgical changes and devices: None. Lungs and pleura: There is scant residual right pleural effusion. No pneumothorax. Small dependent le ft pleural effusion is also less apparent. No acute airspace opacities. Mediastinum: Mediastinal contours appear normal. Heart size is normal. There is aortic atheroscler osis. Bones and chest wall: Multiple sclerotic bone metastases are again noted. Overlying soft tissues [place] ear unremarkable. IMPRESSION: No pneumothorax, status post ultrasound-guided right thoracentesis. Dictated by: Bull Mendes M.D. on 06/18/2017 at 20:41 Approved by: Bull Mendes M.D. on 06/18/2017 at 20:43
[2017-06-18 21:13] VITALS: BP 151/82; PULSE 64; RESP 18; O2SAT 94
[2017-06-18] MEDS: LORazepam 0.5 mg Tablet PO PRN (21:22)
--- NOTE | 2017-06-18 21:44 | DRSVH ---
PROCEDURE: US GUIDED THORACENTESIS BY REFERRING PHYSICIAN ([id number]) INDICATIONS: 87 year-old male with bilateral pleural effusions. TECHNIQUE: The indications, alternatives, benefits, risks, and complications of the procedure were explained to the patient and his family. Written informed consent was obtained and placed in the chart. The ches t was examined sonographically, and an appropriate site was chosen for thoracentesis. The skin was p repared and draped in the usual sterile fashion, and 1% lidocaine was infiltrated from the skin down through the pleural surface. A 19-gauge catheter-covered needle was then introduced into the pleural space, the catheter was advanced and the needle was withdrawn, and thereafter pleural fluid was aspi rated. The catheter was then removed and a dressing was applied. COMPARISON: [facility], CR, XR CHEST 1VW, 06/18/2017, 8:51. [facility], CR, XR CHEST 2VW, 06/15/2017, 16:59. FINDINGS: Access site: Posterior right hemithorax. Needle: One-Step centesis catheter with introducer needle. Fluid volume and description: 1060 mL of yellowish clear fluid. Fluid sent for diagnostic testing: No. Medications: 1% lidocaine for local anaesthesia. Complications: None; post-procedural chest radiograph is pending to assess for pneumothorax. IMPRESSION: Successful ultrasound-guided right therapeutic thoracentesis. Dictated by: Bull Mendes M.D. on 06/18/2017 at 21:41 Approved by: Bull Mendes M.D. on 06/18/2017 at 21:43
[2017-06-19 04:40] VITALS: BP 160/81; PULSE 62; RESP 18; O2SAT 95
--- NOTE | 2017-06-19 06:16 | NUR ---
Pain/Thorancentesis: Pt had intermittent back/generalized pain during the night 05/15; IV medication administered, effective. Thoracenteses performed at start of shift, pt c/o back pain after; band aid in place, CDI. Pt RA, denies n/v and SOB. Pt slept most of the night, pleasant and cooperative with care.
[2017-06-19] MEDS: Lidocaine Topical 5% Patch TOPICAL SCH (08:41)
[2017-06-19] MEDS: Diltiazem CD 120 mg ER24 Capsule PO SCH (08:41)
[2017-06-19] MEDS: Dexamethasone 4 mg/mL Inj IVPUSH SCH (08:41)
--- NOTE | 2017-06-19 08:54 | PCM.PALLBR ---
Palliative Care Recommendation Summary of palliative recommendations: This is an 87-year-old gentleman with history of chronic cardiomyopathy, chronic atrial fibrillation on anticoagulation therapy, metastatic prostate cancer with metastases to the bone, status post stent placement, who [facility] department for dizziness following 2 weeks of progressive diffuse weakness on 06/04. He had previously received 4 courses of chemotherapy under the care of Dr. Dotson and decided to stop chemotherapy due to side effects. On his 06/04-06/07 admission, he was found to have atrial fibrillation with rapid ventricular rate, he was started on diltiazem drip which decreased his heart rate, converted to oral antiarrhythmic medications and and discharged when he became stable. He was readmitted 06/10 with persistent dizziness and some pain, and has been diagnosed with pneumonia. -Symptom management (Pain/other): 1. recommend ongoing tylenol, toradol for mild pain and prn morphine concentrate (Roxanol) 4mg po q 3 hours prn breakthrough pain/SOB. 2. on 06/14, Dr. Pollock discussed starting low dose steroid with the family, counselling that, when given once in a.m to treat bone pain and reduce inflammation and dizziness of mastoiditis-- it may be helpful. They have agreed with trying this medication. This has seemed to help, and doesnt interfere with pt's sleeping at night. Dexamethasone 4mg IV daily was started 06/15. Today is day 5. D/C IV today and start oral dosing on discharge today. So pt to go home with 4mg dexamethasone po to take with breakfast every morning. Dr. Pollock discussed above changes to po meds with pt's RN this morning. -DPOA/Advanced Directives/POLST: Pt was FULL CODE on admission, but after our discussion on 06/14, code changed to DNR/DNI. -Family/emotional support: Lives with , has 3 living children in the area including biological and stepchildren. His stepdaughter, Rosy Rios, is a respiratory therapist here at [facility]. We have been given permission to discuss his health with the daughters. conveys that they have a lot of support from family and friends in the area. Family Contact phone numbers: 1. Vika [phone] 2.Gudelia Monroy dtr [phone] 3. Elba Tony dtr [phone] 4. kristin Boykin, RT at [facility], at [phone]. Spiritual Needs: Family is [employer], attend [employer] in [place]. Their asset liability analyst, Father Alejandro Rivera, has been visiting patient regularly. Family Conference 06/13: see details in my 06/13 note. Disposition: We anticipate that patient is discharged home today 06/19 and [facility] will open with him this afternoon at 2pm at his home. Problems: End of Life Preferences changed to DNR/DNI today 06/14 Goals of Care 06/06 discussion: patient would like to try rehabilitation to get to a level of healthy was previous to this last 2 weeks of decline. If after discharge and a trial of home health, his condition continues to get worse they will discuss palliative care and potentially hospice at that time. 06/14: is ready to speak to hospice about possible services in the home on discharge. 06/15: Family has decided to sign up with hospice. Resuscitation Status Resuscitation Status: DNR/DNI:Do Not Resuscitate/Intubate ( is alternate decision-maker) Total time 25 minutes; >50% face to face with patient and/or family, providing counselling regarding plans and recommendations, and in care coordination with his/her medical teams. Palliative Brief Note Date of Service Jun 19, [address] Pollock visits for follow-up. Weekend notes, labs and MAR reviewed prior to visit. Pt sleeping soundly. RN this morning reports he had a "hard time with pain" last night after thoracentesis and has been sleeping most of day shift so far. IR reports 1060ml clear yellow chest fluid removed 06/18 evening. S: pt unable to interact, heavy sleeping Appears comfortable, not moving arms or legs, regular breathing, no signs of discomfort. Liliane Pollock MD Jun 19, 2017 08:54 Would comfort care be more important than being awake and alert? Undetermined at this time. If patient is no longer alert and aware because of their illness, would you choose comfort for them? Yes. In the past, during 06/06 conference with Palliative Care, patient stated if he was non-responsive to "just pull the plug. " Disposition: We anticipate that patient is discharged home today 06/19 and [facility] will open with him this afternoon at 2pm at his home. Problems: End of Life Preferences changed to DNR/DNI today 06/14 Goals of Care 06/06 discussion: patient would like to try rehabilitation to get to a level of healthy was previous to this last 2 weeks of decline. If after discharge and a trial of home health, his condition continues to get worse they will discuss palliative care and potentially hospice at that time. 06/14: is ready to speak to hospice about possible services in the home on discharge. 06/15: Family has decided to sign up with hospice. Resuscitation Status Resuscitation Status: DNR/DNI:Do Not Resuscitate/Intubate ( is alternate decision-maker) Total time [ ] minutes; >50% face to face with patient and/or family, providing counselling regarding plans and recommendations, and in care coordination with his/her medical teams. I also spent an additional [ ] minutes counseling for advanced care planning with the patient/the patients family/the surrogate decision maker. Palliative Brief Note Date of Service Jun 19, 2017 Liliane Pollock MD Jun 19, 2017 08:54
[2017-06-19] MEDS ORDERED: Morphine 2 mg/mL 5 mL Oral Solution PO PRN (09:15)
[2017-06-19] MEDS ORDERED: FAMO20T PO (10:21)
[2017-06-19] MEDS ORDERED: LORA2ORA4 PO (10:21)
[2017-06-19] MEDS ORDERED: MELA5TAB14 PO (10:21)
[2017-06-19] MEDS ORDERED: POLY17PO6 PO (10:21)
[2017-06-19] MEDS ORDERED: DXM4T PO (10:21)
[2017-06-19] MEDS ORDERED: MORP10SO PO (10:21)
[2017-06-19] MEDS ORDERED: SENN-133 PO (10:21)
--- NOTE | 2017-06-19 10:24 | PCM.DIMED ---
Discharge Instructions Date of Service Jun 19, 2017 Dates of Hospitalization Jun 10, 2017 at 12:26 Discharge Diagnosis Discharge Diagnosis Hospital Acquired Pneumonia, Prostate cancer with severe bony metastasis, pleural effusions b/l, ALEJANDRO, Afib, Orthostatic Hypotension, Anemia of chronic Disease Diet Discharge Diet: No restrictions Activity Discharge Activity: Other (hospice care) Call your provider Call your provider for: Fever or Chills, Shortness of breath, Bleeding, Chest pain, Vomitting, Excessive diarrhea, Weakness (unilateral), Other Patient Instructions Patient Instructions Pt/OT recommend assistance for transfers in and out of bed and use of urinal and BSC only at this time as pt has been unable to safely demonstrate ambulation. He requires up to min A for all transfers at this time. Follow-up plan Patient will be on home hospice, he will be followed by them. Bhavya Ferreira DO Jun 19, 2017 10:24
[2017-06-19] MEDS ORDERED: ASPI-973 PO (10:26)
--- NOTE | 2017-06-19 11:15 | NUR ---
Discharge instructions reviewed with pt's . Reviewed medications/Rx, s/sx to call MD for. Pt is scheduled to have Hospice follow up later today. Pt's verbalized understanding of all instructions. Pt ready to discharge home with all belongings, accompanied by family.
--- NOTE | 2017-06-19 11:30 | NUR ---
Social Work-discharge: Data:EMR reviewed. Pt is on day 9 of hospitalization for pneumonia per H&P. Pt is medically stable for discharge. SW confirmed with Mayelin from Hospice that they are able to open with pt today between 2-3. DME has already been delivered. SW spoke with pt's Vika regarding transportation. At this time, pt does not qualify for BLS transport. SW discussed private pay cabulance. Pt states she will speak with family and get back in touch with SW. SW spoke with again who states that they have decided they would like to do transport and her son's will assist. Pt and agreeable to plan. RN updated and she will go over discharge information with family. RN,UC,pt/family, Hospice all updated and agreeable to plan. Assessment:pt to return home on Hospice services. Plan:Pt to discharge home today via POV at 1200. Hospice to open with pt today between 2-3. RN,UC,pt/family, Hospice all updated and agreeable to plan. JEFFERSON Zelaya
--- NOTE | 2017-06-19 15:53 | NUR ---
discharge patient discharge paperwork and instructions gone over with patient and family per day rn Frances Lyles. patient and patient's spouse states understanding regarding discharge instructions and states no questions. saline lock in right forearm dc'd, canula intact. patient dc'd via wheelchair with family to home in stable condition at 1530. all belongings with patient and family.
--- NOTE | 2017-06-20 00:22 | PCM.DC.MED ---
Discharge Summary Date of Service Jun 19, 2017 Dates of Hospitalization Date of Hospital Admission Jun 10, 2017 at 12:26 Date of Discharge: Jun 19, 2017 Providers: Admitting Physician: Liza Donis MD Primary Care Physician: Nopmarjan Attending Physician: Bhavya Gutierrez DO Diagnosis at Time of Discharge Diagnosis at Time of Discharge Hospital Acquired Pneumonia, Prostate cancer with severe bony metastasis, pleural effusions b/l, ALEJANDRO, Afib, Orthostatic Hypotension, Anemia of chronic Disease Consultations PT/OT, palliative care, cardiology Procedures XRay, CTs & MRIs PROCEDURE: X-RAY CHEST ONE VIEW, PORTABLE ([id number]) INDICATIONS: Shortness of breath TECHNIQUE: One view of the chest was acquired. COMPARISON: [facility], NM, NM BONE SCAN WHOLE BODY, 12/29/2016, 12: 58. [facility], CR, XR CHEST 1VW (PORTABLE), 06/03/2017, 23:47. [facility], CR, XR CHEST 2VW, 03/01/2017, 11:23. FINDINGS: Surgical changes and devices: None. Lungs and pleura: No pleural effusions or pneumothorax. Lungs are abnormal with what appears to be a mild pulmonary edema pattern and also left mid and lower lung pneumonia. There may be a slight degree of pneumonia the right lung base. Mediastinum: Mediastinal contours appear normal. Heart size is normal. Bones and chest wall: Previously present extensive suspicious bony lesions indicate presence of extensive metastatic disease, osteoblastic. Overlying soft tissues appear unremarkable. IMPRESSION: Left mid and lower lung pneumonia, possible slight pulmonary edema, possible slight medial right lung base pneumonia also. Extensive osteoblastic metastatic disease again noted. Dictated by: Bethel Trinh M.D. on 06/10/2017 at 10:35 Approved by: Bethel Trinh M.D. on 06/10/2017 at 10:37 PROCEDURE: CT CHEST WITHOUT CONTRAST ([id number]) INDICATIONS: dyspnea TECHNIQUE: Noncontrast 5 mm thick sections acquired from the pulmonary apices to the posterior costophrenic angles. 7 mm thick coronal and sagittal MIP reformats were then acquired. For radiation dose reduction, the following was used: automated exposure control, adjustment of mA and/or kV according to patient size. COMPARISON: None. FINDINGS: Image quality: Excellent. Lungs and pleura: No acute air space opacities that would suggest presence of pneumonia or metastatic disease but there is mild increased atelectasis at each lung base. There has been a small interval increase in the left pleural effusion but no definite change in the right pleural effusion from 06/04/17, and no interval development of pneumothorax. Central and peripheral airways are patent and normal in caliber. Mediastinum: Heart size is at the upper limits of normal. A significant change has occurred at the pericardium with a new significant pericardial effusion, measuring up to almost 3 cm in maximal AP dimension (series 2 image 48). No mediastinal adenopathy by size criteria. Thoracic aorta and central pulmonary arteries are normal in size. Esophagus is normal in caliber. No hiatal hernia. 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 No vertebral body compression fractures. No axillary or supraclavicular adenopathy by size criteria. Thyroid gland is is not well-visualized by this noncontrast CT. Abdomen: Visualized upper abdominal solid organs and bowel loops appear normal in the absence of contrast. IMPRESSION: Significant short term interval increase in size of a pericardial effusion now large measuring up to almost 3 cm in maximal AP dimension. Restriction of normal cardiac function may be associated. No definite interval increase in right pleural effusion, small interval increase in left pleural effusion. 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 Dictated by: Bethel Trinh M.D. on 06/10/2017 at 18:40 Approved by: Bethel Trinh M.D. on 06/10/2017 at 18:47 PROCEDURE: MRI BRAIN WITH AND WITHOUT CONTRAST ([id number]) INDICATIONS: dizziness x 2 months TECHNIQUE: Noncontrast axial T1 spin echo, axial T2 fast spin echo, sagittal and axial FLAIR, coronal T2 fast spin echo, axial gradient echo, axial diffusion and ADC through the brain. After the administration of contrast, axial and coronal 3D VIBE or T1 spin echo with fat saturation through the brain. COMPARISON: [facility], MR, MR BRAIN W&WO CON, 12/29/2016, 12:09. [facility], NM, NM BONE SCAN WHOLE BODY, 12/29/2016, 12:58. FINDINGS: Image quality: Excellent. CSF Spaces: Basal cisterns are patent. No extra-axial fluid collections. Ventricles are normal in size and shape. Brain: No midline shift. No intracranial bleeds or masses. No abnormal intracranial enhancement. The brainstem appears normal. Diffusion-weighted images demonstrate no acute ischemic insults. No chronic ischemic insults. Normal intravascular flow voids are present. Note is made of stable appearing susceptibility artifact at the brainstem/cerebellar junction at the low posterior cranial fossa on the left, best seen centered on series 8 and 9 images 13. A mass or evidence of vascular malformation in this area is not seen on postcontrast imaging. This has not changed from initial MR from . Skull and face: Calvarial marrow is normal in signal but at the skull base the clivus and medial Kesha bones, left greater than right, show heterogeneous elevated contrast enhancement potentially representing metastatic disease without identifiable mass effect in those areas (for example, see series 12 image 21. Orbits appear normal. Sinuses: Sinuses and mastoids appear clear except for relatively prominent bilateral mastoid air cell fluid signal, right greater than left, and somewhat worsened on the left when compared to the 12/23 MRI. IMPRESSION: 1. Mastoid air cell opacification is quite prominent in this patient, right greater than left, and has mildly worsened from 12/29/16 on the left. It is possible that mastoiditis may relate to the clinical history of dizziness over several months. 2. Mild microvascular atherosclerotic change in the deep white matter of each hemisphere. No brain parenchymal mass or area of stroke or hemorrhage is found. 3. There is a small area of susceptibility artifact at the posterior cranial fossa at the junction of the medullary portion of the brainstem and the cerebellum. The contrast enhanced portion of the study does not show a vascular malformation at this site. 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 This is positioned near the origin of the seventh and eighth cranial nerves on the left, but has not changed from December of this year and reportedly the dizziness symptomatology has been present for 2 months (from information provided to the MR technologist). 4. The patient carries a history of prostate carcinoma, and there is no visualized evidence of metastatic disease to the brain parenchyma or meningeal surfaces. However, there is marrow contrast enhancement seen at the clivus and at the medial Kesha ridges bilaterally, left greater than right, and nuclear medicine bone scan from December of this year has documented extensive osseous metastatic disease including potentially extending cephalad into the skull base. Dictated by: Bethel Trinh M.D. on 06/10/2017 at 14:45 Approved by: Bethel Trinh M.D. on 06/10/2017 at 15:02 ECG 12 Lead According to LINK ABURTO and EKG image is not available to me at the time of this dictation: Sinus rhythm rate of 79 and her T waves V1 to V6 Q waves V1 and V2 T- wave inversions. Unchanged from prior. Cardiac Echo Impression Echocardiogram Report Name: NIRAJ CLARK Study Date: 06/11/2017 Height: 70 in Hospital Exam Location: [facility] Weight: 159 lb Gender: Male BSA: 1.9 m2 : 1930 Age: 87 yrs BP: 128/67 mm Hg Reason For Study: Dyspnea Ordering Physician: [facility] Performed By: Chel Shore Referring Physician: Anthony Sahni Interpretation Summary The left ventricle is normal in size. The ejection fraction is estimated to be 55-60%. The right ventricle is normal size. The right ventricular systolic function is normal. There is mild mitral regurgitation. Compared to the prior echo study, there has been an increase in the severity of mitral regurgitation. There is a moderate to large pericardial effusion noted (Patient has chonically moderate to large pericardial effusion seen in 10/2014 echo as well. In this study, there appears to be mild worsening anterior to right ventricle. Based on right ventricle contractility pattern, there is some evidence of increased intrapericardial pressure, however, do not see classical tamponade pattern. IVC is not dilated. doppler profile across the david valve do not support tamponade.. BP: 128/67 mmHg. The IVC is of normal diameter and collapses greater than 50% with a sniff. This suggests a low right atrial pressure of 3 mm Hg. There are moderate-sized bilateral pleural effusions noted (New). 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 He has a history of AF and past PE for which he is on Coumadin, and coronary artery disease status post PTCA. He presents with chief complaint of dizziness x 2 months. The symptoms started after he stopped chemotherapy. However he notes no improvement in the symptoms. His dizziness is more of a lightheadedness. He notes that it is not necessarily positional. It can happen when he sitting. He had a CT of chest on June 04 which was interpreted as no evidence for central pulmonary emboli, moderate bilateral dependent mobile pleural effusions which were new since December 2016 of uncertain etiology. He also has moderate chronic circumferential pericardial effusion. He also was seen widespread sclerotic bony metastases from prostate carcinoma. He was also admitted here from June 04 to June 07 with similar symptoms but was found to be atrial fibrillation with rapid ventricular response. Associated symptoms include generalized weakness (significant change from baseline causing trouble walking and doing activities daily) and diaphoresis. He has no chest pain, dyspnea, palpitations, fever,chills, or cough. He has had poor appetite and weakness and for this reason his chemotherapy (docetaxel) was stopped. Hospital Course: He was re-admitted 06/10 for further evaluation of dizziness with MRI brain with/without contrast, CT chest, ECHO and evaluate for possible healthcare associated pneumonia, which was later demonstrated by CXR. His Chest CT showed a significant short term interval increase in size of a pericardial effusion now large measuring up to almost 3 cm in maximal AP dimension. Restriction of normal cardiac function may be associated. 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 His CXR on 06/10 showed a left mid and lower lung pneumonia, possible slight pulmonary edema, possible slight medial right lung base pneumonia also. Extensive osteoblastic metastatic disease again noted. 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 on left (may also contribute to dizziness). He also has (previously known) skull metastases. Hospital Course #Dyspnea, subacute, present on admission not improving - Echo confirmed worsening b/l pleural effusion, prostate cancer w/ metastasis --Likely due to severe MR causing HF -Check venous blood gas which was essentially normal as noted above -CT of chest did show larger pericardial effusion and hence await results of echocardiogram -Cardiology consult as above -CXR is ordered on 06/15, shows: pulm edema and diffuse bone mets. No pleural effusions were noted. If his dyspnea gets worse we will request radiology guided thoracentesis to drain pleural effusions -Palliative care is consulted, patient is made DNR/DNI and 06/14, is agreeable to a visit with hospice -PT/OT upon patient's request: "If pt transitions to hospice, recommend assistance for transfers in and out of bed and use of urinal and BSC only at this time as pt has been unable to safely demonstrate ambulation. He requires up to min A for all transfers at this time. If pt does not transition to hospice, recommend discharge to SNF for further strengthening and functional mobility training as he is not at his baseline and would not be able to mobilize within his home based on symptoms. PT to see pt 1-2 times as plan of care continues to be determined and if rehab is the plan, will progress as pt tolerates. -- Called radiology and interventional radiology for thoracentesis. They agreed to do the procedure however INR is therapeutic. -- 06/16 Discontinued Coumadin, I have discussed this with both patient and his . They are agreeable with the plan. Gave him by mouth vitamin Kg 5 m. To help reverse the INR. -- Unlikely that radiology would do a thoracentesis over the , we will have to consider doing that procedure on Monday. -- Second dose of vitamin K PO 5 mg 06/17 night,INR 1. 27 06/18 -- Ordered ultrasound-guided thoracentesis, contacted radiology who agreed to do the procedure 06/18. He had one on the left side. Radiologist Dr. Trinh does not recommend another procedure on R side at this time. -- Morphine , Lorazepam liquid PO PRN for d/c -- Dexamethasone PO for d/c #Possible obstructive sleep apnea, subacute times months, present on admission -nocturnal pulse oximetry, 1L Oxygen PRN #Persistent dizziness/lightheadedness 2 months, present on admission stable -Anemia vs Prostae cancer Mets vs Orthostatic Hypotension as DDX -Brain MRI on 06/10 showed concern for mets at the skull base. -By history is not positional. Worse since recent discharge and unclear etiology he currently is rate controlled upon admission here -Positive orthostatics, recommended proper hydration and compression stockings, and if voiding quick neck moment -Appreciate cardiology consultation. The patient was dehydrated and orthostatics done did corroborate that diagnosis. -Patient received a unit of blood on 06/13. H&H remained stable - Continue PO dexamethasone --Discontinued IV fluids on 06/15 #Acute on chronic anemia, present on admission -Patient has been requiring episodic blood transfusions so at this point we will transfuse 1 unit PRBC -Guaiac stools: Negative -Check B12 folate iron levels: Not low -Continue to monitor #History of atrial fibrillation, chronic, present on admission -Discontinued Coumadin as above -Consider putting patient on aspirin at the time of discharge -Check echocardiogram, see report above -Evening of June 11 patient did have conversion into atrial fibrillation at a rate of 100-110 and currently spontaneously went back into sinus rhythm -Telemetry was discontinued on 06/15 #Possible healthcare associated pneumonia, acute, present on admission ruled out - CT of chest did not show any infiltrates pneumonic and hence IV antibiotics were stopped on June 12. 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, chronic, present on admission -Patient does not want any more chemotherapy at this point in time due to significant side effects -Alkaline phosphatase has been fairly stable but elevated -Palliative care is consulted, patient is made DNR/DNI and 06/15, and pt agree to start hospice care on 06/19 #DVT prophylaxis -Patient is on therapeutic Coumadin and will continue #CODE STATUS -Did discuss with patient and family and is DO NOT RESUSCITATE/DO NOT INTUBATE Exam Vital Signs (Last) Date Time Temp Pulse Resp B/P Pulse Ox O2 Delivery O2 Flow Rate FiO2 06/19/17 08:40 Supplement Oxygen 06/19/17 04:40 36.4 62 18 160/81 95 06/17/17 17:17 1.00 Exam Situational: Elderly male in no acute distress Head: Normocephalic atraumatic Chest: Some decreased breath sounds anteriorly and crackles at his bases when auscultated laterally Cor: Regular rate and rhythm and no murmurs Abdomen: Soft nontender bowel sounds present Extremities: No pedal edema Psych:affect appropriate, negative for anxiety Skin: No rashes Neuro: Alert and oriented 3 Test 06/10/17 10:00 06/10/17 19:23 06/13/17 05:20 06/14/17 05:20 Lactic Acid Level 1.6mmol/L (0.4-2.0) Troponin T 0.010ug/L (0.0-0.011) Pro-B-Type Natriuretic Peptide 2347pg/mL (0-486) Procalcitonin 0.19ng/mL (0.00-0.08) Hold Jimenes Top Tube Received (Received) Urine Color Yellow (YELLOW) Urine Appearance Clear (CLEAR,HAZY) Urine pH 5.5 (5.0-8.0) Urine Specific [place] 1.010 (1.003-1.035) Urine Protein Negativemg/dL (NEG,TRACE) Urine Glucose (UA) Negativemg/dL (NEGATIVE) Urine Ketones Negativemg/dL (NEGATIVE) Urine Occult Blood Negative (NEGATIVE) Urine Nitrite Negative (NEGATIVE) Urine Bilirubin Negative (NEGATIVE) Urine Urobilinogen Normalmg/dL (NORMAL) Urine Leukocyte Esterase Negative (NEGATIVE) Urine RBC 0-2/hpf (0-2) Urine WBC 0-5/hpf (0-5) Urine Epithelial Cells Few/hpf (NONE-MOD) Urine Crystals None seen (NONE SEEN) Urine Bacteria Few/hpf (NONE-FEW) Urine Hyaline Casts None/lpf (NONE) Urine Granular Casts None seen (NONE SEEN) Urine Waxy Casts None seen (NONE SEEN) Urine Red Blood Cell Casts None seen (NONE SEEN) Urine White Blood Cell Casts None seen (NONE SEEN) Urine Mucus Present (None Seen) Urine Trichomonas None seen (NONE SEEN) Urine Yeast None (NONE SEEN) Urinalysis Comment None Urine Culture Reflexed Not indicated Iron Level 42ug/dL (35-150) Total Iron Binding Capacity 136ug/dL (250-450) Percent Iron Saturation 31%sat (15-50) Unsaturated Iron Binding 93.6ug/dL White Blood Count 7.2th/mm3 (3.8-10.1) Red Blood Count 3.67mil/mm3 (4.40-5.80) Hemoglobin 9.9g/dL (13.8-17.2) Hematocrit 30.5% (41.0-50.0) Mean Corpuscular Volume 83.1fL (81-100) Mean Corpuscular Hemoglobin 27.0pg (27.0-35.0) Mean Corpuscular Hemoglobin Concent 32.5% (32.0-37.0) Red Cell Distribution Width 19.8% (12.3-15.4) Neutrophils (%) (Auto) 72% (40-74) Lymphocytes (%) (Auto) 20% (14-46) Monocytes (%) (Auto) 5% (4-12) Eosinophils (%) (Auto) 0% (0-5) Basophils (%) (Auto) 1% (0-3) Band Neutrophils % 3% (1-5) Nucleated Red Blood Cells 3/100 WBC (0-24) Hematology Comments Vitamin B12 Level 1497pg/mL (211-946) Folate 3.6ng/mL (>3.0) Test 06/15/17 05:43 06/18/17 06:30 06/18/17 13:44 Sodium Level 138mEq/L (134-144) Potassium Level 3.6mEq/L (3.5-5.2) Chloride Level 105mEq/L (97-108) Carbon Dioxide Level 17mmol/L (18-29) Blood Urea Nitrogen 14mg/dL (8-27) Creatinine 0.63mg/dL (0.76-1.27) Estimat Glomerular Filtration Rate 128mL/min (>59) Glucose Level 83mg/dL (60-99) Calcium Level 7.6mg/dL (8.5-10.1) Total Bilirubin 0.4mg/dL (0.0-1.2) Aspartate Amino Transf (AST/SGOT) 60U/L (0-50) Alanine Aminotransferase (ALT/SGPT) 10U/L (0-44) Alkaline Phosphatase 3406U/L (25-160) Total Protein 4.0g/dL (6.4-8.4) Albumin 2.4g/dL (3.4-5.0) Prothrombin Time 13.7sec (8.1-12.5) Prothromb Time International Ratio 1.27ratio Platelet Count 94bil/L (150-400) Discharge Medications Discharge Medications Aspirin (Aspirin) 81 Mg Tablet 81 MG PO DAILY Prescribed by: BHAVYA GUTIERREZ DO Dexamethasone (Dexamethasone) 4 Mg Tablet 4 MG PO DAILYWM Prescribed by: BHAVYA GUTIERREZ DO Diltiazem ER (Cardizem CD) 240 Mg Cap.er.24h 240 MG PO DAILY Prescribed by: SHANNAN KENDALL DO Famotidine (Pepcid) 20 Mg Tablet 20 MG PO BID Prescribed by: BHAVYA GUTIERREZ DO Ubidecarenone (Co Q-10) 100 Mg Capsule 100 MG PO DAILY (Reported) As needed Lorazepam (Lorazepam Oral Concentrate) 2 Mg/1 Ml Oral.conc 0.5 MG PO HS PRN PRN For Insomnia Prescribed by: BHAVYA GUTIERREZ DO Melatonin (Melatonin) 5 Mg Tablet 5 MG PO HS PRN PRN Insomnia Prescribed by: BHAVYA GUTIERREZ DO Morphine Sulfate Oral Soln (Morphine Sulfate Oral Soln) 10 Mg/5 Ml Solution 4 MG PO Q4H PRN PRN For Pain Prescribed by: BHAVYA GUTIERREZ DO Polyethylene Glycol 3350 (Miralax) 17 Gm Powd.pack 17 GM PO DAILY PRN PRN For Constipation Prescribed by: BHAVYA GUTIERREZ DO Sennosides (Senna) 8.6 Mg Tablet 17.2 MG PO BID PRN PRN For Constipation Prescribed by: BHAVYA GUTIERREZ DO Miscellaneous Medications Ascorbic Acid/Ascorbate Sodium (Vitamin C 500 mg Wafer) 500 Mg Wafer 1,000 MG PO (Reported) Followup Plan Follow-up plan Patient will be on home hospice, he will be followed by them. Discharge Diet: No restrictions Discharge Activity: Other (hospice care) Patient Instructions Pt/OT recommend assistance for transfers in and out of bed and use of urinal and BSC only at this time as pt has been unable to safely demonstrate ambulation. He requires up to min A for all transfers at this time. Time spent >35 min spent in preparation for this discharge, > 50% of which spent in coordinating and counseling. Bhavya Gutierrez DO Jun 20, 2017 00:22
--- NOTE | 2017-06-20 12:26 | NUR ---
Palliative care note D/A: Phone call on 06/19/17 from Mayelin at [facility] at approx 1430 to indicate that [facility] RN was at the family home but pt was not present. Pt is still in room, discussed with vaughn Bartlett who noted that spouse was to have picked pt up by 1230. Asked Mayelin to communicate with [facility] in regards to plans to open on 06/19/17. Pt noted to have discharged today. Phone call from Mayelin at [facility] to inquire about palliative care provider having completed POLST during admit. Did not find copy of POLST on packet, discussed with Dr. Pollock who notes that she was not able to complete POLST during admit. Mayelin informed. Pt was opened to care at [facility] on 06/19/17. P: No further need for PC to follow at this time. Josefina PERAZA, CCM
== END 2017-06-19 15:35 | disposition hospice, home (50) | DRG 186 ==
LOC: SED 09:29 → MPC 12:26
PROVIDERS: ADMIT Specialist; ATTEND Specialist
PROC: 4A033R1 Measurement of Arterial Saturation, Peripheral, Percutaneous Approach (ICD-10-PCS; 2017-06-10)
PROC: 30233N1 Transfusion of Nonautologous Red Blood Cells into Peripheral Vein, Percutaneous Approach (ICD-10-PCS; 2017-06-13)
PROC: 0W993ZZ Drainage of Right Pleural Cavity, Percutaneous Approach (ICD-10-PCS; principal; 2017-06-18)
DX: J90 Pleural effusion, not elsewhere classified (principal); E43 Unspecified severe protein-calorie malnutrition; I31.3 Pericardial effusion (noninflammatory); C79.51 Secondary malignant neoplasm of bone; E87.3 Alkalosis; C79.31 Secondary malignant neoplasm of brain; R42 Dizziness and giddiness; C61 Malignant neoplasm of prostate; G47.33 Obstructive sleep apnea (adult) (pediatric); G47.00 Insomnia, unspecified; Z68.21 Body mass index [BMI] 21.0-21.9, adult; Z79.01 Long term (current) use of anticoagulants; I25.10 Atherosclerotic heart disease of native coronary artery without angina pectoris; I10 Essential (primary) hypertension; Z87.891 Personal history of nicotine dependence; I48.0 Paroxysmal atrial fibrillation; Z95.5 Presence of coronary angioplasty implant and graft; I25.2 Old myocardial infarction; D64.9 Anemia, unspecified; E86.0 Dehydration; Z92.21 Personal history of antineoplastic chemotherapy; Z66 Do not resuscitate